=== PATIENT | female | born 1965 | race Two or more races ===

== ENCOUNTER → 2020-12-07 | Outpatient (CLI) | payer MEDICAID ==
[2020-12-07 10:22] LABS: Basophils # (auto) 0.1 10 ^3/uL (0-0.2); Basophils % (auto) 1.1 % (0.0-2.0); Hematocrit 35.7 % (36.0-46.0); Hemoglobin 11.6 g/dL (12.2-16.2); Mean Corpuscular Hgb Conc. 32.5 g/dL (32.0-36.0); Monocytes # (auto) 0.4 10 ^3/uL (0-1.3); Neutrophils # (auto) 5.7 10 ^3/uL (1.6-8.6); Urine Bacteria NONE SEEN /hpf (None Seen); Urine Blood TRACE /uL (Negative); Urine Specific Gravity 1.017 (1.001-1.035); Urine WBC 4 /hpf (0 - 5)
[2020-12-07 10:26] LABS: Eosinophils # (auto) 0.6 10 ^3/uL (0-0.8); Eosinophils % (auto) 5.7 % (0.0-7.0); Lymphocytes % (auto) 30.9 % (10.0-50.0); Mean Corpuscular Hemoglobin 26.3 pg (28.0-32.0); Mean Corpuscular Volume 80.9 fL (80.0-100.0); Monocytes % (auto) 3.7 % (0.0-12.0); Neutrophils % (auto) 58.6 % (37.0-80.0); Platelet Count (auto) 354 10^3/uL (140-450); Red Blood Cells 4.41 10^6/uL (4.0-5.20); Red Cell Distribution Width 16.8 % (11.8-14.3); White Blood Cell 9.8 10^3/uL (4.4-10.8)
[2020-12-07 10:51] LABS: Albumin 1.5 g/dL (3.4-5.0); Potassium 4.6 mmol/L (3.5-5.1)
[2020-12-07 10:55] LABS: BUN/Creatinine Ratio 13.9; Bilirubin, Total 0.2 mg/dL (0.2-1.0); Total Protein 5.9 g/dL (6.4-8.2)
== END | disposition home or self-care (01) ==
LOC: LAB 09:47
PROVIDERS: ATTEND Internal Medicine
DX: I10 Essential (primary) hypertension (principal); E11.9 Type 2 diabetes mellitus without complications; E78.5 Hyperlipidemia, unspecified; Z12.11 Encounter for screening for malignant neoplasm of colon
CPT/HCPCS: 36415; 80053; 80061; 81001; 82043; 83036; 85025

== ENCOUNTER → 2021-03-13 | Outpatient (CLI) | payer MEDICAID ==
[2021-03-13 10:24] LABS: Alanine Aminotransferase 11 U/L (13-56); Albumin 1.6 g/dL (3.4-5.0); Alkaline Phosphatase 93 U/L (45-117); Aspartate Aminotransferase 14 U/L (15-37); Bilirubin, Direct < 0.1 mg/dL (0-0.2); Bilirubin, Total 0.2 mg/dL (0.2-1.0); Total Protein 5.5 g/dL (6.4-8.2)
== END | disposition home or self-care (01) ==
LOC: LAB 09:00
PROVIDERS: ATTEND Internal Medicine
DX: E11.9 Type 2 diabetes mellitus without complications (principal)
CPT/HCPCS: 36415; 80076

== ENCOUNTER → 2021-05-08 | Outpatient (CLI) | payer MEDICAID ==
[2021-05-08 09:00] LABS: Alanine Aminotransferase 17 U/L (13-56); Albumin 1.7 g/dL (3.4-5.0); Bilirubin, Direct < 0.1 mg/dL (0-0.2)
[2021-05-08 09:03] LABS: Alkaline Phosphatase 105 U/L (45-117); Aspartate Aminotransferase 16 U/L (15-37); Bilirubin, Total 0.2 mg/dL (0.2-1.0); Cholesterol 269 mg/dL (< 200); HDL Cholesterol 58 mg/dL (40-59); LDL Cholesterol 159 mg/dL (< 100); Total Protein 5.5 g/dL (6.4-8.2); Triglycerides 274 mg/dL (< 150)
== END | disposition home or self-care (01) ==
LOC: LAB 08:20
PROVIDERS: ATTEND Internal Medicine
DX: E11.9 Type 2 diabetes mellitus without complications (principal); E78.5 Hyperlipidemia, unspecified
CPT/HCPCS: 36415; 80061; 80076; 83036

== ENCOUNTER 2021-05-22 08:58 | Inpatient (IN) | payer MEDICAID ==
[~2021-05-22] VITALS: Ht 162.6 cm; Wt 84.2 kg
[2021-05-22 09:38] LABS: Basophils # (auto) 0.1 10 ^3/uL (0-0.2); Basophils % (auto) 1.2 % (0.0-2.0); Eosinophils # (auto) 0.7 10 ^3/uL (0-0.8); Eosinophils % (auto) 7.1 % (0.0-7.0); Hematocrit 34.8 % (36.0-46.0); Hemoglobin 11.6 g/dL (12.2-16.2); Lymphocytes # (auto) 3.2 10 ^3/uL (0.4-5.4); Lymphocytes % (auto) 30.7 % (10.0-50.0); Mean Corpuscular Hemoglobin 29.3 pg (28.0-32.0); Mean Corpuscular Hgb Conc. 33.2 g/dL (32.0-36.0); Mean Corpuscular Volume 88.1 fL (80.0-100.0); Monocytes # (auto) 0.5 10 ^3/uL (0-1.3); Neutrophils # (auto) 5.8 10 ^3/uL (1.6-8.6); Red Blood Cells 3.95 10^6/uL (4.0-5.20); Red Cell Distribution Width 16.2 % (11.8-14.3); White Blood Cell 10.3 10^3/uL (4.4-10.8)
[2021-05-22 10:02] LABS: Potassium 4.6 mmol/L (3.5-5.1)
[2021-05-22 10:11] LABS: Albumin 1.6 g/dL (3.4-5.0); BUN/Creatinine Ratio 13.9; Bilirubin, Total 0.2 mg/dL (0.2-1.0); Calcium 7.3 mg/dL (8.5-10.1); Total Protein 5.8 g/dL (6.4-8.2)
[2021-05-22] MEDS ORDERED: ONDANSETRON HCL 4 MG/2 ML VIAL IV ONE (10:30)
[2021-05-22] MEDS ORDERED: MORPHINE SULFATE 4 MG/ML SYR/VIAL IV ONE (10:30)
[2021-05-22] MEDS ORDERED: NITROGLYCERIN 0.4 MG SL TAB SL ONE (10:30)
[2021-05-22] MEDS ORDERED: ASPirin 81 mg TAB PO ONE (10:30)
[2021-05-22] MEDS ORDERED: SODIUM CHLORIDE 0.9% 1,000 ML IV ONE (10:30)
[2021-05-22] MEDS ORDERED: ACETAMINOPHEN 500 MG TAB PO PRN (13:00)
[2021-05-22] MEDS ORDERED: ONDANSETRON HCL 4 MG/2 ML VIAL IV PRN (13:00)
[2021-05-22] MEDS ORDERED: MORPHINE SULF INJ 2 MG/ML SYRINGE 1ML IV PRN ×2 (13:00)
[2021-05-22] MEDS ORDERED: NITROGLYCERIN 0.4 MG SL TAB SL PRN (13:00)
[2021-05-22] MEDS ORDERED: ENOXAPARIN SOD 80 MG/0.8ML SYRINGE SC ONE (13:00)
[2021-05-22] MEDS: SODIUM CHLORIDE 0.9% 1,000 ML IV SCH ×2 (13:38→22:01)
[2021-05-22] MEDS: METOPROLOL TARTRATE 25 MG TAB PO SCH ×2 (14:00→22:00)
[2021-05-22] MEDS: InsuLIN REG 1unit/0.01ml Soln (100units/ml) SC SCH ×2 (17:00→22:00)
[2021-05-22] MEDS: ACCU-CHEK COMFORT CURVE STRIP VI SCH ×2 (17:02→22:01)
[2021-05-22 18:54] LABS: CRP High Sensitivity 0.1 mg/dL (< 0.3)
[2021-05-22 22:00] VITALS: BP 161/88
[2021-05-22 22:28] VITALS: BP 161/88
[2021-05-23 05:00] VITALS: BP 148/87
[2021-05-23 05:19] LABS: Basophils # (auto) 0.1 10 ^3/uL (0-0.2); Eosinophils # (auto) 0.6 10 ^3/uL (0-0.8); Eosinophils % (auto) 6.3 % (0.0-7.0); Hematocrit 31.4 % (36.0-46.0); Hemoglobin 10.9 g/dL (12.2-16.2); Lymphocytes # (auto) 2.6 10 ^3/uL (0.4-5.4); Lymphocytes % (auto) 27.6 % (10.0-50.0); Mean Corpuscular Hemoglobin 30.6 pg (28.0-32.0); Mean Corpuscular Hgb Conc. 34.6 g/dL (32.0-36.0); Mean Corpuscular Volume 88.4 fL (80.0-100.0); Monocytes # (auto) 0.4 10 ^3/uL (0-1.3); Monocytes % (auto) 4.5 % (0.0-12.0); Neutrophils # (auto) 5.7 10 ^3/uL (1.6-8.6); Neutrophils % (auto) 60.6 % (37.0-80.0); Red Blood Cells 3.55 10^6/uL (4.0-5.20); Red Cell Distribution Width 16.4 % (11.8-14.3); White Blood Cell 9.3 10^3/uL (4.4-10.8)
[2021-05-23 05:35] LABS: INR 0.99 (0.9-1.15); Partial Thromboplastin Time 30.5 sec (23.0-31.2)
[2021-05-23 05:44] LABS: BUN/Creatinine Ratio 16.4; Calcium 7.1 mg/dL (8.5-10.1); Potassium 4.8 mmol/L (3.5-5.1)
[2021-05-23] MEDS: METOPROLOL TARTRATE 25 MG TAB PO SCH ×3 (05:47→21:51)
[2021-05-23] MEDS: ACCU-CHEK COMFORT CURVE STRIP VI SCH ×4 (06:17→21:51)
[2021-05-23] MEDS: InsuLIN REG 1unit/0.01ml Soln (100units/ml) SC SCH ×4 (06:17→21:51)
[2021-05-23 08:15] VITALS: BP 172/86
[2021-05-23] MEDS ORDERED: hydrALAZINE HCL 20 MG/ML VL IV PRN (08:45)
[2021-05-23] MEDS: ENOXAPARIN SOD 80 MG/0.8ML SYRINGE SC SCH (09:40)
[2021-05-23] MEDS: ASPirin 81 mg TAB PO SCH (10:00)
[2021-05-23] MEDS: SODIUM CHLORIDE 0.9% 1,000 ML IV SCH ×2 (11:10→12:16)
[2021-05-23 12:23] LABS: Amphetamine Screen, Urine NEGATIVE (NEGATIVE); Barbiturate Scree,Urine NEGATIVE (NEGATIVE); Benzodiazephine Screen, Urine NEGATIVE (NEGATIVE); Cannabinoid Screen, Urine NEGATIVE (NEGATIVE); Cocaine Screen, Urine NEGATIVE (NEGATIVE); Opiate Scree,Urine NEGATIVE (NEGATIVE); Phencyclidine Screen, Urine NEGATIVE (NEGATIVE)
[2021-05-23 13:00] VITALS: BP 159/81
[2021-05-23] MEDS: amLODIPine BESYLATE 5 MG TAB PO SCH (13:00)
[2021-05-23] MEDS ORDERED: cloNIDine HCL 0.1 MG TAB PO PRN (13:30)
[2021-05-23] MEDS ORDERED: METF-370 PO (14:46)
[2021-05-23] MEDS ORDERED: GABA300C10 PO (14:47)
[2021-05-23 17:00] VITALS: BP 162/89
[2021-05-23 22:00] VITALS: BP 157/86
[2021-05-24 00:20] LABS: Urine Bacteria FEW /hpf (None Seen); Urine Blood TRACE /uL (Negative); Urine Specific Gravity 1.014 (1.001-1.035); Urine WBC 20 /hpf (0 - 5); Urine WBC Clumps PRESENT /hpf (None Seen)
[2021-05-24 00:25] LABS: Protein, Urine 805.9 mg/dL (0.0-11.9)
[2021-05-24] MEDS: SODIUM CHLORIDE 0.9% 1,000 ML IV SCH ×2 (05:00→17:14)
[2021-05-24 05:13] VITALS: BP 140/70
[2021-05-24 05:54] LABS: Basophils # (auto) 0.1 10 ^3/uL (0-0.2); Basophils % (auto) 1.3 % (0.0-2.0); Eosinophils # (auto) 0.7 10 ^3/uL (0-0.8); Hematocrit 32.3 % (36.0-46.0); Hemoglobin 10.8 g/dL (12.2-16.2); Lymphocytes # (auto) 2.9 10 ^3/uL (0.4-5.4); Lymphocytes % (auto) 30.2 % (10.0-50.0); Mean Corpuscular Hemoglobin 29.4 pg (28.0-32.0); Mean Corpuscular Hgb Conc. 33.5 g/dL (32.0-36.0); Mean Corpuscular Volume 87.6 fL (80.0-100.0); Monocytes # (auto) 0.5 10 ^3/uL (0-1.3); Monocytes % (auto) 4.7 % (0.0-12.0); Neutrophils # (auto) 5.5 10 ^3/uL (1.6-8.6); Neutrophils % (auto) 56.8 % (37.0-80.0); Red Blood Cells 3.69 10^6/uL (4.0-5.20); Red Cell Distribution Width 15.9 % (11.8-14.3); White Blood Cell 9.7 10^3/uL (4.4-10.8)
[2021-05-24] MEDS: METOPROLOL TARTRATE 25 MG TAB PO SCH ×3 (06:00→22:04)
[2021-05-24 06:11] LABS: BUN/Creatinine Ratio 18.3; Calcium 7.4 mg/dL (8.5-10.1); Potassium 4.5 mmol/L (3.5-5.1)
[2021-05-24] MEDS: ACCU-CHEK COMFORT CURVE STRIP VI SCH ×4 (06:26→22:04)
[2021-05-24] MEDS: InsuLIN REG 1unit/0.01ml Soln (100units/ml) SC SCH ×4 (07:00→22:00)
[2021-05-24 08:29] VITALS: BP 159/88
[2021-05-24] MEDS: ASPirin 81 mg TAB PO SCH (09:12)
[2021-05-24] MEDS: CITALOPRAM HYDROBR 20 MG TAB PO SCH (09:13)
[2021-05-24] MEDS: ENOXAPARIN SOD 80 MG/0.8ML SYRINGE SC SCH (09:13)
[2021-05-24] MEDS: amLODIPine BESYLATE 5 MG TAB PO SCH (09:14)
[2021-05-24 09:26] LABS: Hepatitis B Surface Antibody Negative
[2021-05-24 11:50] LABS: Hepatitis B Surface Antigen Negative (Negative)
[2021-05-24] MEDS ORDERED: ACETYLCYSTEINE ORAL for CIN 20%(200MG/ML) 4ML PO ONE (12:00)
[2021-05-24 12:26] VITALS: BP 118/71
[2021-05-24 16:50] VITALS: BP 139/94
[2021-05-24] MEDS: ACETYLCYSTEINE ORAL for CIN 20%(200MG/ML) 4ML PO SCH (22:03)
[2021-05-24] MEDS: hydrALAZINE HCL 25 MG TAB PO SCH (22:04)
[2021-05-24 22:26] VITALS: BP 161/87
[2021-05-25] MEDS: SODIUM CHLORIDE 0.9% 1,000 ML IV SCH ×2 (01:32→12:25)
[2021-05-25] MEDS: ACCU-CHEK COMFORT CURVE STRIP VI SCH ×3 (06:20→17:00)
[2021-05-25] MEDS: hydrALAZINE HCL 25 MG TAB PO SCH ×2 (06:20→14:00)
[2021-05-25] MEDS: METOPROLOL TARTRATE 25 MG TAB PO SCH ×2 (06:22→16:07)
[2021-05-25] MEDS: InsuLIN REG 1unit/0.01ml Soln (100units/ml) SC SCH ×3 (06:25→17:52)
[2021-05-25 07:48] LABS: Basophils # (auto) 0.1 10 ^3/uL (0-0.2); Basophils % (auto) 1.2 % (0.0-2.0); Eosinophils # (auto) 0.4 10 ^3/uL (0-0.8); Hematocrit 31.7 % (36.0-46.0); Hemoglobin 10.8 g/dL (12.2-16.2); Lymphocytes # (auto) 2.5 10 ^3/uL (0.4-5.4); Lymphocytes % (auto) 25.8 % (10.0-50.0); Mean Corpuscular Hemoglobin 29.9 pg (28.0-32.0); Mean Corpuscular Hgb Conc. 34.1 g/dL (32.0-36.0); Mean Corpuscular Volume 87.8 fL (80.0-100.0); Monocytes # (auto) 0.4 10 ^3/uL (0-1.3); Monocytes % (auto) 3.7 % (0.0-12.0); Neutrophils # (auto) 6.2 10 ^3/uL (1.6-8.6); Neutrophils % (auto) 65.3 % (37.0-80.0); Red Blood Cells 3.61 10^6/uL (4.0-5.20); White Blood Cell 9.6 10^3/uL (4.4-10.8)
[2021-05-25 07:57] LABS: Calcium 7.1 mg/dL (8.5-10.1); Potassium 4.5 mmol/L (3.5-5.1)
[2021-05-25] MEDS ORDERED: LIDOCAINE 2%HCL (LOCAL ANESTH.) INJ 20ML MDV ONE (08:10)
[2021-05-25] MEDS ORDERED: ANGIOMAX 250 MG VIAL IV ONE (09:47)
[2021-05-25] MEDS ORDERED: fentaNYL CITRATE 100 MCG/2 ML VL ONE (09:47)
[2021-05-25] MEDS ORDERED: MIDAZOLAM HCL 2MG/2ML 2ml VIAL (1mg/ml) ONE (09:48)
[2021-05-25] MEDS ORDERED: SODIUM CHL 0.9% 0 ML ONE (09:48)
[2021-05-25] MEDS ORDERED: HEPARIN SODIUM (PORCINE) 5000 UNITS/ML 1ML VIAL ONE (09:49)
[2021-05-25] MEDS ORDERED: VERAPAMIL 2.5MG/ML INJ 2ML VIAL IV ONE (09:49)
[2021-05-25] MEDS ORDERED: IODIXANOL 320MG/ML 100ML BTL IV ONE (09:49)
[2021-05-25] MEDS: CITALOPRAM HYDROBR 20 MG TAB PO SCH (12:26)
[2021-05-25] MEDS: ASPirin 81 mg TAB PO SCH (12:26)
[2021-05-25] MEDS: ENOXAPARIN SOD 80 MG/0.8ML SYRINGE SC SCH (12:26)
[2021-05-25] MEDS: ACETYLCYSTEINE ORAL for CIN 20%(200MG/ML) 4ML PO SCH (12:32)
[2021-05-25] MEDS: amLODIPine BESYLATE 5 MG TAB PO SCH (12:34)
[2021-05-25 13:00] VITALS: BP 139/75
[2021-05-25] MEDS ORDERED: AML5T PO (15:23)
[2021-05-25] MEDS ORDERED: CITA-77 PO (15:23)
[2021-05-25] MEDS ORDERED: MET25T PO (15:23)
[2021-05-25] MEDS ORDERED: HYDR25TA87 PO (15:23)
[2021-05-25] MEDS ORDERED: ASPI1CHW15 PO (15:23)
[2021-05-25 17:00] VITALS: BP 138/68
[2021-05-25 17:14] VITALS: BP 137/68
== END 2021-05-25 15:55 | disposition home or self-care (01) | DRG 190 ==
LOC: ER 08:58 → TELE 12:55 → TELE-WESTW 20:46
PROVIDERS: ADMIT Hospitalist; ATTEND Hospitalist
PROC: 4A023N7 Measurement of Cardiac Sampling and Pressure, Left Heart, Percutaneous Approach (ICD-10-PCS; principal; 2021-05-25)
PROC: B2111ZZ Fluoroscopy of Multiple Coronary Arteries using Low Osmolar Contrast (ICD-10-PCS; 2021-05-25)
PROC: B2151ZZ Fluoroscopy of Left Heart using Low Osmolar Contrast (ICD-10-PCS; 2021-05-25)
DX: I21.4 Non-ST elevation (NSTEMI) myocardial infarction (principal); E43 Unspecified severe protein-calorie malnutrition; E11.22 Type 2 diabetes mellitus with diabetic chronic kidney disease; N18.4 Chronic kidney disease, stage 4 (severe); E88.09 Other disorders of plasma-protein metabolism, not elsewhere classified; N04.9 Nephrotic syndrome with unspecified morphologic changes; I25.10 Atherosclerotic heart disease of native coronary artery without angina pectoris; T50.8X5A Adverse effect of diagnostic agents, initial encounter; Z20.822 Contact with and (suspected) exposure to COVID-19; D63.1 Anemia in chronic kidney disease; I13.0 Hypertensive heart and chronic kidney disease with heart failure and stage 1 through stage 4 chronic kidney disease, or unspecified chronic kidney disease; I50.30 Unspecified diastolic (congestive) heart failure; N17.9 Acute kidney failure, unspecified; Z82.41 Family history of sudden cardiac death; Z82.49 Family history of ischemic heart disease and other diseases of the circulatory system; Z83.3 Family history of diabetes mellitus; Z87.891 Personal history of nicotine dependence; Z68.31 Body mass index [BMI] 31.0-31.9, adult
CPT/HCPCS: 36415; 71045; 76775; 80048; 80053; 80061; 80307; 81001; 82570; 82962; 83880; 84156; 84484; 85025; 85610; 85730; 86141; 86703; 86706; 86803; 87340; 87426; 93005; 93306; 96361; 96372; 96374; 96375; 99152; 99291; G0378; J1815; J2250; J2405; Q9967

== ENCOUNTER → 2021-06-01 | Outpatient (CLI) | payer MEDICAID ==
[~2021-06-01] MED LIST: AML5T PO; ASPI1CHW15 PO; CITA-77 PO; GABA300C10 PO; HYDR25TA87 PO; MET25T PO; METF-370 PO
[2021-06-01 10:34] LABS: Follicle Stimulating Hormone 110.92 IU/L (SEE BELOW); Leuteinizing Hormone 58.6 IU/L
== END | disposition home or self-care (01) ==
LOC: LAB 09:35
PROVIDERS: ATTEND Obstetrics & Gynecology
DX: N95.1 Menopausal and female climacteric states (principal)
CPT/HCPCS: 36415; 82670; 83001; 83002; 84403; 84443

== ENCOUNTER 2021-08-27 09:22 | Inpatient (IN) | payer MEDICAID ==
[~2021-08-27] VITALS: Ht 162.6 cm; Wt 94.3 kg
[2021-08-27 11:09] LABS: Basophils # (auto) 0.1 10 ^3/uL (0-0.2); Eosinophils # (auto) 1.1 10 ^3/uL (0-0.8); Eosinophils % (auto) 10.4 % (0.0-7.0); Lymphocytes # (auto) 1.5 10 ^3/uL (0.4-5.4); Lymphocytes % (auto) 13.9 % (10.0-50.0); Monocytes # (auto) 0.6 10 ^3/uL (0-1.3); Neutrophils # (auto) 7.2 10 ^3/uL (1.6-8.6); Neutrophils % (auto) 68.7 % (37.0-80.0); Red Blood Cells 3.49 10^6/uL (4.0-5.20); White Blood Cell 10.5 10^3/uL (4.4-10.8)
[2021-08-27 11:10] LABS: Hematocrit 30.1 % (36.0-46.0); Hemoglobin 9.7 g/dL (12.2-16.2); Mean Corpuscular Hemoglobin 27.8 pg (28.0-32.0); Mean Corpuscular Hgb Conc. 32.2 g/dL (32.0-36.0); Mean Corpuscular Volume 86.3 fL (80.0-100.0)
[2021-08-27 11:30] LABS: Albumin 1.8 g/dL (3.4-5.0); Calcium 7.5 mg/dL (8.5-10.1)
[2021-08-27 11:34] LABS: BUN/Creatinine Ratio 14.4; Bilirubin, Total 0.4 mg/dL (0.2-1.0); Total Protein 5.3 g/dL (6.4-8.2)
[2021-08-27 12:18] LABS: Potassium 5.7 mmol/L (3.5-5.1)
[2021-08-27 12:49] LABS: Urine Amorphous Crystal FEW /hpf (None Seen); Urine Bacteria FEW /hpf (None Seen); Urine Blood 1+ /uL (Negative); Urine Hyaline Cast FEW /lpf (0 - 2); Urine WBC 5 /hpf (0 - 5)
[2021-08-27] MEDS ORDERED: InsuLIN REG 1unit/0.01ml Soln (100units/ml) IV ONE (13:15)
[2021-08-27] MEDS ORDERED: SODIUM BICARBONATE 8.4% INJ 50ML SYRINGE IV ONE (13:15)
[2021-08-27] MEDS ORDERED: DEXTROSE (50%) 50ML SYRG IV ONE (13:15)
[2021-08-27] MEDS ORDERED: ALBUTEROL SULF 2.5 MG/0.5ML(0.5%) NEB SOLN NEB ONE (13:15)
[2021-08-27] MEDS ORDERED: SODIUM ZIRCONIUM CYCL 10 GM PAK PO ONE (13:15)
[2021-08-27] MEDS ORDERED: CALCIUM GLUC 1,000mg/50ml-NS 50 ML IV ONE (13:15)
[2021-08-27] MEDS ORDERED: ENOXAPARIN SOD 80 MG/0.8ML SYRINGE SC ONE (13:15)
[2021-08-27] MEDS ORDERED: FUROSEMIDE 40 MG/4 ML VIAL IV ONE (13:15)
[2021-08-27] MEDS ORDERED: HYDROcodone-ACET 5/325MG TAB PO PRN (16:30)
[2021-08-27] MEDS ORDERED: NITROGLYCERIN 0.4 MG SL TAB SL PRN (16:30)
[2021-08-27] MEDS ORDERED: MORPHINE SULFATE INJECTION 2 MG/ML SYRG IV PRN (16:30)
[2021-08-27] MEDS ORDERED: ONDANSETRON HCL 4 MG/2 ML VIAL IV PRN (16:30)
[2021-08-27 17:23] LABS: Potassium 4.8 mmol/L (3.5-5.1)
[2021-08-27 17:45] LABS: Alcohol, Urine < 3.0 mg/dL (0-10); Amphetamine Screen, Urine NEGATIVE (NEGATIVE); Barbiturate Scree,Urine NEGATIVE (NEGATIVE); Benzodiazephine Screen, Urine NEGATIVE (NEGATIVE); Cannabinoid Screen, Urine NEGATIVE (NEGATIVE); Cocaine Screen, Urine NEGATIVE (NEGATIVE); Opiate Scree,Urine NEGATIVE (NEGATIVE); Phencyclidine Screen, Urine NEGATIVE (NEGATIVE)
[2021-08-27] MEDS: FUROSEMIDE 20 MG/2 ML VIAL IV SCH (18:00)
[2021-08-27 20:06] LABS: BUN/Creatinine Ratio 14.6; Calcium 7.6 mg/dL (8.5-10.1)
[2021-08-27] MEDS: SODIUM ZIRCONIUM CYCL 10 GM PAK PO SCH (21:03)
[2021-08-27] MEDS ORDERED: FAMOTIDINE 20 MG TAB PO SCH (22:00)
[2021-08-27] MEDS: hydrALAZINE HCL 25 MG TAB PO SCH (23:12)
[2021-08-27] MEDS: METOPROLOL TARTRATE 25 MG TAB PO SCH (23:13)
[2021-08-28] MEDS: FUROSEMIDE 20 MG/2 ML VIAL IV SCH ×2 (06:12→17:34)
[2021-08-28] MEDS: hydrALAZINE HCL 25 MG TAB PO SCH ×3 (06:12→20:42)
[2021-08-28] MEDS: SODIUM ZIRCONIUM CYCL 10 GM PAK PO SCH ×2 (09:28→20:42)
[2021-08-28] MEDS: GABAPENTIN 300 MG CAP PO SCH (09:36)
[2021-08-28] MEDS: CITALOPRAM HYDROBR 20 MG TAB PO SCH (09:36)
[2021-08-28] MEDS: METOPROLOL TARTRATE 25 MG TAB PO SCH ×2 (09:36→20:44)
[2021-08-28 09:37] LABS: Calcium 7.6 mg/dL (8.5-10.1)
[2021-08-28] MEDS: amLODIPine BESYLATE 5 MG TAB PO SCH (09:37)
[2021-08-28 09:39] LABS: BUN/Creatinine Ratio 14.9
[2021-08-28 10:36] LABS: Potassium 5.7 mmol/L (3.5-5.1)
[2021-08-28] MEDS ORDERED: INFLUENZA QUAD 2021-2022 0.5 ML SYRG IM ONE (12:15)
[2021-08-28] MEDS ORDERED: SODIUM ZIRCONIUM CYCL 10 GM PAK PO ONE (12:45)
[2021-08-28 12:53] VITALS: BP 144/81
[2021-08-28] MEDS ORDERED: ENOXAPARIN SOD 30 MG/0.3 ML SYRINGE SC ONE (14:00)
[2021-08-28 16:54] VITALS: BP 127/65
[2021-08-28 22:00] VITALS: BP 153/92
[2021-08-29 05:00] VITALS: BP 152/87
[2021-08-29 06:01] LABS: BUN/Creatinine Ratio 15.2; Calcium 7.4 mg/dL (8.5-10.1); Potassium 5.2 mmol/L (3.5-5.1)
[2021-08-29] MEDS: FUROSEMIDE 20 MG/2 ML VIAL IV SCH (06:29)
[2021-08-29] MEDS: hydrALAZINE HCL 25 MG TAB PO SCH ×2 (06:30→13:14)
[2021-08-29 09:00] VITALS: BP 155/92
[2021-08-29] MEDS ORDERED: ENOXAPARIN SOD 30 MG/0.3 ML SYRINGE SC SCH (10:00)
[2021-08-29 10:15] LABS: Magnesium 2.4 mg/dL (1.6-2.6); Phosphorus 5.4 mg/dL (2.5-4.90)
[2021-08-29] MEDS: SODIUM ZIRCONIUM CYCL 10 GM PAK PO SCH (10:43)
[2021-08-29] MEDS: GABAPENTIN 300 MG CAP PO SCH (10:44)
[2021-08-29] MEDS: CITALOPRAM HYDROBR 20 MG TAB PO SCH (10:44)
[2021-08-29] MEDS: METOPROLOL TARTRATE 25 MG TAB PO SCH (10:44)
[2021-08-29] MEDS: amLODIPine BESYLATE 5 MG TAB PO SCH (10:45)
[2021-08-29] MEDS ORDERED: HYDR25TA87 PO (11:58)
[2021-08-29 13:00] VITALS: BP 151/79
[2021-08-29] MEDS ORDERED: INFLUENZA QUAD 2021-2022 0.5 ML SYRG IM ONE (14:33)
== END 2021-08-29 15:25 | disposition home or self-care (01) | DRG 190 ==
LOC: ER 09:22 → TELE 16:17 → TELE-CENTR 08-28 10:12
PROVIDERS: ADMIT Hospitalist; ATTEND Hospitalist
DX: I21.4 Non-ST elevation (NSTEMI) myocardial infarction (principal); I50.31 Acute diastolic (congestive) heart failure; E43 Unspecified severe protein-calorie malnutrition; E11.22 Type 2 diabetes mellitus with diabetic chronic kidney disease; E87.5 Hyperkalemia; Z20.822 Contact with and (suspected) exposure to COVID-19; D63.8 Anemia in other chronic diseases classified elsewhere; I11.0 Hypertensive heart disease with heart failure; E78.5 Hyperlipidemia, unspecified; H54.7 Unspecified visual loss; I25.10 Atherosclerotic heart disease of native coronary artery without angina pectoris; N18.4 Chronic kidney disease, stage 4 (severe); Z23 Encounter for immunization; Z79.84 Long term (current) use of oral hypoglycemic drugs; Z82.49 Family history of ischemic heart disease and other diseases of the circulatory system; Z83.3 Family history of diabetes mellitus; Z68.35 Body mass index [BMI] 35.0-35.9, adult
CPT/HCPCS: 36415; 70450; 71045; 76775; 78582; 80048; 80053; 80307; 81001; 82962; 83735; 83880; 84100; 84132; 84484; 85025; 87426; 90686; 93005; 93970; 94644; 96365; 96372; 96375; 99291; G0378

== ENCOUNTER 2021-09-11 10:48 | Inpatient (IN) | payer MEDICAID ==
[~2021-09-11] VITALS: Ht 162.6 cm; Wt 93.7 kg
[2021-09-11] MEDS ORDERED: cloNIDine HCL 0.1 MG TAB PO ONE (11:15)
[2021-09-11] MEDS ORDERED: cefTRIAXone 1GM/50ML D5W 50 ML IV ONE (12:00)
[2021-09-11] MEDS ORDERED: FUROSEMIDE 40 MG/4 ML VIAL IV ONE (12:00)
[2021-09-11 12:05] LABS: Basophils # (auto) 0.1 10 ^3/uL (0-0.2); Basophils % (auto) 1.3 % (0.0-2.0); Eosinophils % (auto) 12.8 % (0.0-7.0); Hematocrit 28.5 % (36.0-46.0); Hemoglobin 9.2 g/dL (12.2-16.2); Lymphocytes # (auto) 1.3 10 ^3/uL (0.4-5.4); Lymphocytes % (auto) 15.5 % (10.0-50.0); Mean Corpuscular Hemoglobin 26.8 pg (28.0-32.0); Mean Corpuscular Hgb Conc. 32.3 g/dL (32.0-36.0); Mean Corpuscular Volume 82.9 fL (80.0-100.0); Monocytes # (auto) 0.7 10 ^3/uL (0-1.3); Monocytes % (auto) 8.7 % (0.0-12.0); Neutrophils % (auto) 61.7 % (37.0-80.0); Red Blood Cells 3.43 10^6/uL (4.0-5.20); Red Cell Distribution Width 16.2 % (11.8-14.3); White Blood Cell 8.2 10^3/uL (4.4-10.8)
[2021-09-11 12:27] LABS: Albumin 1.6 g/dL (3.4-5.0); Calcium 7.7 mg/dL (8.5-10.1); Potassium 4.3 mmol/L (3.5-5.1)
[2021-09-11 12:33] LABS: BUN/Creatinine Ratio 15.7; Bilirubin, Total 0.2 mg/dL (0.2-1.0); Total Protein 5.8 g/dL (6.4-8.2)
[2021-09-11 14:14] LABS: Urine Bacteria FEW /hpf (None Seen); Urine Blood 1+ /uL (Negative); Urine Specific Gravity 1.011 (1.001-1.035); Urine WBC 14 /hpf (0 - 5)
[2021-09-11] MEDS ORDERED: MORPHINE SULFATE INJECTION 2 MG/ML SYRG IV PRN (14:15)
[2021-09-11] MEDS ORDERED: ACETAMINOPHEN 325 MG TAB PO PRN (14:15)
[2021-09-11] MEDS ORDERED: HYDROcodone-ACET 5/325MG TAB PO PRN (14:15)
[2021-09-11] MEDS ORDERED: DEXTROSE (50%) 50ML SYRG IV PRN (14:15)
[2021-09-11] MEDS ORDERED: NITROGLYCERIN 0.4 MG SL TAB SL PRN (14:15)
[2021-09-11] MEDS ORDERED: MORPHINE SULFATE 4 MG/ML SYR/VIAL IV PRN (14:15)
[2021-09-11] MEDS ORDERED: ONDANSETRON HCL 4 MG/2 ML VIAL IV PRN (14:15)
[2021-09-11] MEDS: InsuLIN REG 1unit/0.01ml Soln (100units/ml) SC SCH ×2 (17:00→23:29)
[2021-09-11] MEDS ORDERED: FUROSEMIDE 40 MG/4 ML VIAL IV SCH (18:00)
[2021-09-11] MEDS: ACCU-CHEK COMFORT CURVE STRIP VI SCH ×2 (18:24→22:00)
[2021-09-11] MEDS: FUROSEMIDE 100 MG/10ML VIAL IV SCH (18:25)
[2021-09-11 18:57] LABS: Creatinine, Urine 62 mg/dL (30.0-125.0); Sodium Urine 62 mmol/L (40-220)
[2021-09-11 20:00] VITALS: BP 183/81
[2021-09-11 22:00] VITALS: BP 183/81
[2021-09-11] MEDS: HEPARIN SODIUM (PORCINE) 5000 UNITS/ML 1ML VIAL SC SCH (23:29)
[2021-09-11] MEDS: hydrALAZINE HCL 10 MG TAB PO PRN (23:31)
[2021-09-12] VITALS (7 sets, daily range): BP systolic 140–190; BP diastolic 75–102
[2021-09-12 06:06] LABS: Basophils # (auto) 0.1 10 ^3/uL (0-0.2); Monocytes # (auto) 0.8 10 ^3/uL (0-1.3); Neutrophils # (auto) 5.1 10 ^3/uL (1.6-8.6); White Blood Cell 8.2 10^3/uL (4.4-10.8)
[2021-09-12 06:14] LABS: Basophils % (auto) 1.3 % (0.0-2.0); Eosinophils % (auto) 12.3 % (0.0-7.0); Hematocrit 27.5 % (36.0-46.0); Hemoglobin 8.8 g/dL (12.2-16.2); Lymphocytes # (auto) 1.3 10 ^3/uL (0.4-5.4); Lymphocytes % (auto) 15.8 % (10.0-50.0); Mean Corpuscular Hemoglobin 26.5 pg (28.0-32.0); Mean Corpuscular Hgb Conc. 32.2 g/dL (32.0-36.0); Mean Corpuscular Volume 82.5 fL (80.0-100.0); Monocytes % (auto) 9.2 % (0.0-12.0); Neutrophils % (auto) 61.4 % (37.0-80.0); Nucleated Red Blood Cells % 0.1 %; Red Blood Cells 3.33 10^6/uL (4.0-5.20); Red Cell Distribution Width 16.3 % (11.8-14.3)
[2021-09-12 06:26] LABS: Potassium 3.9 mmol/L (3.5-5.1)
[2021-09-12] MEDS: FUROSEMIDE 100 MG/10ML VIAL IV SCH ×2 (06:26→17:51)
[2021-09-12] MEDS: ACCU-CHEK COMFORT CURVE STRIP VI SCH ×4 (06:27→22:00)
[2021-09-12 06:35] LABS: Albumin 1.4 g/dL (3.4-5.0); Bilirubin, Total 0.2 mg/dL (0.2-1.0); Calcium 7.2 mg/dL (8.5-10.1); Total Protein 5.4 g/dL (6.4-8.2)
[2021-09-12] MEDS: InsuLIN REG 1unit/0.01ml Soln (100units/ml) SC SCH ×4 (06:36→22:00)
[2021-09-12] MEDS: HEPARIN SODIUM (PORCINE) 5000 UNITS/ML 1ML VIAL SC SCH ×2 (09:44→23:12)
[2021-09-12] MEDS: hydrALAZINE HCL 10 MG TAB PO PRN (09:48)
[2021-09-12] MEDS: amLODIPine BESYLATE 5 MG TAB PO SCH (12:10)
[2021-09-12] MEDS ORDERED: hydrALAZINE HCL 25 MG TAB PO SCH (14:00)
[2021-09-12] MEDS: hydrALAZINE HCL 25 MG TAB PO SCH ×2 (14:52→23:24)
[2021-09-12] MEDS: CARVEDILOL 3.125 MG TAB PO SCH (23:22)
[2021-09-13] VITALS (7 sets, daily range): BP systolic 133–190; BP diastolic 70–94
[2021-09-13] MEDS: FUROSEMIDE 100 MG/10ML VIAL IV SCH ×2 (06:29→17:32)
[2021-09-13] MEDS: ACCU-CHEK COMFORT CURVE STRIP VI SCH ×4 (06:29→22:00)
[2021-09-13] MEDS: InsuLIN REG 1unit/0.01ml Soln (100units/ml) SC SCH ×4 (06:29→22:00)
[2021-09-13] MEDS: hydrALAZINE HCL 25 MG TAB PO SCH ×3 (06:30→22:33)
[2021-09-13] MEDS: amLODIPine BESYLATE 5 MG TAB PO SCH (09:50)
[2021-09-13] MEDS: CARVEDILOL 3.125 MG TAB PO SCH ×2 (09:50→22:34)
[2021-09-13] MEDS: HEPARIN SODIUM (PORCINE) 5000 UNITS/ML 1ML VIAL SC SCH ×2 (09:51→22:36)
[2021-09-14 05:00] VITALS: BP 146/72
[2021-09-14] MEDS: FUROSEMIDE 100 MG/10ML VIAL IV SCH ×2 (06:00→17:42)
[2021-09-14] MEDS: hydrALAZINE HCL 25 MG TAB PO SCH ×3 (06:01→21:41)
[2021-09-14] MEDS: ACCU-CHEK COMFORT CURVE STRIP VI SCH ×4 (06:59→21:41)
[2021-09-14] MEDS: InsuLIN REG 1unit/0.01ml Soln (100units/ml) SC SCH ×4 (06:59→21:18)
[2021-09-14 08:06] LABS: Immunoglobulin G, Serum 994 mg/dL (586-1602)
[2021-09-14 08:15] VITALS: BP 138/67
[2021-09-14 09:00] VITALS: BP 138/67
[2021-09-14] MEDS: CARVEDILOL 3.125 MG TAB PO SCH ×2 (10:23→21:41)
[2021-09-14] MEDS: amLODIPine BESYLATE 5 MG TAB PO SCH (10:23)
[2021-09-14] MEDS: HEPARIN SODIUM (PORCINE) 5000 UNITS/ML 1ML VIAL SC SCH ×2 (10:24→21:36)
[2021-09-14 13:00] VITALS: BP 166/81
[2021-09-14 14:31] LABS: Calcium 7.1 mg/dL (8.5-10.1); Potassium 3.6 mmol/L (3.5-5.1)
[2021-09-14 14:33] LABS: BUN/Creatinine Ratio 14.6
[2021-09-14 17:09] VITALS: BP 147/81
[2021-09-14 22:34] VITALS: BP 114/62
[2021-09-15 05:00] VITALS: BP 155/72
[2021-09-15] MEDS: FUROSEMIDE 100 MG/10ML VIAL IV SCH (05:23)
[2021-09-15] MEDS: hydrALAZINE HCL 25 MG TAB PO SCH (05:24)
[2021-09-15 06:19] LABS: Albumin 1.6 g/dL (3.4-5.0); BUN/Creatinine Ratio 13.7; Calcium 7.2 mg/dL (8.5-10.1); Potassium 3.7 mmol/L (3.5-5.1)
[2021-09-15 06:21] LABS: Bilirubin, Total 0.2 mg/dL (0.2-1.0); Total Protein 5.1 g/dL (6.4-8.2)
[2021-09-15] MEDS: ACCU-CHEK COMFORT CURVE STRIP VI SCH ×2 (06:45→11:53)
[2021-09-15] MEDS: InsuLIN REG 1unit/0.01ml Soln (100units/ml) SC SCH ×2 (06:45→11:53)
[2021-09-15] MEDS: amLODIPine BESYLATE 5 MG TAB PO SCH (08:36)
[2021-09-15] MEDS: CARVEDILOL 3.125 MG TAB PO SCH (08:36)
[2021-09-15] MEDS: HEPARIN SODIUM (PORCINE) 5000 UNITS/ML 1ML VIAL SC SCH (08:38)
[2021-09-15 09:14] VITALS: BP 102/66
[2021-09-15 13:00] VITALS: BP 137/65
[2021-09-17 13:18] LABS: Hepatitis C Antibody Negative (Negative)
== END 2021-09-15 01:25 | disposition home or self-care (01) | DRG 133 ==
LOC: ER 10:48 → TELE 14:12 → TELE-WESTW 16:35
PROVIDERS: ADMIT Internal Medicine; ATTEND Internal Medicine
DX: J96.01 Acute respiratory failure with hypoxia (principal); N17.0 Acute kidney failure with tubular necrosis; I50.33 Acute on chronic diastolic (congestive) heart failure; E43 Unspecified severe protein-calorie malnutrition; J91.8 Pleural effusion in other conditions classified elsewhere; D63.1 Anemia in chronic kidney disease; E11.649 Type 2 diabetes mellitus with hypoglycemia without coma; E88.09 Other disorders of plasma-protein metabolism, not elsewhere classified; I13.2 Hypertensive heart and chronic kidney disease with heart failure and with stage 5 chronic kidney disease, or end stage renal disease; H70.92 Unspecified mastoiditis, left ear; E11.22 Type 2 diabetes mellitus with diabetic chronic kidney disease; Z20.822 Contact with and (suspected) exposure to COVID-19; E11.65 Type 2 diabetes mellitus with hyperglycemia; E66.01 Morbid (severe) obesity due to excess calories; E78.5 Hyperlipidemia, unspecified; E11.42 Type 2 diabetes mellitus with diabetic polyneuropathy; N18.5 Chronic kidney disease, stage 5; N63.20 Unspecified lump in the left breast, unspecified quadrant; Z68.38 Body mass index [BMI] 38.0-38.9, adult; Z82.49 Family history of ischemic heart disease and other diseases of the circulatory system; Z83.3 Family history of diabetes mellitus
CPT/HCPCS: 36415; 71045; 71250; 74176; 80048; 80053; 81001; 82306; 82570; 82784; 82962; 83036; 83605; 83880; 83970; 84100; 84156; 84300; 84484; 85025; 86334; 86335; 86803; 87040; 87081; 87340; 87426; 93005; 96365; 96375; 97116; 97162; 97530; 99291; G0378; J0696; J1815

== ENCOUNTER 2021-09-25 14:27 | Inpatient (IN) | payer MEDICAID ==
[~2021-09-25] VITALS: Ht 162.6 cm; Wt 88.6 kg
[2021-09-25] MEDS ORDERED: FUROSEMIDE 40 MG/4 ML VIAL IV ONE (16:15)
[2021-09-25 16:21] LABS: Basophils # (auto) 0.1 10 ^3/uL (0-0.2); Basophils % (auto) 1.1 % (0.0-2.0); Eosinophils # (auto) 1.5 10 ^3/uL (0-0.8); Eosinophils % (auto) 14.4 % (0.0-7.0); Hematocrit 29.7 % (36.0-46.0); Hemoglobin 9.2 g/dL (12.2-16.2); Lymphocytes % (auto) 18.8 % (10.0-50.0); Mean Corpuscular Hemoglobin 25.4 pg (28.0-32.0); Mean Corpuscular Hgb Conc. 30.9 g/dL (32.0-36.0); Mean Corpuscular Volume 82.3 fL (80.0-100.0); Monocytes # (auto) 0.7 10 ^3/uL (0-1.3); Monocytes % (auto) 6.3 % (0.0-12.0); Neutrophils # (auto) 6.4 10 ^3/uL (1.6-8.6); Neutrophils % (auto) 59.4 % (37.0-80.0); Red Blood Cells 3.61 10^6/uL (4.0-5.20); Red Cell Distribution Width 16.6 % (11.8-14.3); White Blood Cell 10.7 10^3/uL (4.4-10.8)
[2021-09-25 16:40] LABS: Albumin 2.1 g/dL (3.4-5.0); Calcium 7.5 mg/dL (8.5-10.1); Magnesium 2.3 mg/dL (1.6-2.6); Potassium 4.8 mmol/L (3.5-5.1)
[2021-09-25 16:45] LABS: BUN/Creatinine Ratio 23.5; Bilirubin, Total 0.2 mg/dL (0.2-1.0); Total Protein 6.4 g/dL (6.4-8.2)
[2021-09-26] MEDS ORDERED: NITROGLYCERIN 0.4 MG SL TAB SL PRN (01:00)
[2021-09-26] MEDS ORDERED: MORPHINE SULFATE INJECTION 2 MG/ML SYRG IV PRN (01:00)
[2021-09-26] MEDS ORDERED: MORPHINE SULFATE 4 MG/ML SYR/VIAL IV PRN (01:00)
[2021-09-26] MEDS ORDERED: ONDANSETRON HCL 4 MG/2 ML VIAL IV PRN (01:00)
[2021-09-26] MEDS ORDERED: DEXTROSE (50%) 50ML SYRG IV PRN (01:15)
[2021-09-26 04:20] VITALS: BP 134/63
[2021-09-26 04:59] LABS: BUN/Creatinine Ratio 21.2; Calcium 7.4 mg/dL (8.5-10.1); Magnesium 2.1 mg/dL (1.6-2.6)
[2021-09-26 05:00] VITALS: BP 134/63
[2021-09-26] MEDS ORDERED: FUROSEMIDE 100 MG/10ML VIAL IV SCH (06:00)
[2021-09-26] MEDS: HEPARIN SODIUM (PORCINE) 5000 UNITS/ML 1ML VIAL SC SCH ×3 (06:25→22:36)
[2021-09-26] MEDS: ACCU-CHEK COMFORT CURVE STRIP VI SCH ×4 (07:00→22:11)
[2021-09-26] MEDS: InsuLIN REG 1unit/0.01ml Soln (100units/ml) SC SCH ×4 (07:52→22:00)
[2021-09-26 08:47] VITALS: BP 125/69
[2021-09-26 09:00] LABS: Basophils # (auto) 0.1 10 ^3/uL (0-0.2); Basophils % (auto) 0.9 % (0.0-2.0); Hematocrit 26.4 % (36.0-46.0); Hemoglobin 8.4 g/dL (12.2-16.2); Lymphocytes # (auto) 1.7 10 ^3/uL (0.4-5.4); Lymphocytes % (auto) 17.7 % (10.0-50.0); Mean Corpuscular Hemoglobin 26.4 pg (28.0-32.0); Mean Corpuscular Hgb Conc. 31.9 g/dL (32.0-36.0); Mean Corpuscular Volume 82.9 fL (80.0-100.0); Monocytes # (auto) 0.7 10 ^3/uL (0-1.3); Monocytes % (auto) 7.4 % (0.0-12.0); Nucleated Red Blood Cells % 0.1 %; Red Blood Cells 3.18 10^6/uL (4.0-5.20); Red Cell Distribution Width 16.4 % (11.8-14.3); White Blood Cell 9.7 10^3/uL (4.4-10.8)
[2021-09-26 09:03] LABS: Eosinophils # (auto) 1.4 10 ^3/uL (0-0.8); Eosinophils % (auto) 14.8 % (0.0-7.0); Neutrophils # (auto) 5.8 10 ^3/uL (1.6-8.6); Neutrophils % (auto) 59.2 % (37.0-80.0)
[2021-09-26] MEDS: ASPirin-EC 81 mg tab PO SCH (09:07)
[2021-09-26 12:49] VITALS: BP 145/73
[2021-09-26 17:00] VITALS: BP 147/71
[2021-09-26] MEDS: FUROSEMIDE 40 MG/4 ML VIAL IV SCH (18:14)
[2021-09-26 22:00] VITALS: BP 162/78
[2021-09-26] MEDS: ATORVASTATIN 20 MG TAB PO SCH (22:37)
[2021-09-26] MEDS: hydrALAZINE HCL 20 MG/ML VL IV PRN (22:38)
[2021-09-27 05:00] VITALS: BP 144/70
[2021-09-27] MEDS: ACCU-CHEK COMFORT CURVE STRIP VI SCH ×4 (06:12→21:19)
[2021-09-27] MEDS: FUROSEMIDE 40 MG/4 ML VIAL IV SCH ×2 (06:12→17:47)
[2021-09-27] MEDS: HEPARIN SODIUM (PORCINE) 5000 UNITS/ML 1ML VIAL SC SCH ×3 (06:14→21:05)
[2021-09-27] MEDS: InsuLIN REG 1unit/0.01ml Soln (100units/ml) SC SCH ×4 (06:29→21:19)
[2021-09-27 08:07] VITALS: BP 149/73
[2021-09-27] MEDS: ASPirin-EC 81 mg tab PO SCH (09:42)
[2021-09-27] MEDS ORDERED: LORazepam 2MG/ML-1ML VIAL IV ONE (14:00)
[2021-09-27 17:43] VITALS: BP 151/75
[2021-09-27] MEDS: ATORVASTATIN 20 MG TAB PO SCH (21:03)
[2021-09-27 22:00] VITALS: BP 162/82
[2021-09-27] MEDS: hydrALAZINE HCL 20 MG/ML VL IV PRN (22:15)
[2021-09-28 05:00] VITALS: BP 149/73
[2021-09-28] MEDS: HEPARIN SODIUM (PORCINE) 5000 UNITS/ML 1ML VIAL SC SCH ×2 (05:25→14:50)
[2021-09-28] MEDS: FUROSEMIDE 40 MG/4 ML VIAL IV SCH ×2 (05:25→17:54)
[2021-09-28] MEDS: InsuLIN REG 1unit/0.01ml Soln (100units/ml) SC SCH ×3 (06:24→17:00)
[2021-09-28] MEDS: ACCU-CHEK COMFORT CURVE STRIP VI SCH ×3 (06:25→17:54)
[2021-09-28 06:43] LABS: Hematocrit 25.5 % (36.0-46.0); Hemoglobin 8.2 g/dL (12.2-16.2); Red Blood Cells 3.15 10^6/uL (4.0-5.20)
[2021-09-28 06:46] LABS: Mean Corpuscular Hgb Conc. 32.1 g/dL (32.0-36.0); Red Cell Distribution Width 15.9 % (11.8-14.3); White Blood Cell 9.1 10^3/uL (4.4-10.8)
[2021-09-28 06:54] LABS: Calcium 7.5 mg/dL (8.5-10.1); Potassium 4.4 mmol/L (3.5-5.1)
[2021-09-28 06:56] LABS: BUN/Creatinine Ratio 18.8
[2021-09-28 07:08] LABS: Basophils % (manual) 0 (0.0-2.0); Blast Cells 0; Metamyelocytes % 0; Myelocytes % 0; Promyelocytes % 0; Reactive Lymphocytes 0
[2021-09-28 07:57] LABS: Band Neutrophils % (manual) 1; Eosinophils % (manual) 16 (0-7); Lymphocytes % (manual) 10 (10.0-50.0); Monocytes % (manual) 6 (0-12)
[2021-09-28 08:25] VITALS: BP 135/76
[2021-09-28] MEDS: ASPirin-EC 81 mg tab PO SCH (08:30)
[2021-09-28] MEDS ORDERED: amLODIPine BESYLATE 5 MG TAB PO SCH (10:00)
[2021-09-28] MEDS ORDERED: FURO1TAB33 PO (10:26)
[2021-09-28] MEDS ORDERED: METF-370 PO (10:48)
[2021-09-28 12:30] VITALS: BP 146/79
[2021-09-28 16:08] VITALS: BP 146/79
== END 2021-09-28 19:30 | disposition home or self-care (01) | DRG 194 ==
LOC: ER 14:27 → TELE 09-26 00:58 → TELE-WESTW 09-26 04:15
PROVIDERS: ADMIT Hospitalist; ATTEND Hospitalist
DX: I13.0 Hypertensive heart and chronic kidney disease with heart failure and stage 1 through stage 4 chronic kidney disease, or unspecified chronic kidney disease (principal); N17.0 Acute kidney failure with tubular necrosis; J96.01 Acute respiratory failure with hypoxia; I21.4 Non-ST elevation (NSTEMI) myocardial infarction; D63.1 Anemia in chronic kidney disease; E88.09 Other disorders of plasma-protein metabolism, not elsewhere classified; I50.33 Acute on chronic diastolic (congestive) heart failure; E11.22 Type 2 diabetes mellitus with diabetic chronic kidney disease; N18.4 Chronic kidney disease, stage 4 (severe); E66.01 Morbid (severe) obesity due to excess calories; E78.5 Hyperlipidemia, unspecified; H54.7 Unspecified visual loss; H91.90 Unspecified hearing loss, unspecified ear; J98.11 Atelectasis; F32.A Depression, unspecified; Z20.822 Contact with and (suspected) exposure to COVID-19; Z68.34 Body mass index [BMI] 34.0-34.9, adult; Z79.84 Long term (current) use of oral hypoglycemic drugs; I25.2 Old myocardial infarction; Z79.899 Other long term (current) drug therapy; Z82.49 Family history of ischemic heart disease and other diseases of the circulatory system; Z83.3 Family history of diabetes mellitus
CPT/HCPCS: 36415; 70551; 71045; 71250; 80048; 80053; 82962; 83735; 83880; 84484; 85007; 85025; 85027; 85379; 87081; 87426; 93005; 93886; 95819; 96374; G0378

== ENCOUNTER 2022-01-01 09:20 | Inpatient (IN) | payer MEDICAID ==
[2022-01-01] VITALS (11 sets, daily range): BP systolic 97–131; BP diastolic 50–63
[~2022-01-01] VITALS: Ht 160 cm; Wt 69.3 kg
[~2022-01-01 09:20] MED LIST changes: +FURO1TAB33 PO
[2022-01-01 10:22] LABS: Albumin 2.3 g/dL (3.4-5.0); Basophils # (auto) 0.1 10 ^3/uL (0-0.2); Calcium 7.5 mg/dL (8.5-10.1); Eosinophils # (auto) 0.4 10 ^3/uL (0-0.8); Hemoglobin 9.4 g/dL (12.2-16.2); Lymphocytes # (auto) 1.1 10 ^3/uL (0.4-5.4); Monocytes # (auto) 0.7 10 ^3/uL (0-1.3); Monocytes % (auto) 9.8 % (0.0-12.0)
[2022-01-01 10:25] LABS: Eosinophils % (auto) 5.5 % (0.0-7.0); Hematocrit 32.3 % (36.0-46.0); Lymphocytes % (auto) 15.3 % (10.0-50.0); Mean Corpuscular Hgb Conc. 28.9 g/dL (32.0-36.0); Mean Corpuscular Volume 79.6 fL (80.0-100.0); Neutrophils % (auto) 68.4 % (37.0-80.0); Nucleated Red Blood Cells % 1.2 %; Red Blood Cells 4.06 10^6/uL (4.0-5.20); Red Cell Distribution Width 18.6 % (11.8-14.3); White Blood Cell 7.4 10^3/uL (4.4-10.8)
[2022-01-01 10:31] LABS: BUN/Creatinine Ratio 12.3; Bilirubin, Total 0.3 mg/dL (0.2-1.0); Total Protein 6.5 g/dL (6.4-8.2)
[2022-01-01 10:46] LABS: Potassium 5.7 mmol/L (3.5-5.1)
[2022-01-01] MEDS ORDERED: InsuLIN REG 1unit/0.01ml Soln (100units/ml) IV ONE (11:00)
[2022-01-01] MEDS ORDERED: DEXTROSE (50%) 50ML SYRG IV ONE (11:00)
[2022-01-01] MEDS ORDERED: ALBUTEROL SULF 2.5 MG/0.5ML(0.5%) NEB SOLN NEB ONE (11:00)
[2022-01-01] MEDS ORDERED: CALCIUM GLUC 1,000mg/50ml-NS 50 ML IV ONE (11:00)
[2022-01-01] MEDS ORDERED: SODIUM ZIRCONIUM CYCL 10 GM PAK PO ONE (11:00)
[2022-01-01] MEDS ORDERED: FUROSEMIDE 20 MG/2 ML VIAL IV ONE (11:00)
[2022-01-01] MEDS ORDERED: SODIUM BICARBONATE 8.4% INJ 50ML SYRINGE IV ONE (11:00)
[2022-01-01 12:03] LABS: Urine Bacteria NONE SEEN /hpf (None Seen); Urine Blood Negative /uL (Negative); Urine Hyaline Cast FEW /lpf (0 - 2); Urine Specific Gravity 1.024 (1.001-1.035); Urine WBC 11 /hpf (0 - 5)
[2022-01-01] MEDS ORDERED: BUMETANIDE 2.5mg/10ml (0.25 mg/ml) INJ IV SCH (12:15)
[2022-01-01 12:34] LABS: Phosphorus 7.4 mg/dL (2.5-4.90)
[2022-01-01] MEDS ORDERED: NITROGLYCERIN 0.4 MG SL TAB SL PRN (14:00)
[2022-01-01] MEDS ORDERED: MORPHINE SULFATE INJECTION 2 MG/ML SYRG IV PRN (14:00)
[2022-01-01] MEDS ORDERED: ACETAMINOPHEN 325 MG TAB PO PRN (14:00)
[2022-01-01] MEDS: DOPamine 1600MCG/ML D5W 250 ML IV SCH ×2 (14:16→14:19)
[2022-01-01] MEDS: BUMETANIDE INJECTION 12.5 MG in GIVE UN-DILUTED 0 ML IV SCH (14:17)
[2022-01-01 14:29] LABS: INR 1.21 (0.9-1.15); Partial Thromboplastin Time 28.1 sec (23.6-33.0)
[2022-01-01 15:23] LABS: BUN/Creatinine Ratio 11.9; Calcium 7.5 mg/dL (8.5-10.1); Potassium 5.4 mmol/L (3.5-5.1)
[2022-01-01] MEDS ORDERED: fentaNYL CITRATE 100 MCG/2 ML VL ONE (15:51)
[2022-01-01] MEDS ORDERED: MIDAZOLAM HCL 2MG/2ML 2ml VIAL (1mg/ml) ONE (15:51)
[2022-01-01] MEDS ORDERED: LIDOCAINE 2%HCL (LOCAL ANESTH.) INJ 10ml MDV ONE ×2 (15:52→16:49)
[2022-01-01] MEDS ORDERED: diphenhdrAMINE HCL 50 MG/1 ML VL ONE (16:35)
[2022-01-01] MEDS ORDERED: HEPARIN SODIUM (PORCINE) 5000 UNITS/ML 1ML VIAL ONE (16:52)
[2022-01-01] MEDS: CALCIUM ACETATE 667 MG CAP PO SCH (18:00)
[2022-01-01 19:56] LABS: Calcium 7.6 mg/dL (8.5-10.1)
[2022-01-01 20:11] LABS: BUN/Creatinine Ratio 12.3
[2022-01-02] VITALS (40 sets, daily range): BP systolic 124–193; BP diastolic 48–79
[2022-01-02 04:42] LABS: BUN/Creatinine Ratio 11.7; Calcium 7.6 mg/dL (8.5-10.1)
[2022-01-02 05:16] LABS: Potassium 5.6 mmol/L (3.5-5.1)
[2022-01-02 08:16] LABS: Potassium 5.5 mmol/L (3.5-5.1)
[2022-01-02 08:29] LABS: BUN/Creatinine Ratio 12.3; Calcium 7.5 mg/dL (8.5-10.1)
[2022-01-02] MEDS: CALCIUM ACETATE 667 MG CAP PO SCH ×4 (09:35→18:00)
[2022-01-02] MEDS ORDERED: SODIUM CHL 0.9% 1000 ML BAG XX ONE (11:15)
[2022-01-02] MEDS ORDERED: AML5T PO (11:45)
[2022-01-02 11:58] LABS: Hemoglobin 8.8 g/dL (12.2-16.2)
[2022-01-02 12:00] LABS: Hematocrit 29.8 % (36.0-46.0)
[2022-01-02] MEDS: BUMETANIDE INJECTION 12.5 MG in GIVE UN-DILUTED 0 ML IV SCH (14:43)
[2022-01-02] MEDS ORDERED: hydrALAZINE HCL 20 MG/ML VL IV PRN (17:30)
[2022-01-02] MEDS ORDERED: amLODIPine BESYLATE 5 MG TAB PO ONE (17:30)
[2022-01-02] MEDS ORDERED: FAMOTIDINE 20 MG TAB PO ONE (17:30)
[2022-01-02] MEDS: ONDANSETRON HCL 4 MG/2 ML VIAL IV PRN (18:30)
[2022-01-02] MEDS ORDERED: EPOETIN ALFA-EPBX 10,000 UNIT/1ML VIAL SC ONE (21:00)
[2022-01-03] MEDS: BUMETANIDE INJECTION 12.5 MG in GIVE UN-DILUTED 0 ML IV SCH (03:40)
[2022-01-03 05:00] VITALS: BP 131/64
[2022-01-03 06:07] LABS: Albumin 1.8 g/dL (3.4-5.0); Calcium 6.9 mg/dL (8.5-10.1); Potassium 4.7 mmol/L (3.5-5.1)
[2022-01-03 06:09] LABS: BUN/Creatinine Ratio 10.8
[2022-01-03 06:12] LABS: Bilirubin, Total 0.4 mg/dL (0.2-1.0); Phosphorus 5.2 mg/dL (2.5-4.90); Total Protein 5.1 g/dL (6.4-8.2)
[2022-01-03] MEDS: CALCIUM ACETATE 667 MG CAP PO SCH ×3 (08:00→18:00)
[2022-01-03 09:00] VITALS: BP 124/69
[2022-01-03] MEDS ORDERED: amLODIPine BESYLATE 5 MG TAB PO SCH (10:00)
[2022-01-03 12:16] LABS: Hepatitis C Antibody Negative (Negative)
[2022-01-03 13:00] VITALS: BP 131/76
[2022-01-03] MEDS: amLODIPine BESYLATE 5 MG TAB PO SCH (13:30)
[2022-01-03] MEDS: B-COMPLEX W/ C & FOLIC ACID(NEPHROVITE TAB) PO SCH (13:30)
[2022-01-03 16:48] VITALS: BP 120/70
[2022-01-03] MEDS: BUMETANIDE 1 MG TAB PO SCH (18:00)
[2022-01-03 20:29] VITALS: BP 121/62
[2022-01-03 23:10] VITALS: BP 142/74
[2022-01-04 05:10] VITALS: BP 114/63
[2022-01-04] MEDS: BUMETANIDE 1 MG TAB PO SCH ×2 (05:24→18:26)
[2022-01-04 05:25] VITALS: BP 114/63
[2022-01-04 05:42] LABS: Hematocrit 25.4 % (36.0-46.0); Hemoglobin 7.8 g/dL (12.2-16.2)
[2022-01-04] MEDS ORDERED: SODIUM CHL 0.9% 1000 ML BAG XX ONE (07:00)
[2022-01-04 08:41] VITALS: BP 133/68
[2022-01-04] MEDS: CALCIUM ACETATE 667 MG CAP PO SCH ×3 (09:15→18:27)
[2022-01-04] MEDS ORDERED: ALBUMIN 25% 100 ML IV ONE ×2 (09:30)
[2022-01-04 09:40] LABS: Hematocrit 24.6 % (36.0-46.0); Hemoglobin 7.5 g/dL (12.2-16.2); Mean Corpuscular Hemoglobin 23.8 pg (28.0-32.0); Mean Corpuscular Hgb Conc. 30.6 g/dL (32.0-36.0); Mean Corpuscular Volume 77.9 fL (80.0-100.0); Red Blood Cells 3.16 10^6/uL (4.0-5.20); Red Cell Distribution Width 18.4 % (11.8-14.3); White Blood Cell 9.2 10^3/uL (4.4-10.8)
[2022-01-04 09:46] LABS: Band Neutrophils % (manual) 0; Basophils % (manual) 0 (0.0-2.0); Blast Cells 0; Metamyelocytes % 0; Myelocytes % 0; Promyelocytes % 0; Reactive Lymphocytes 0
[2022-01-04 09:48] LABS: BUN/Creatinine Ratio 11.6; Calcium 7.1 mg/dL (8.5-10.1); Potassium 4.6 mmol/L (3.5-5.1)
[2022-01-04] MEDS: FAMOTIDINE 20 MG TAB PO SCH (10:00)
[2022-01-04] MEDS: amLODIPine BESYLATE 5 MG TAB PO SCH (10:00)
[2022-01-04] MEDS: B-COMPLEX W/ C & FOLIC ACID(NEPHROVITE TAB) PO SCH (10:00)
[2022-01-04] MEDS: CITALOPRAM HYDROBR 20 MG TAB PO SCH (10:00)
[2022-01-04 10:16] LABS: Eosinophils % (manual) 14 (0-7); Lymphocytes % (manual) 12 (10.0-50.0); Monocytes % (manual) 10 (0-12)
[2022-01-04 13:00] VITALS: BP 119/69
[2022-01-04 16:40] VITALS: BP 110/51
[2022-01-04] MEDS ORDERED: ALBUAER3 IN (17:36)
[2022-01-04] MEDS ORDERED: BUME1TAB3 PO (17:36)
[2022-01-04] MEDS ORDERED: CALC667C5 PO (17:36)
[2022-01-04] MEDS ORDERED: EPOETIN ALFA-EPBX 10,000 UNIT/1ML VIAL SC ONE (21:00)
[2022-01-04 22:14] VITALS: BP 145/89
[2022-01-05] MEDS: HYDROcodone-ACET 5/325MG TAB PO PRN (05:18)
[2022-01-05 05:42] VITALS: BP 148/77
[2022-01-05 06:07] LABS: Hematocrit 24.3 % (36.0-46.0); Hemoglobin 7.6 g/dL (12.2-16.2); Mean Corpuscular Hemoglobin 24.2 pg (28.0-32.0); Mean Corpuscular Hgb Conc. 31.2 g/dL (32.0-36.0); Mean Corpuscular Volume 77.5 fL (80.0-100.0); Red Blood Cells 3.13 10^6/uL (4.0-5.20); Red Cell Distribution Width 18.6 % (11.8-14.3); White Blood Cell 8.9 10^3/uL (4.4-10.8)
[2022-01-05] MEDS: BUMETANIDE 1 MG TAB PO SCH (06:17)
[2022-01-05 06:23] LABS: Band Neutrophils % (manual) 0; Basophils % (manual) 0 (0.0-2.0); Blast Cells 0; Metamyelocytes % 0; Myelocytes % 0; Promyelocytes % 0; Reactive Lymphocytes 0
[2022-01-05 06:40] LABS: Potassium 4.2 mmol/L (3.5-5.1)
[2022-01-05 06:43] LABS: BUN/Creatinine Ratio 10.6; Calcium 6.9 mg/dL (8.5-10.1)
[2022-01-05 07:51] LABS: Eosinophils % (manual) 17 (0-7); Lymphocytes % (manual) 22 (10.0-50.0); Monocytes % (manual) 8 (0-12)
[2022-01-05] MEDS: CALCIUM ACETATE 667 MG CAP PO SCH ×3 (08:10→18:27)
[2022-01-05 09:00] VITALS: BP 125/57
[2022-01-05] MEDS: B-COMPLEX W/ C & FOLIC ACID(NEPHROVITE TAB) PO SCH (10:02)
[2022-01-05] MEDS: CITALOPRAM HYDROBR 20 MG TAB PO SCH (10:02)
[2022-01-05] MEDS: amLODIPine BESYLATE 5 MG TAB PO SCH (10:03)
[2022-01-05] MEDS ORDERED: SODIUM CHL 0.9% 1000 ML BAG XX ONE (12:45)
[2022-01-05] MEDS: FUROSEMIDE 100 MG/10ML VIAL IV SCH ×2 (12:54→18:29)
[2022-01-05 13:00] VITALS: BP 141/74
[2022-01-05 17:01] VITALS: BP 148/77
[2022-01-05 20:00] VITALS: BP 148/77
[2022-01-05 22:00] VITALS: BP 143/60
[2022-01-06] MEDS: ONDANSETRON HCL 4 MG/2 ML VIAL IV PRN (01:35)
[2022-01-06 05:00] VITALS: BP 135/63
[2022-01-06 05:18] LABS: Hematocrit 25.4 % (36.0-46.0); Hemoglobin 7.9 g/dL (12.2-16.2); Mean Corpuscular Hemoglobin 24.1 pg (28.0-32.0); Mean Corpuscular Hgb Conc. 30.9 g/dL (32.0-36.0); Mean Corpuscular Volume 77.9 fL (80.0-100.0); Red Blood Cells 3.26 10^6/uL (4.0-5.20); Red Cell Distribution Width 18.8 % (11.8-14.3); White Blood Cell 9.6 10^3/uL (4.4-10.8)
[2022-01-06 05:20] LABS: Band Neutrophils % (manual) 0; Basophils % (manual) 0 (0.0-2.0); Blast Cells 0; Metamyelocytes % 0; Myelocytes % 0; Promyelocytes % 0; Reactive Lymphocytes 0
[2022-01-06 05:39] LABS: Calcium 7.2 mg/dL (8.5-10.1); Potassium 4.5 mmol/L (3.5-5.1)
[2022-01-06 05:40] LABS: BUN/Creatinine Ratio 10.8
[2022-01-06] MEDS: FUROSEMIDE 100 MG/10ML VIAL IV SCH ×2 (05:52→18:05)
[2022-01-06 06:25] LABS: Eosinophils % (manual) 27 (0-7); Lymphocytes % (manual) 8 (10.0-50.0); Monocytes % (manual) 7 (0-12)
[2022-01-06] MEDS: CALCIUM ACETATE 667 MG CAP PO SCH ×3 (08:09→18:05)
[2022-01-06 09:00] VITALS: BP 154/81
[2022-01-06] MEDS: B-COMPLEX W/ C & FOLIC ACID(NEPHROVITE TAB) PO SCH (09:32)
[2022-01-06] MEDS: CITALOPRAM HYDROBR 20 MG TAB PO SCH (09:32)
[2022-01-06] MEDS: FAMOTIDINE 20 MG TAB PO SCH (09:32)
[2022-01-06] MEDS: amLODIPine BESYLATE 5 MG TAB PO SCH (09:33)
[2022-01-06 12:00] VITALS: BP 146/76
[2022-01-06] MEDS ORDERED: IOHEXOL 350 MG/ML 100ML IJ ONE (14:04)
[2022-01-06 17:00] VITALS: BP 134/81
[2022-01-06 22:00] VITALS: BP 112/46
[2022-01-07] VITALS (9 sets, daily range): BP systolic 112–145; BP diastolic 59–83
[2022-01-07 05:43] LABS: Hematocrit 24.4 % (36.0-46.0); Hemoglobin 7.6 g/dL (12.2-16.2); Mean Corpuscular Hemoglobin 24.2 pg (28.0-32.0); Mean Corpuscular Hgb Conc. 31.1 g/dL (32.0-36.0); Mean Corpuscular Volume 77.8 fL (80.0-100.0); Red Blood Cells 3.14 10^6/uL (4.0-5.20); Red Cell Distribution Width 18.4 % (11.8-14.3); White Blood Cell 7.3 10^3/uL (4.4-10.8)
[2022-01-07 05:58] LABS: Band Neutrophils % (manual) 0; Basophils % (manual) 0 (0.0-2.0); Blast Cells 0; Metamyelocytes % 0; Myelocytes % 0; Promyelocytes % 0; Reactive Lymphocytes 0
[2022-01-07 06:00] LABS: BUN/Creatinine Ratio 9.8; Calcium 7.4 mg/dL (8.5-10.1); Potassium 4.1 mmol/L (3.5-5.1)
[2022-01-07] MEDS: FUROSEMIDE 100 MG/10ML VIAL IV SCH ×2 (06:25→16:33)
[2022-01-07 06:39] LABS: Eosinophils % (manual) 19 (0-7); Lymphocytes % (manual) 10 (10.0-50.0); Monocytes % (manual) 8 (0-12)
[2022-01-07] MEDS ORDERED: IOHEXOL 350 MG/ML 100ML IJ ONE (07:14)
[2022-01-07] MEDS: CITALOPRAM HYDROBR 20 MG TAB PO SCH (09:14)
[2022-01-07] MEDS: B-COMPLEX W/ C & FOLIC ACID(NEPHROVITE TAB) PO SCH (09:15)
[2022-01-07] MEDS: amLODIPine BESYLATE 5 MG TAB PO SCH (09:15)
[2022-01-07] MEDS: CALCIUM ACETATE 667 MG CAP PO SCH ×3 (09:16→16:35)
[2022-01-08 05:00] VITALS: BP 163/83
[2022-01-08] MEDS: FUROSEMIDE 100 MG/10ML VIAL IV SCH ×2 (05:41→18:00)
[2022-01-08 05:45] LABS: Hematocrit 25.7 % (36.0-46.0); Hemoglobin 8.1 g/dL (12.2-16.2); Mean Corpuscular Hemoglobin 24.6 pg (28.0-32.0); Mean Corpuscular Hgb Conc. 31.4 g/dL (32.0-36.0); Mean Corpuscular Volume 78.1 fL (80.0-100.0); Red Blood Cells 3.29 10^6/uL (4.0-5.20); Red Cell Distribution Width 19.1 % (11.8-14.3)
[2022-01-08 05:52] LABS: Band Neutrophils % (manual) 0; Basophils % (manual) 0 (0.0-2.0); Blast Cells 0; Metamyelocytes % 0; Myelocytes % 0; Promyelocytes % 0; Reactive Lymphocytes 0
[2022-01-08 06:04] LABS: Potassium 4.2 mmol/L (3.5-5.1)
[2022-01-08 06:14] LABS: BUN/Creatinine Ratio 9.5
[2022-01-08 06:15] LABS: Calcium 7.8 mg/dL (8.5-10.1)
[2022-01-08 06:29] VITALS: BP 155/76
[2022-01-08] MEDS ORDERED: SODIUM CHL 0.9% 1000 ML BAG XX ONE (07:00)
[2022-01-08 08:00] VITALS: BP 136/69
[2022-01-08] MEDS: CALCIUM ACETATE 667 MG CAP PO SCH ×3 (08:00→18:00)
[2022-01-08 08:46] LABS: Eosinophils % (manual) 19 (0-7); Lymphocytes % (manual) 10 (10.0-50.0); Monocytes % (manual) 10 (0-12)
[2022-01-08 09:02] VITALS: BP 136/69
[2022-01-08] MEDS: amLODIPine BESYLATE 5 MG TAB PO SCH (10:00)
[2022-01-08] MEDS: CITALOPRAM HYDROBR 20 MG TAB PO SCH (10:00)
[2022-01-08] MEDS: FAMOTIDINE 20 MG TAB PO SCH (10:00)
[2022-01-08] MEDS: B-COMPLEX W/ C & FOLIC ACID(NEPHROVITE TAB) PO SCH (10:00)
[2022-01-08 10:10] LABS: INR 1.17 (0.9-1.15)
[2022-01-08 13:07] VITALS: BP 166/77
[2022-01-08 17:00] VITALS: BP 136/70
[2022-01-08] MEDS ORDERED: EPOETIN ALFA-EPBX 10,000 UNIT/1ML VIAL SC ONE (21:00)
[2022-01-08] MEDS: HYDROcodone-ACET 5/325MG TAB PO PRN (21:10)
[2022-01-09 05:00] VITALS: BP 150/82
[2022-01-09] MEDS: FUROSEMIDE 100 MG/10ML VIAL IV SCH ×2 (05:16→17:09)
[2022-01-09 06:32] LABS: Basophils # (auto) 0.1 10 ^3/uL (0-0.2); Eosinophils # (auto) 1.2 10 ^3/uL (0-0.8); Hemoglobin 7.5 g/dL (12.2-16.2); Lymphocytes # (auto) 0.9 10 ^3/uL (0.4-5.4)
[2022-01-09 06:42] LABS: Basophils % (auto) 1.3 % (0.0-2.0); Eosinophils % (auto) 14.5 % (0.0-7.0); Hematocrit 24.3 % (36.0-46.0); Lymphocytes % (auto) 10.6 % (10.0-50.0); Mean Corpuscular Hgb Conc. 30.6 g/dL (32.0-36.0); Mean Corpuscular Volume 78.2 fL (80.0-100.0); Monocytes # (auto) 0.7 10 ^3/uL (0-1.3); Monocytes % (auto) 8.3 % (0.0-12.0); Neutrophils # (auto) 5.4 10 ^3/uL (1.6-8.6); Neutrophils % (auto) 65.3 % (37.0-80.0); Red Blood Cells 3.11 10^6/uL (4.0-5.20); Red Cell Distribution Width 19.5 % (11.8-14.3); White Blood Cell 8.3 10^3/uL (4.4-10.8)
[2022-01-09 06:57] LABS: BUN/Creatinine Ratio 6.4; Calcium 7.7 mg/dL (8.5-10.1); Potassium 3.9 mmol/L (3.5-5.1)
[2022-01-09 08:00] VITALS: BP 143/81
[2022-01-09] MEDS: CALCIUM ACETATE 667 MG CAP PO SCH ×3 (08:00→17:10)
[2022-01-09 09:00] VITALS: BP 143/81
[2022-01-09] MEDS: amLODIPine BESYLATE 5 MG TAB PO SCH (10:00)
[2022-01-09] MEDS: CITALOPRAM HYDROBR 20 MG TAB PO SCH (10:00)
[2022-01-09] MEDS ORDERED: SODIUM CHL 0.9% 1000 ML BAG XX ONE (10:00)
[2022-01-09] MEDS: B-COMPLEX W/ C & FOLIC ACID(NEPHROVITE TAB) PO SCH (10:00)
[2022-01-09 13:00] VITALS: BP 145/81
[2022-01-09 17:00] VITALS: BP 136/76
[2022-01-09] MEDS ORDERED: EPOETIN ALFA-EPBX 10,000 UNIT/1ML VIAL SC ONE (21:00)
[2022-01-09 22:00] VITALS: BP 154/84
[2022-01-10] MEDS: HYDROcodone-ACET 5/325MG TAB PO PRN (00:56)
[2022-01-10 05:00] VITALS: BP 135/68
[2022-01-10] MEDS: FUROSEMIDE 100 MG/10ML VIAL IV SCH ×2 (05:35→18:26)
[2022-01-10 06:24] LABS: Basophils # (auto) 0.1 10 ^3/uL (0-0.2); Eosinophils # (auto) 1.2 10 ^3/uL (0-0.8); Hemoglobin 7.4 g/dL (12.2-16.2); Monocytes # (auto) 0.7 10 ^3/uL (0-1.3)
[2022-01-10 06:26] LABS: Basophils % (auto) 1.3 % (0.0-2.0); Calcium 7.6 mg/dL (8.5-10.1); Eosinophils % (auto) 13.5 % (0.0-7.0); Hematocrit 23.9 % (36.0-46.0); Lymphocytes % (auto) 11.7 % (10.0-50.0); Mean Corpuscular Hemoglobin 24.2 pg (28.0-32.0); Mean Corpuscular Hgb Conc. 30.9 g/dL (32.0-36.0); Mean Corpuscular Volume 78.3 fL (80.0-100.0); Monocytes % (auto) 8.7 % (0.0-12.0); Neutrophils # (auto) 5.6 10 ^3/uL (1.6-8.6); Neutrophils % (auto) 64.8 % (37.0-80.0); Potassium 3.7 mmol/L (3.5-5.1); Red Blood Cells 3.05 10^6/uL (4.0-5.20); White Blood Cell 8.6 10^3/uL (4.4-10.8)
[2022-01-10 06:30] LABS: BUN/Creatinine Ratio 5.2
[2022-01-10] MEDS: CALCIUM ACETATE 667 MG CAP PO SCH ×3 (08:33→18:27)
[2022-01-10 09:00] VITALS: BP 153/76
[2022-01-10] MEDS: amLODIPine BESYLATE 5 MG TAB PO SCH (09:57)
[2022-01-10] MEDS: B-COMPLEX W/ C & FOLIC ACID(NEPHROVITE TAB) PO SCH (09:57)
[2022-01-10] MEDS: FAMOTIDINE 20 MG TAB PO SCH (09:58)
[2022-01-10] MEDS: Pro-Stat SF 30ml Vanilla PO SCH (09:59)
[2022-01-10] MEDS: CITALOPRAM HYDROBR 20 MG TAB PO SCH (10:03)
[2022-01-10 13:00] VITALS: BP 133/69
[2022-01-10 17:00] VITALS: BP 137/70
[2022-01-10 17:16] LABS: Basophils # (auto) 0.1 10 ^3/uL (0-0.2); Basophils % (auto) 0.7 % (0.0-2.0); Eosinophils # (auto) 0.8 10 ^3/uL (0-0.8); Eosinophils % (auto) 9.1 % (0.0-7.0); Hematocrit 26.7 % (36.0-46.0); Hemoglobin 8.1 g/dL (12.2-16.2); Lymphocytes # (auto) 0.6 10 ^3/uL (0.4-5.4); Lymphocytes % (auto) 6.7 % (10.0-50.0); Mean Corpuscular Hemoglobin 23.6 pg (28.0-32.0); Mean Corpuscular Hgb Conc. 30.2 g/dL (32.0-36.0); Monocytes # (auto) 0.6 10 ^3/uL (0-1.3); Monocytes % (auto) 6.8 % (0.0-12.0); Neutrophils # (auto) 7.1 10 ^3/uL (1.6-8.6); Neutrophils % (auto) 76.7 % (37.0-80.0); Nucleated Red Blood Cells % 0.1 %; Red Blood Cells 3.42 10^6/uL (4.0-5.20); Red Cell Distribution Width 19.3 % (11.8-14.3); White Blood Cell 9.3 10^3/uL (4.4-10.8)
[2022-01-10 17:17] LABS: Mean Corpuscular Volume 78.1 fL (80.0-100.0)
[2022-01-10 17:45] LABS: BUN/Creatinine Ratio 4.7; Calcium 7.9 mg/dL (8.5-10.1); Potassium 3.8 mmol/L (3.5-5.1)
[2022-01-10 22:00] VITALS: BP 147/78
[2022-01-11] VITALS (8 sets, daily range): BP systolic 137–158; BP diastolic 56–88
[2022-01-11 05:57] LABS: Basophils # (auto) 0.1 10 ^3/uL (0-0.2); Basophils % (auto) 0.8 % (0.0-2.0); Eosinophils # (auto) 0.9 10 ^3/uL (0-0.8); Eosinophils % (auto) 9.1 % (0.0-7.0); Hematocrit 25.4 % (36.0-46.0); Hemoglobin 7.8 g/dL (12.2-16.2); Lymphocytes % (auto) 10.4 % (10.0-50.0); Mean Corpuscular Hemoglobin 24.1 pg (28.0-32.0); Mean Corpuscular Hgb Conc. 30.8 g/dL (32.0-36.0); Mean Corpuscular Volume 78.4 fL (80.0-100.0); Monocytes # (auto) 0.7 10 ^3/uL (0-1.3); Monocytes % (auto) 7.2 % (0.0-12.0); Neutrophils % (auto) 72.5 % (37.0-80.0); Red Blood Cells 3.24 10^6/uL (4.0-5.20); Red Cell Distribution Width 19.8 % (11.8-14.3); White Blood Cell 9.6 10^3/uL (4.4-10.8)
[2022-01-11] MEDS: FUROSEMIDE 100 MG/10ML VIAL IV SCH ×2 (05:58→17:27)
[2022-01-11 06:21] LABS: Calcium 7.9 mg/dL (8.5-10.1); Magnesium 2.2 mg/dL (1.6-2.6); Potassium 3.8 mmol/L (3.5-5.1)
[2022-01-11 06:30] LABS: INR 1.21 (0.9-1.15); Partial Thromboplastin Time 30.7 sec (23.6-33.0)
[2022-01-11] MEDS ORDERED: SODIUM CHL 0.9% 1000 ML BAG XX ONE (07:00)
[2022-01-11] MEDS: CALCIUM ACETATE 667 MG CAP PO SCH ×3 (08:00→17:28)
[2022-01-11] MEDS: amLODIPine BESYLATE 5 MG TAB PO SCH (09:36)
[2022-01-11] MEDS: CITALOPRAM HYDROBR 20 MG TAB PO SCH (09:36)
[2022-01-11] MEDS: B-COMPLEX W/ C & FOLIC ACID(NEPHROVITE TAB) PO SCH (09:36)
[2022-01-11] MEDS: Pro-Stat SF 30ml Vanilla PO SCH (09:36)
[2022-01-11] MEDS: D5W 5% 1,000 ML IV SCH (12:47)
[2022-01-11] MEDS ORDERED: EPOETIN ALFA-EPBX 10,000 UNIT/1ML VIAL SC ONE (21:00)
[2022-01-12 05:00] VITALS: BP 143/64
[2022-01-12] MEDS: FUROSEMIDE 100 MG/10ML VIAL IV SCH ×2 (05:47→17:46)
[2022-01-12] MEDS: D5W 5% 1,000 ML IV SCH (05:48)
[2022-01-12 09:00] VITALS: BP 143/82
[2022-01-12] MEDS: B-COMPLEX W/ C & FOLIC ACID(NEPHROVITE TAB) PO SCH (09:48)
[2022-01-12] MEDS: CALCIUM ACETATE 667 MG CAP PO SCH ×3 (09:48→17:45)
[2022-01-12] MEDS: CITALOPRAM HYDROBR 20 MG TAB PO SCH (09:48)
[2022-01-12] MEDS: amLODIPine BESYLATE 5 MG TAB PO SCH (09:49)
[2022-01-12] MEDS: FAMOTIDINE 20 MG TAB PO SCH (09:49)
[2022-01-12] MEDS: Pro-Stat SF 30ml Vanilla PO SCH (09:50)
[2022-01-12 13:00] VITALS: BP 139/74
[2022-01-12] MEDS ORDERED: SODIUM CHL 0.9% 1000 ML BAG XX ONE (13:45)
[2022-01-12 16:49] LABS: Hematocrit 27.2 % (36.0-46.0); Hemoglobin 8.2 g/dL (12.2-16.2)
[2022-01-12 17:00] VITALS: BP 131/74
[2022-01-12] MEDS ORDERED: EPOETIN ALFA-EPBX 10,000 UNIT/1ML VIAL SC ONE (21:00)
[2022-01-12 22:00] VITALS: BP 134/71
[2022-01-13] VITALS (7 sets, daily range): BP systolic 137–146; BP diastolic 68–81
[2022-01-13] MEDS: D5W 5% 1,000 ML IV SCH (00:15)
[2022-01-13] MEDS: FUROSEMIDE 100 MG/10ML VIAL IV SCH ×2 (05:36→17:22)
[2022-01-13 06:43] LABS: Basophils # (auto) 0.1 10 ^3/uL (0-0.2); Eosinophils # (auto) 1.2 10 ^3/uL (0-0.8); Hemoglobin 8.5 g/dL (12.2-16.2); Lymphocytes # (auto) 1.2 10 ^3/uL (0.4-5.4); Monocytes # (auto) 0.7 10 ^3/uL (0-1.3); Neutrophils # (auto) 6.9 10 ^3/uL (1.6-8.6)
[2022-01-13 06:45] LABS: Basophils % (auto) 0.9 % (0.0-2.0); Eosinophils % (auto) 12.3 % (0.0-7.0); Hematocrit 27.4 % (36.0-46.0); Mean Corpuscular Hemoglobin 24.2 pg (28.0-32.0); Mean Corpuscular Hgb Conc. 31.2 g/dL (32.0-36.0); Mean Corpuscular Volume 77.7 fL (80.0-100.0); Monocytes % (auto) 6.8 % (0.0-12.0); Red Blood Cells 3.52 10^6/uL (4.0-5.20); Red Cell Distribution Width 19.4 % (11.8-14.3); White Blood Cell 10.1 10^3/uL (4.4-10.8)
[2022-01-13 06:59] LABS: Potassium 3.5 mmol/L (3.5-5.1)
[2022-01-13 07:12] LABS: Calcium 7.3 mg/dL (8.5-10.1)
[2022-01-13] MEDS: CALCIUM ACETATE 667 MG CAP PO SCH ×3 (12:26→17:22)
[2022-01-13] MEDS: CITALOPRAM HYDROBR 20 MG TAB PO SCH (12:27)
[2022-01-13] MEDS: B-COMPLEX W/ C & FOLIC ACID(NEPHROVITE TAB) PO SCH (12:27)
[2022-01-13] MEDS: amLODIPine BESYLATE 5 MG TAB PO SCH (12:28)
[2022-01-13] MEDS: Pro-Stat SF 30ml Vanilla PO SCH (12:28)
[2022-01-13] MEDS: HYDROcodone-ACET 5/325MG TAB PO PRN (18:12)
[2022-01-14 05:00] VITALS: BP 125/64
[2022-01-14 06:12] VITALS: BP 125/64
[2022-01-14] MEDS: FUROSEMIDE 100 MG/10ML VIAL IV SCH ×3 (06:54→17:44)
[2022-01-14 08:47] VITALS: BP 126/63
[2022-01-14] MEDS: B-COMPLEX W/ C & FOLIC ACID(NEPHROVITE TAB) PO SCH (10:03)
[2022-01-14] MEDS: CALCIUM ACETATE 667 MG CAP PO SCH ×3 (10:03→17:44)
[2022-01-14] MEDS: CITALOPRAM HYDROBR 20 MG TAB PO SCH (10:03)
[2022-01-14] MEDS: Pro-Stat SF 30ml Vanilla PO SCH (10:04)
[2022-01-14] MEDS: amLODIPine BESYLATE 5 MG TAB PO SCH (10:04)
[2022-01-14] MEDS: FAMOTIDINE 20 MG TAB PO SCH (10:04)
[2022-01-14 11:34] LABS: Basophils # (auto) 0.1 10 ^3/uL (0-0.2); Eosinophils # (auto) 1.4 10 ^3/uL (0-0.8); Hemoglobin 8.3 g/dL (12.2-16.2); Monocytes # (auto) 0.6 10 ^3/uL (0-1.3)
[2022-01-14 11:36] LABS: Basophils % (auto) 0.8 % (0.0-2.0); Eosinophils % (auto) 13.9 % (0.0-7.0); Hematocrit 27.4 % (36.0-46.0); Mean Corpuscular Hemoglobin 23.6 pg (28.0-32.0); Mean Corpuscular Hgb Conc. 30.2 g/dL (32.0-36.0); Mean Corpuscular Volume 78.3 fL (80.0-100.0); Monocytes % (auto) 5.8 % (0.0-12.0); Neutrophils % (auto) 69.5 % (37.0-80.0); Red Cell Distribution Width 19.6 % (11.8-14.3); White Blood Cell 10.1 10^3/uL (4.4-10.8)
[2022-01-14] MEDS: ERGOCALCIFEROL 50,000 UNIT(1.25MG) CAP PO SCH (12:16)
[2022-01-14 12:40] VITALS: BP 139/73
[2022-01-14 17:03] VITALS: BP 136/79
[2022-01-14 22:00] VITALS: BP 146/79
[2022-01-15 05:00] VITALS: BP 129/70
[2022-01-15] MEDS: FUROSEMIDE 100 MG/10ML VIAL IV SCH (06:53)
[2022-01-15] MEDS ORDERED: SODIUM CHL 0.9% 1000 ML BAG XX ONE (07:00)
[2022-01-15 08:00] VITALS: BP 147/74
[2022-01-15] MEDS: CITALOPRAM HYDROBR 20 MG TAB PO SCH (09:13)
[2022-01-15] MEDS: CALCIUM ACETATE 667 MG CAP PO SCH ×3 (09:13→17:58)
[2022-01-15] MEDS: Pro-Stat SF 30ml Vanilla PO SCH (09:14)
[2022-01-15] MEDS: B-COMPLEX W/ C & FOLIC ACID(NEPHROVITE TAB) PO SCH (09:14)
[2022-01-15 12:00] VITALS: BP 146/79
[2022-01-15] MEDS: POTASSIUM CHL 20MEQ/100ML 100 ML IV SCH ×2 (12:30→17:58)
[2022-01-15] MEDS: BUMETANIDE INJECTION 25 MG in GIVE UN-DILUTED 0 ML IV SCH (12:30)
[2022-01-15 16:00] VITALS: BP 160/80
[2022-01-15] MEDS ORDERED: ALBUMIN 25% 50 ML IV SCH (19:00)
[2022-01-15] MEDS: ALBUMIN 25% 100 ML IV SCH ×2 (20:00→21:20)
[2022-01-15] MEDS ORDERED: EPOETIN ALFA-EPBX 10,000 UNIT/1ML VIAL SC ONE (21:00)
[2022-01-15 22:00] VITALS: BP 132/69
[2022-01-15] MEDS: HYDROcodone-ACET 5/325MG TAB PO PRN (22:19)
[2022-01-16 05:00] VITALS: BP 148/73
[2022-01-16 09:00] VITALS: BP 154/71
[2022-01-16] MEDS: B-COMPLEX W/ C & FOLIC ACID(NEPHROVITE TAB) PO SCH (09:28)
[2022-01-16] MEDS: CITALOPRAM HYDROBR 20 MG TAB PO SCH (09:28)
[2022-01-16] MEDS: CALCIUM ACETATE 667 MG CAP PO SCH ×3 (09:28→17:44)
[2022-01-16] MEDS: FAMOTIDINE 20 MG TAB PO SCH (09:29)
[2022-01-16] MEDS: Pro-Stat SF 30ml Vanilla PO SCH (09:29)
[2022-01-16 10:24] LABS: Basophils # (auto) 0.1 10 ^3/uL (0-0.2); Hemoglobin 8.4 g/dL (12.2-16.2); Monocytes # (auto) 0.8 10 ^3/uL (0-1.3)
[2022-01-16 10:26] LABS: Basophils % (auto) 1.1 % (0.0-2.0); Eosinophils # (auto) 1.6 10 ^3/uL (0-0.8); Eosinophils % (auto) 13.9 % (0.0-7.0); Hematocrit 28.1 % (36.0-46.0); Lymphocytes # (auto) 1.4 10 ^3/uL (0.4-5.4); Lymphocytes % (auto) 11.9 % (10.0-50.0); Mean Corpuscular Hemoglobin 23.6 pg (28.0-32.0); Mean Corpuscular Hgb Conc. 30.1 g/dL (32.0-36.0); Mean Corpuscular Volume 78.4 fL (80.0-100.0); Monocytes % (auto) 6.7 % (0.0-12.0); Neutrophils # (auto) 7.6 10 ^3/uL (1.6-8.6); Neutrophils % (auto) 66.4 % (37.0-80.0); Red Blood Cells 3.58 10^6/uL (4.0-5.20); White Blood Cell 11.5 10^3/uL (4.4-10.8)
[2022-01-16 10:34] LABS: BUN/Creatinine Ratio 5.4; Potassium 3.7 mmol/L (3.5-5.1)
[2022-01-16 13:00] VITALS: BP 156/76
[2022-01-16] MEDS: BUMETANIDE INJECTION 25 MG in GIVE UN-DILUTED 0 ML IV SCH (13:36)
[2022-01-16] MEDS: HYDROcodone-ACET 5/325MG TAB PO PRN (16:46)
[2022-01-16 17:00] VITALS: BP 145/79
[2022-01-16 20:00] VITALS: BP 142/74
[2022-01-16 22:00] VITALS: BP 142/74
[2022-01-17 05:00] VITALS: BP 163/83
[2022-01-17] MEDS ORDERED: SODIUM CHL 0.9% 1000 ML BAG XX ONE (07:00)
[2022-01-17 09:00] VITALS: BP 156/81
[2022-01-17] MEDS: CITALOPRAM HYDROBR 20 MG TAB PO SCH (09:36)
[2022-01-17] MEDS: B-COMPLEX W/ C & FOLIC ACID(NEPHROVITE TAB) PO SCH (09:36)
[2022-01-17] MEDS: CALCIUM ACETATE 667 MG CAP PO SCH ×3 (09:36→18:32)
[2022-01-17] MEDS: Pro-Stat SF 30ml Vanilla PO SCH (10:36)
[2022-01-17 13:00] VITALS: BP 163/83
[2022-01-17 17:00] VITALS: BP 169/93
[2022-01-17 18:00] VITALS: BP 149/88
[2022-01-17] MEDS: FUROSEMIDE 40 MG TAB PO SCH (18:32)
[2022-01-17] MEDS ORDERED: EPOETIN ALFA-EPBX 10,000 UNIT/1ML VIAL SC ONE (21:00)
[2022-01-17 22:00] VITALS: BP 132/74
[2022-01-18 04:41] VITALS: BP 149/76
[2022-01-18] MEDS: FUROSEMIDE 40 MG TAB PO SCH (05:28)
[2022-01-18 08:30] VITALS: BP 155/70
[2022-01-18] MEDS: Pro-Stat SF 30ml Vanilla PO SCH (10:00)
[2022-01-18] MEDS: CALCIUM ACETATE 667 MG CAP PO SCH ×3 (10:39→18:18)
[2022-01-18] MEDS: B-COMPLEX W/ C & FOLIC ACID(NEPHROVITE TAB) PO SCH (10:39)
[2022-01-18] MEDS: FAMOTIDINE 20 MG TAB PO SCH (10:40)
[2022-01-18] MEDS: CITALOPRAM HYDROBR 20 MG TAB PO SCH (10:40)
[2022-01-18 12:26] VITALS: BP 128/68
[2022-01-18 17:05] VITALS: BP 147/71
[2022-01-18] MEDS ORDERED: AMOX500T86 PO (19:00)
[2022-01-18 22:27] VITALS: BP 144/75
[2022-01-19 05:27] VITALS: BP 139/72
[2022-01-19] MEDS: CALCIUM ACETATE 667 MG CAP PO SCH ×3 (08:50→17:56)
[2022-01-19 09:00] VITALS: BP 107/56
[2022-01-19] MEDS: Pro-Stat SF 30ml Vanilla PO SCH (10:00)
[2022-01-19] MEDS: CITALOPRAM HYDROBR 20 MG TAB PO SCH (10:56)
[2022-01-19] MEDS: B-COMPLEX W/ C & FOLIC ACID(NEPHROVITE TAB) PO SCH (10:56)
[2022-01-19 13:00] VITALS: BP 141/76
[2022-01-19 17:00] VITALS: BP 144/72
[2022-01-19 22:00] VITALS: BP 142/76
[2022-01-20 01:33] VITALS: BP 142/76
[2022-01-20 05:00] VITALS: BP 148/82
[2022-01-20] MEDS: FAMOTIDINE 20 MG TAB PO SCH (08:18)
[2022-01-20] MEDS: B-COMPLEX W/ C & FOLIC ACID(NEPHROVITE TAB) PO SCH (08:18)
[2022-01-20] MEDS: Pro-Stat SF 30ml Vanilla PO SCH (08:19)
[2022-01-20] MEDS: CITALOPRAM HYDROBR 20 MG TAB PO SCH (08:19)
[2022-01-20] MEDS: CALCIUM ACETATE 667 MG CAP PO SCH ×3 (08:22→19:00)
[2022-01-20 08:46] VITALS: BP 154/84
[2022-01-20] MEDS ORDERED: HEPARIN 1,000 UNITS/ml 1ML VIAL IV ONE (10:30)
[2022-01-20] MEDS ORDERED: ALBUMIN 25% 100 ML IV ONE (10:30)
[2022-01-20] MEDS ORDERED: ALBUMIN 25% 100 ML IV SCH (10:30)
[2022-01-20] MEDS: ALBUMIN 25% 100 ML IV SCH ×2 (10:30→11:30)
[2022-01-20 13:05] VITALS: BP 142/64
[2022-01-20 17:20] VITALS: BP 114/65
[2022-01-20 22:00] VITALS: BP 148/70
[2022-01-21 04:53] VITALS: BP 127/67
[2022-01-21 05:47] LABS: Hematocrit 28.5 % (36.0-46.0); Hemoglobin 8.8 g/dL (12.2-16.2); Mean Corpuscular Hemoglobin 23.9 pg (28.0-32.0)
[2022-01-21 05:49] LABS: Mean Corpuscular Hgb Conc. 30.9 g/dL (32.0-36.0); Mean Corpuscular Volume 77.6 fL (80.0-100.0); Red Blood Cells 3.68 10^6/uL (4.0-5.20)
[2022-01-21 06:07] LABS: Red Cell Distribution Width 20.1 % (11.8-14.3)
[2022-01-21 06:09] LABS: Band Neutrophils % (manual) 0; Basophils % (manual) 0 (0.0-2.0); Blast Cells 0; Metamyelocytes % 0; Myelocytes % 0; Promyelocytes % 0; Reactive Lymphocytes 0
[2022-01-21 07:58] LABS: Eosinophils % (manual) 13 (0-7); Lymphocytes % (manual) 22 (10.0-50.0); Monocytes % (manual) 4 (0-12)
[2022-01-21 09:00] VITALS: BP 142/78
[2022-01-21 09:41] VITALS: BP 142/78
[2022-01-21 10:16] VITALS: BP 138/85
[2022-01-21] MEDS: CALCIUM ACETATE 667 MG CAP PO SCH ×2 (10:29→12:00)
[2022-01-21] MEDS: Pro-Stat SF 30ml Vanilla PO SCH (10:30)
[2022-01-21] MEDS: ERGOCALCIFEROL 50,000 UNIT(1.25MG) CAP PO SCH (10:30)
[2022-01-21] MEDS: B-COMPLEX W/ C & FOLIC ACID(NEPHROVITE TAB) PO SCH (10:30)
[2022-01-21] MEDS: CITALOPRAM HYDROBR 20 MG TAB PO SCH (10:30)
[2022-01-21 13:38] VITALS: BP 153/80
== END 2022-01-21 16:35 | disposition home health service (06) | DRG 190 ==
LOC: ER 09:20 → TELE 13:49 → ICU WEST 17:23 → TELE-EAST 01-02 19:02
PROVIDERS: ADMIT Internal Medicine; ATTEND Internal Medicine
PROC: 0JH63XZ Insertion of Tunneled Vascular Access Device into Chest Subcutaneous Tissue and Fascia, Percutaneous Approach (ICD-10-PCS; 2022-01-01)
PROC: 02HV33Z Insertion of Infusion Device into Superior Vena Cava, Percutaneous Approach (ICD-10-PCS; 2022-01-01)
PROC: B5181ZA Fluoroscopy of Superior Vena Cava using Low Osmolar Contrast, Guidance (ICD-10-PCS; 2022-01-01)
PROC: B548ZZA Ultrasonography of Superior Vena Cava, Guidance (ICD-10-PCS; 2022-01-01)
PROC: 5A1D70Z Performance of Urinary Filtration, Intermittent, Less than 6 Hours Per Day (ICD-10-PCS; 2022-01-02)
PROC: 5A1D70Z Performance of Urinary Filtration, Intermittent, Less than 6 Hours Per Day (ICD-10-PCS; 2022-01-04)
PROC: 5A1D70Z Performance of Urinary Filtration, Intermittent, Less than 6 Hours Per Day (ICD-10-PCS; 2022-01-06)
PROC: 5A1D70Z Performance of Urinary Filtration, Intermittent, Less than 6 Hours Per Day (ICD-10-PCS; 2022-01-08)
PROC: 5A1D70Z Performance of Urinary Filtration, Intermittent, Less than 6 Hours Per Day (ICD-10-PCS; 2022-01-09)
PROC: 0W9B3ZZ Drainage of Left Pleural Cavity, Percutaneous Approach (ICD-10-PCS; principal; 2022-01-10)
PROC: 5A09357 Assistance with Respiratory Ventilation, Less than 24 Consecutive Hours, Continuous Positive Airway Pressure (ICD-10-PCS; 2022-01-10)
PROC: 0W993ZZ Drainage of Right Pleural Cavity, Percutaneous Approach (ICD-10-PCS; 2022-01-11)
PROC: 5A1D70Z Performance of Urinary Filtration, Intermittent, Less than 6 Hours Per Day (ICD-10-PCS; 2022-01-11)
PROC: 5A1D70Z Performance of Urinary Filtration, Intermittent, Less than 6 Hours Per Day (ICD-10-PCS; 2022-01-12)
PROC: 5A09357 Assistance with Respiratory Ventilation, Less than 24 Consecutive Hours, Continuous Positive Airway Pressure (ICD-10-PCS; 2022-01-14)
PROC: 5A1D70Z Performance of Urinary Filtration, Intermittent, Less than 6 Hours Per Day (ICD-10-PCS; 2022-01-15)
PROC: 5A1D70Z Performance of Urinary Filtration, Intermittent, Less than 6 Hours Per Day (ICD-10-PCS; 2022-01-17)
PROC: 5A1D70Z Performance of Urinary Filtration, Intermittent, Less than 6 Hours Per Day (ICD-10-PCS; 2022-01-20)
DX: I21.4 Non-ST elevation (NSTEMI) myocardial infarction (principal); J96.21 Acute and chronic respiratory failure with hypoxia; N17.0 Acute kidney failure with tubular necrosis; I50.33 Acute on chronic diastolic (congestive) heart failure; J91.8 Pleural effusion in other conditions classified elsewhere; D63.1 Anemia in chronic kidney disease; E11.649 Type 2 diabetes mellitus with hypoglycemia without coma; N18.6 End stage renal disease; E11.22 Type 2 diabetes mellitus with diabetic chronic kidney disease; E87.5 Hyperkalemia; E66.9 Obesity, unspecified; F32.9 Major depressive disorder, single episode, unspecified; J98.11 Atelectasis; D50.9 Iron deficiency anemia, unspecified; F41.9 Anxiety disorder, unspecified; E55.9 Vitamin D deficiency, unspecified; R53.81 Other malaise; Z68.35 Body mass index [BMI] 35.0-35.9, adult
CPT/HCPCS: 36415; 36600; 71045; 71275; 76604; 76775; 76942; 80048; 80053; 81001; 82010; 82306; 82570; 82805; 82962; 83615; 83735; 83880; 83970; 83986; 84100; 84132; 84156; 84300; 84484; 85007; 85014; 85018; 85025; 85027; 85610; 85730; 86803; 87070; 87081; 87086; 87205; 87340; 89051; 90935; 93005; 93306; 93970; 94640; 94660; 96365; 96367; 96368; 96375; 97110; 97116; 97163; 97530; 99152; 99153; 99291; G0378; J1642; J1815; J2001; J2250; J2405; J3480; J7042; P9047

== ENCOUNTER 2022-02-12 14:24 | Inpatient (IN) | payer MEDICAID ==
[~2022-02-12] VITALS: Ht 162.6 cm; Wt 70.4 kg
[~2022-02-12 14:24] MED LIST changes: +ALBUAER3 IN; +AMOX500T86 PO; +BUME1TAB3 PO; +CALC667C5 PO; -FURO1TAB33 PO; -GABA300C10 PO; -HYDR25TA87 PO; -MET25T PO; -METF-370 PO
[2022-02-12 15:19] LABS: Albumin 2.3 g/dL (3.4-5.0); BUN/Creatinine Ratio 12.9; Calcium 8.2 mg/dL (8.5-10.1); Hematocrit 26.1 % (36.0-46.0); Hemoglobin 8.2 g/dL (12.2-16.2); Mean Corpuscular Hemoglobin 27.2 pg (28.0-32.0); Mean Corpuscular Hgb Conc. 31.4 g/dL (32.0-36.0); Mean Corpuscular Volume 86.6 fL (80.0-100.0); Red Blood Cells 3.01 10^6/uL (4.0-5.20); Red Cell Distribution Width 25.7 % (11.8-14.3); White Blood Cell 15.3 10^3/uL (4.4-10.8)
[2022-02-12 15:25] LABS: Band Neutrophils % (manual) 0; Basophils % (manual) 0 (0.0-2.0); Blast Cells 0; Metamyelocytes % 0; Myelocytes % 0; Promyelocytes % 0
[2022-02-12 15:29] LABS: Bilirubin, Total 0.6 mg/dL (0.2-1.0); Total Protein 6.1 g/dL (6.4-8.2)
[2022-02-12 15:58] LABS: Eosinophils % (manual) 34 (0-7); Lymphocytes % (manual) 13 (10.0-50.0); Monocytes % (manual) 8 (0-12); Reactive Lymphocytes 2
[2022-02-12] MEDS ORDERED: hydrALAZINE HCL 20 MG/ML VL IV PRN (17:00)
[2022-02-12] MEDS ORDERED: ONDANSETRON HCL 4 MG/2 ML VIAL IV PRN (17:00)
[2022-02-12] MEDS ORDERED: AZITHROMYCIN 500MG/ 250ML 250 ML IV SCH (17:00)
[2022-02-12] MEDS ORDERED: cefTRIAXone 1GM/50ML D5W 50 ML IV SCH (17:00)
[2022-02-12] MEDS ORDERED: IOHEXOL 350 MG/ML 100ML IJ ONE (17:07)
[2022-02-12] MEDS ORDERED: LORA0.5T20 PO (17:13)
[2022-02-12] MEDS ORDERED: NITROGLYCERIN 0.4 MG SL TAB SL PRN (19:30)
[2022-02-12] MEDS ORDERED: DOCUSATE SOD 100 MG CAP PO PRN (19:30)
[2022-02-12] MEDS ORDERED: DEXTROSE (50%) 50ML SYRG IV PRN (19:30)
[2022-02-12] MEDS ORDERED: MORPHINE SULFATE INJECTION 2 MG/ML SYRG IV PRN (19:30)
[2022-02-12] MEDS ORDERED: ALBUTEROL SULF 2.5 MG/0.5ML(0.5%) NEB SOLN NEB PRN (19:30)
[2022-02-12 19:40] VITALS: BP 190/96
[2022-02-12 22:00] VITALS: BP 120/61
[2022-02-12] MEDS ORDERED: InsuLIN REG 1unit/0.01ml Soln (100units/ml) SC SCH (22:00)
[2022-02-12] MEDS: ACCU-CHEK COMFORT CURVE STRIP VI SCH (22:33)
[2022-02-12] MEDS: metroNIDAZOLE 500MG/100ML 100 ML IV SCH (22:33)
[2022-02-12] MEDS: POTASSIUM CHL 10 Meq TABLET PO SCH (22:33)
[2022-02-13] MEDS: metroNIDAZOLE 500MG/100ML 100 ML IV SCH ×2 (01:07→12:49)
[2022-02-13 04:45] VITALS: BP 147/77
[2022-02-13 05:47] LABS: Basophils # (auto) 0.2 10 ^3/uL (0-0.2); Hemoglobin 7.6 g/dL (12.2-16.2); Mean Corpuscular Volume 86.4 fL (80.0-100.0)
[2022-02-13 05:51] LABS: Basophils % (auto) 0.7 % (0.0-2.0); Eosinophils # (auto) 15.2 10 ^3/uL (0-0.8); Hematocrit 23.3 % (36.0-46.0); Lymphocytes # (auto) 2.6 10 ^3/uL (0.4-5.4); Lymphocytes % (auto) 9.6 % (10.0-50.0); Mean Corpuscular Hemoglobin 28.1 pg (28.0-32.0); Mean Corpuscular Hgb Conc. 32.6 g/dL (32.0-36.0); Monocytes # (auto) 0.6 10 ^3/uL (0-1.3); Monocytes % (auto) 2.3 % (0.0-12.0); Neutrophils # (auto) 8.1 10 ^3/uL (1.6-8.6); Neutrophils % (auto) 30.3 % (37.0-80.0); White Blood Cell 26.7 10^3/uL (4.4-10.8)
[2022-02-13] MEDS: ACCU-CHEK COMFORT CURVE STRIP VI SCH ×5 (06:03→20:47)
[2022-02-13] MEDS: BUMETANIDE 1 MG TAB PO SCH ×2 (06:06→18:27)
[2022-02-13 06:21] LABS: BUN/Creatinine Ratio 13.6; Calcium 7.9 mg/dL (8.5-10.1); Potassium 4.5 mmol/L (3.5-5.1)
[2022-02-13 06:23] LABS: Eosinophils % (auto) 57.1 % (0.0-7.0); Red Cell Distribution Width 25.8 % (11.8-14.3)
[2022-02-13] MEDS: InsuLIN REG 1unit/0.01ml Soln (100units/ml) SC SCH ×4 (06:28→20:47)
[2022-02-13] MEDS ORDERED: DEXTROSE (50%) 50ML SYRG IV PRN (06:30)
[2022-02-13] MEDS ORDERED: InsuLIN REG 1unit/0.01ml Soln (100units/ml) SC SCH (07:00)
[2022-02-13 09:00] VITALS: BP 129/65
[2022-02-13] MEDS: ASPirin 81 mg TAB PO SCH (09:01)
[2022-02-13] MEDS: CITALOPRAM HYDROBR 20 MG TAB PO SCH (09:01)
[2022-02-13] MEDS: LORazepam 0.5 MG TAB PO SCH (09:01)
[2022-02-13] MEDS: POTASSIUM CHL 10 Meq TABLET PO SCH ×2 (09:02→20:46)
[2022-02-13] MEDS ORDERED: ALBUMIN 25% 100 ML IV ONE (09:30)
[2022-02-13] MEDS ORDERED: SODIUM CHL 0.9% 1000 ML BAG XX ONE ×2 (09:30→12:00)
[2022-02-13] MEDS: amLODIPine BESYLATE 5 MG TAB PO SCH (10:00)
[2022-02-13] MEDS: LISINOPRIL 20 MG TAB PO SCH (10:00)
[2022-02-13] MEDS ORDERED: VANCOMYCIN PER PHARMACY 0 MG IV SCH (12:15)
[2022-02-13] MEDS: PIPERACILLIN-TAZOB 2.25GM 50 ML IV SCH ×2 (12:49→18:23)
[2022-02-13] MEDS ORDERED: VANCOMYCIN 1GM/250ML 250 ML IV ONE (13:00)
[2022-02-13 13:12] VITALS: BP 125/69
[2022-02-13 17:00] VITALS: BP 127/69
[2022-02-13] MEDS ORDERED: PIPERACILLIN-TAZOB 0.75 GM in D5W 5% 50 ML IV SCH (17:00)
[2022-02-13] MEDS ORDERED: EPOETIN ALFA-EPBX 10,000 UNIT/1ML VIAL SC ONE ×2 (21:00)
[2022-02-13 21:58] VITALS: BP 139/74
[2022-02-14] MEDS: PIPERACILLIN-TAZOB 2.25GM 50 ML IV SCH ×3 (01:26→17:32)
[2022-02-14 05:06] VITALS: BP 142/77
[2022-02-14 05:10] LABS: Hematocrit 23.1 % (36.0-46.0); Hemoglobin 7.6 g/dL (12.2-16.2); Mean Corpuscular Hemoglobin 28.7 pg (28.0-32.0); Mean Corpuscular Hgb Conc. 32.7 g/dL (32.0-36.0); Mean Corpuscular Volume 87.9 fL (80.0-100.0); Red Blood Cells 2.63 10^6/uL (4.0-5.20)
[2022-02-14] MEDS: BUMETANIDE 1 MG TAB PO SCH ×2 (05:13→17:33)
[2022-02-14] MEDS: ACCU-CHEK COMFORT CURVE STRIP VI SCH ×4 (05:13→23:36)
[2022-02-14] MEDS: InsuLIN REG 1unit/0.01ml Soln (100units/ml) SC SCH ×4 (05:21→22:00)
[2022-02-14 05:39] LABS: White Blood Cell 30.1 10^3/uL (4.4-10.8)
[2022-02-14 05:40] LABS: Band Neutrophils % (manual) 0; Basophils % (manual) 0 (0.0-2.0); Blast Cells 0; Metamyelocytes % 0; Myelocytes % 0; Promyelocytes % 0; Reactive Lymphocytes 0
[2022-02-14 05:49] LABS: BUN/Creatinine Ratio 8.2; Calcium 7.7 mg/dL (8.5-10.1)
[2022-02-14 07:42] LABS: Eosinophils % (manual) 58 (0-7); Lymphocytes % (manual) 12 (10.0-50.0); Monocytes % (manual) 4 (0-12)
[2022-02-14 08:00] VITALS: BP 144/73
[2022-02-14] MEDS: POTASSIUM CHL 10 Meq TABLET PO SCH ×2 (10:06→23:35)
[2022-02-14] MEDS: ASPirin 81 mg TAB PO SCH (10:06)
[2022-02-14] MEDS: LORazepam 0.5 MG TAB PO SCH (10:06)
[2022-02-14] MEDS: amLODIPine BESYLATE 5 MG TAB PO SCH (10:06)
[2022-02-14] MEDS: CITALOPRAM HYDROBR 20 MG TAB PO SCH (10:06)
[2022-02-14] MEDS: LISINOPRIL 20 MG TAB PO SCH (10:07)
[2022-02-14 13:00] VITALS: BP 118/53
[2022-02-14 17:07] VITALS: BP 121/58
[2022-02-14 22:00] VITALS: BP 132/79
[2022-02-15] MEDS: ACETAMINOPHEN 325 MG TAB PO PRN ×2 (03:22→15:58)
[2022-02-15 05:00] VITALS: BP 128/71
[2022-02-15] MEDS: PIPERACILLIN-TAZOB 2.25GM 50 ML IV SCH (05:40)
[2022-02-15] MEDS: BUMETANIDE 1 MG TAB PO SCH ×2 (05:51→18:26)
[2022-02-15] MEDS: InsuLIN REG 1unit/0.01ml Soln (100units/ml) SC SCH ×4 (05:52→22:00)
[2022-02-15] MEDS: ACCU-CHEK COMFORT CURVE STRIP VI SCH ×4 (05:52→22:33)
[2022-02-15] MEDS ORDERED: SODIUM CHL 0.9% 1000 ML BAG XX ONE (07:00)
[2022-02-15 07:26] LABS: Hematocrit 23.4 % (36.0-46.0); Hemoglobin 8.1 g/dL (12.2-16.2); Mean Corpuscular Hemoglobin 30.2 pg (28.0-32.0); Mean Corpuscular Hgb Conc. 34.7 g/dL (32.0-36.0); Mean Corpuscular Volume 87.1 fL (80.0-100.0); Red Blood Cells 2.69 10^6/uL (4.0-5.20)
[2022-02-15 07:37] LABS: White Blood Cell 34.2 10^3/uL (4.4-10.8)
[2022-02-15 07:38] LABS: Band Neutrophils % (manual) 0; Basophils % (manual) 0 (0.0-2.0); Blast Cells 0; Metamyelocytes % 0; Myelocytes % 0; Promyelocytes % 0; Reactive Lymphocytes 0
[2022-02-15 07:56] LABS: BUN/Creatinine Ratio 7.6; Calcium 8.4 mg/dL (8.5-10.1)
[2022-02-15 08:02] LABS: Potassium 5.6 mmol/L (3.5-5.1)
[2022-02-15 08:17] LABS: Eosinophils % (manual) 71 (0-7); Lymphocytes % (manual) 9 (10.0-50.0); Monocytes % (manual) 2 (0-12)
[2022-02-15 09:00] VITALS: BP 109/62
[2022-02-15] MEDS ORDERED: LOPERAMIDE HCL 2 MG CAP/TAB PO PRN (09:15)
[2022-02-15] MEDS: LORazepam 0.5 MG TAB PO SCH (10:00)
[2022-02-15] MEDS: POTASSIUM CHL 10 Meq TABLET PO SCH (10:00)
[2022-02-15] MEDS ORDERED: LISINOPRIL 20 MG TAB PO SCH (10:00)
[2022-02-15] MEDS: amLODIPine BESYLATE 5 MG TAB PO SCH (10:00)
[2022-02-15] MEDS: ASPirin 81 mg TAB PO SCH (10:00)
[2022-02-15] MEDS: CITALOPRAM HYDROBR 20 MG TAB PO SCH (10:00)
[2022-02-15] MEDS ORDERED: ALBUMIN 25% 100 ML IV PRN (11:30)
[2022-02-15 13:00] VITALS: BP 112/64
[2022-02-15] MEDS: MEROPENEM 500MG IVPB 50 ML IV SCH (15:57)
[2022-02-15] MEDS ORDERED: VANCOMYCIN 1GM/250ML 250 ML IV ONE (16:00)
[2022-02-15 17:00] VITALS: BP 143/81
[2022-02-15 19:45] VITALS: BP 143/81
[2022-02-15 20:41] LABS: BUN/Creatinine Ratio 5.6; Calcium 7.9 mg/dL (8.5-10.1); Potassium 4.4 mmol/L (3.5-5.1)
[2022-02-15] MEDS ORDERED: EPOETIN ALFA-EPBX 10,000 UNIT/1ML VIAL SC ONE (21:00)
[2022-02-15 22:00] VITALS: BP 134/71
[2022-02-15] MEDS: hydrALAZINE HCL 25 MG TAB PO SCH (22:33)
[2022-02-15] MEDS: HYDROcodone-ACET 5/325MG TAB PO PRN (22:34)
[2022-02-16 05:00] VITALS: BP 143/76
[2022-02-16] MEDS: InsuLIN REG 1unit/0.01ml Soln (100units/ml) SC SCH ×4 (05:22→22:00)
[2022-02-16] MEDS: hydrALAZINE HCL 25 MG TAB PO SCH ×3 (06:20→22:29)
[2022-02-16] MEDS: BUMETANIDE 1 MG TAB PO SCH ×2 (06:20→17:10)
[2022-02-16] MEDS: ACCU-CHEK COMFORT CURVE STRIP VI SCH ×4 (06:21→22:29)
[2022-02-16 09:00] VITALS: BP 125/80
[2022-02-16] MEDS: ASPirin 81 mg TAB PO SCH (09:59)
[2022-02-16] MEDS: CITALOPRAM HYDROBR 20 MG TAB PO SCH (10:00)
[2022-02-16] MEDS: amLODIPine BESYLATE 5 MG TAB PO SCH (10:00)
[2022-02-16] MEDS: LORazepam 0.5 MG TAB PO SCH (10:00)
[2022-02-16] MEDS: LISINOPRIL 20 MG TAB PO SCH (10:00)
[2022-02-16 13:00] VITALS: BP 104/59
[2022-02-16 13:27] LABS: Hemoglobin 7.2 g/dL (12.2-16.2)
[2022-02-16 13:29] LABS: Hematocrit 22.3 % (36.0-46.0); Mean Corpuscular Hemoglobin 28.5 pg (28.0-32.0); Mean Corpuscular Hgb Conc. 32.2 g/dL (32.0-36.0); Mean Corpuscular Volume 88.3 fL (80.0-100.0); Red Blood Cells 2.53 10^6/uL (4.0-5.20)
[2022-02-16] MEDS: MEROPENEM 500MG IVPB 50 ML IV SCH (13:30)
[2022-02-16] MEDS ORDERED: ATOR10TA52 PO (13:38)
[2022-02-16 14:00] LABS: BUN/Creatinine Ratio 5.8; Calcium 8.2 mg/dL (8.5-10.1); Potassium 4.3 mmol/L (3.5-5.1)
[2022-02-16 14:19] LABS: Red Cell Distribution Width 26.1 % (11.8-14.3)
[2022-02-16 14:22] LABS: White Blood Cell 33.1 10^3/uL (4.4-10.8)
[2022-02-16 14:23] LABS: Band Neutrophils % (manual) 0; Basophils % (manual) 0 (0.0-2.0); Blast Cells 0; Metamyelocytes % 0; Monocytes % (manual) 0 (0-12); Myelocytes % 0; Promyelocytes % 0; Reactive Lymphocytes 0
[2022-02-16 15:17] LABS: Eosinophils % (manual) 76 (0-7); Lymphocytes % (manual) 8 (10.0-50.0)
[2022-02-16 17:00] VITALS: BP 109/61
[2022-02-16 22:00] VITALS: BP 153/78
[2022-02-16] MEDS: ATORVASTATIN 20 MG TAB PO SCH (22:29)
[2022-02-16] MEDS: HYDROcodone-ACET 5/325MG TAB PO PRN (22:30)
[2022-02-17 05:00] VITALS: BP 132/68
[2022-02-17 06:05] LABS: Hematocrit 21.5 % (36.0-46.0); Mean Corpuscular Hemoglobin 28.8 pg (28.0-32.0); Mean Corpuscular Hgb Conc. 32.8 g/dL (32.0-36.0); Mean Corpuscular Volume 88.1 fL (80.0-100.0); Red Blood Cells 2.44 10^6/uL (4.0-5.20)
[2022-02-17 06:10] LABS: Calcium 8.2 mg/dL (8.5-10.1); Potassium 4.7 mmol/L (3.5-5.1); White Blood Cell 37.4 10^3/uL (4.4-10.8)
[2022-02-17 06:11] LABS: Red Cell Distribution Width 25.7 % (11.8-14.3)
[2022-02-17 06:12] LABS: BUN/Creatinine Ratio 7.4; Basophils % (manual) 0 (0.0-2.0); Blast Cells 0; Metamyelocytes % 0; Myelocytes % 0; Promyelocytes % 0; Reactive Lymphocytes 0
[2022-02-17] MEDS: InsuLIN REG 1unit/0.01ml Soln (100units/ml) SC SCH ×4 (06:15→22:00)
[2022-02-17] MEDS: hydrALAZINE HCL 25 MG TAB PO SCH ×3 (06:15→22:11)
[2022-02-17] MEDS: BUMETANIDE 1 MG TAB PO SCH ×2 (06:17→16:59)
[2022-02-17] MEDS: ACCU-CHEK COMFORT CURVE STRIP VI SCH ×4 (06:17→22:11)
[2022-02-17 08:00] VITALS: BP 119/61
[2022-02-17 08:06] LABS: Immunoglobulin G, Serum 1380 mg/dL (586-1602)
[2022-02-17 08:15] LABS: Band Neutrophils % (manual) 1; Eosinophils % (manual) 43 (0-7); Lymphocytes % (manual) 17 (10.0-50.0); Monocytes % (manual) 1 (0-12)
[2022-02-17 09:00] VITALS: BP 119/61
[2022-02-17] MEDS: LISINOPRIL 20 MG TAB PO SCH (09:41)
[2022-02-17] MEDS: CITALOPRAM HYDROBR 20 MG TAB PO SCH (09:42)
[2022-02-17] MEDS: ASPirin 81 mg TAB PO SCH (09:42)
[2022-02-17] MEDS: amLODIPine BESYLATE 5 MG TAB PO SCH (09:42)
[2022-02-17] MEDS: LORazepam 0.5 MG TAB PO SCH (09:42)
[2022-02-17 12:12] LABS: % Iron Saturation 25.1 % (15-50)
[2022-02-17 12:34] LABS: CRP High Sensitivity 1.2 mg/dL (< 0.3); Pre Albumin 14.8 mg/dL (20.0-40.0)
[2022-02-17 13:00] VITALS: BP 102/57
[2022-02-17] MEDS: MEROPENEM 500MG IVPB 50 ML IV SCH (13:16)
[2022-02-17 14:27] LABS: Ferritin 347.2 ng/mL (10-322)
[2022-02-17 17:00] VITALS: BP 126/69
[2022-02-17 22:00] VITALS: BP 113/63
[2022-02-17] MEDS: ACETAMINOPHEN 325 MG TAB PO PRN (22:07)
[2022-02-17] MEDS: ATORVASTATIN 20 MG TAB PO SCH (22:08)
[2022-02-18] VITALS (11 sets, daily range): BP systolic 113–150; BP diastolic 57–84
[2022-02-18 06:20] LABS: Hematocrit 20.7 % (36.0-46.0); Mean Corpuscular Hgb Conc. 32.9 g/dL (32.0-36.0); Red Blood Cells 2.33 10^6/uL (4.0-5.20)
[2022-02-18] MEDS: hydrALAZINE HCL 25 MG TAB PO SCH ×3 (06:24→21:35)
[2022-02-18] MEDS: BUMETANIDE 1 MG TAB PO SCH ×2 (06:25→17:23)
[2022-02-18] MEDS: InsuLIN REG 1unit/0.01ml Soln (100units/ml) SC SCH ×4 (06:25→21:31)
[2022-02-18] MEDS: ACCU-CHEK COMFORT CURVE STRIP VI SCH ×4 (06:25→21:31)
[2022-02-18 06:26] LABS: BUN/Creatinine Ratio 8.9
[2022-02-18 06:28] LABS: Mean Corpuscular Hemoglobin 29.3 pg (28.0-32.0); Mean Corpuscular Volume 89.2 fL (80.0-100.0)
[2022-02-18 06:58] LABS: Red Cell Distribution Width 25.7 % (11.8-14.3)
[2022-02-18 06:59] LABS: White Blood Cell 38.8 10^3/uL (4.4-10.8)
[2022-02-18 07:00] LABS: Basophils % (manual) 0 (0.0-2.0); Blast Cells 0; Hemoglobin 6.8 g/dL (12.2-16.2); Metamyelocytes % 0; Myelocytes % 0; Promyelocytes % 0; Reactive Lymphocytes 0
[2022-02-18 09:12] LABS: Band Neutrophils % (manual) 2; Eosinophils % (manual) 41 (0-7); Lymphocytes % (manual) 12 (10.0-50.0); Monocytes % (manual) 2 (0-12)
[2022-02-18] MEDS ORDERED: SODIUM CHL 0.9% 1000 ML BAG XX ONE (09:15)
[2022-02-18] MEDS: amLODIPine BESYLATE 5 MG TAB PO SCH (10:00)
[2022-02-18] MEDS: ASPirin 81 mg TAB PO SCH (10:00)
[2022-02-18] MEDS: LISINOPRIL 20 MG TAB PO SCH (10:00)
[2022-02-18] MEDS: CITALOPRAM HYDROBR 20 MG TAB PO SCH (10:27)
[2022-02-18] MEDS: LORazepam 0.5 MG TAB PO SCH (10:27)
[2022-02-18] MEDS ORDERED: VANCOMYCIN 1GM/250ML 250 ML IV ONE (10:45)
[2022-02-18 11:01] LABS: Free T4 (Free Thyroxine) 1.07 ng/dL (0.89-1.76)
[2022-02-18 11:02] LABS: Folate (Folic Acid) 7.79 ng/mL (5.38-24)
[2022-02-18 13:18] LABS: Hepatitis A Ab IgM Negative; Hepatitis B Core IgM Negative; Hepatitis C Antibody Negative (Negative)
[2022-02-18 13:56] LABS: INR 1.07 (0.9-1.15); Partial Thromboplastin Time 31.1 sec (23.6-33.0)
[2022-02-18] MEDS ORDERED: EPOETIN ALFA-EPBX 10,000 UNIT/1ML VIAL SC ONE (21:00)
[2022-02-18] MEDS: ATORVASTATIN 20 MG TAB PO SCH (21:35)
[2022-02-19 05:00] VITALS: BP 143/63
[2022-02-19] MEDS: hydrALAZINE HCL 25 MG TAB PO SCH ×3 (05:08→21:32)
[2022-02-19] MEDS: BUMETANIDE 1 MG TAB PO SCH ×2 (05:09→17:35)
[2022-02-19] MEDS: InsuLIN REG 1unit/0.01ml Soln (100units/ml) SC SCH ×4 (06:16→21:22)
[2022-02-19] MEDS: ACCU-CHEK COMFORT CURVE STRIP VI SCH ×4 (06:16→21:21)
[2022-02-19 06:27] LABS: Hematocrit 26.1 % (36.0-46.0); Hemoglobin 9.2 g/dL (12.2-16.2); Mean Corpuscular Hemoglobin 30.7 pg (28.0-32.0); Mean Corpuscular Hgb Conc. 35.4 g/dL (32.0-36.0); Mean Corpuscular Volume 86.9 fL (80.0-100.0); Red Blood Cells 3.01 10^6/uL (4.0-5.20)
[2022-02-19 06:36] LABS: INR 1.1 (0.9-1.15); Partial Thromboplastin Time 30.3 sec (23.6-33.0)
[2022-02-19 06:39] LABS: Potassium 4.4 mmol/L (3.5-5.1)
[2022-02-19 06:44] LABS: BUN/Creatinine Ratio 9.5
[2022-02-19 07:09] LABS: Red Cell Distribution Width 23.1 % (11.8-14.3)
[2022-02-19 07:26] LABS: White Blood Cell 39.2 10^3/uL (4.4-10.8)
[2022-02-19 07:27] LABS: Band Neutrophils % (manual) 0; Basophils % (manual) 0 (0.0-2.0); Blast Cells 0; Metamyelocytes % 0; Monocytes % (manual) 0 (0-12); Myelocytes % 0; Promyelocytes % 0; Reactive Lymphocytes 0
[2022-02-19 08:37] LABS: Eosinophils % (manual) 76 (0-7); Lymphocytes % (manual) 7 (10.0-50.0)
[2022-02-19 09:00] VITALS: BP 136/70
[2022-02-19] MEDS ORDERED: HYDROmorphone HCL 2 MG/ML VL/or syr IV PRN (09:00)
[2022-02-19] MEDS: LORazepam 0.5 MG TAB PO SCH (10:40)
[2022-02-19] MEDS: LISINOPRIL 20 MG TAB PO SCH (10:40)
[2022-02-19] MEDS: ASPirin 81 mg TAB PO SCH (10:41)
[2022-02-19] MEDS: CITALOPRAM HYDROBR 20 MG TAB PO SCH (10:41)
[2022-02-19] MEDS: amLODIPine BESYLATE 5 MG TAB PO SCH (10:41)
[2022-02-19 13:00] VITALS: BP 123/74
[2022-02-19] MEDS ORDERED: LISI20TA28 PO (16:50)
[2022-02-19] MEDS ORDERED: AMLO-496 PO (16:50)
[2022-02-19 17:00] VITALS: BP_SYST 120; BP_SYST 139; BP_DIAS 66; BP_DIAS 84
[2022-02-19] MEDS: ATORVASTATIN 20 MG TAB PO SCH (21:32)
[2022-02-19 22:19] VITALS: BP 130/74
[2022-02-20 05:00] VITALS: BP 123/59
[2022-02-20] MEDS: hydrALAZINE HCL 25 MG TAB PO SCH ×2 (06:45→15:03)
[2022-02-20] MEDS: BUMETANIDE 1 MG TAB PO SCH ×2 (06:45→17:22)
[2022-02-20] MEDS: ACCU-CHEK COMFORT CURVE STRIP VI SCH ×3 (06:45→17:00)
[2022-02-20] MEDS: InsuLIN REG 1unit/0.01ml Soln (100units/ml) SC SCH ×3 (06:46→17:00)
[2022-02-20] MEDS ORDERED: SODIUM CHL 0.9% 1000 ML BAG XX ONE (07:00)
[2022-02-20 09:00] VITALS: BP 145/83
[2022-02-20 13:00] VITALS: BP 112/62
[2022-02-20] MEDS: ASPirin 81 mg TAB PO SCH (15:01)
[2022-02-20] MEDS: LORazepam 0.5 MG TAB PO SCH (15:01)
[2022-02-20] MEDS: CITALOPRAM HYDROBR 20 MG TAB PO SCH (15:01)
[2022-02-20] MEDS: amLODIPine BESYLATE 5 MG TAB PO SCH (15:02)
[2022-02-20] MEDS: LISINOPRIL 20 MG TAB PO SCH (15:03)
[2022-02-20 15:58] LABS: Hematocrit 29.3 % (36.0-46.0); Hemoglobin 9.8 g/dL (12.2-16.2)
[2022-02-20 15:59] VITALS: BP 112/62
[2022-02-20 17:02] VITALS: BP 147/80
[2022-02-20] MEDS ORDERED: EPOETIN ALFA-EPBX 10,000 UNIT/1ML VIAL SC ONE (21:00)
== END 2022-02-20 18:52 | disposition home or self-care (01) | DRG 190 ==
LOC: EDBD 14:24 → ER 14:24 → TELE 19:27 → TELE-WESTW 21:50
PROVIDERS: ADMIT Internal Medicine; ATTEND Internal Medicine
PROC: 5A1D70Z Performance of Urinary Filtration, Intermittent, Less than 6 Hours Per Day (ICD-10-PCS; 2022-02-13)
PROC: 5A1D70Z Performance of Urinary Filtration, Intermittent, Less than 6 Hours Per Day (ICD-10-PCS; 2022-02-14)
PROC: 30233N1 Transfusion of Nonautologous Red Blood Cells into Peripheral Vein, Percutaneous Approach (ICD-10-PCS; principal; 2022-02-18)
PROC: 5A1D70Z Performance of Urinary Filtration, Intermittent, Less than 6 Hours Per Day (ICD-10-PCS; 2022-02-18)
PROC: 079T3ZX Drainage of Bone Marrow, Percutaneous Approach, Diagnostic (ICD-10-PCS; 2022-02-19)
PROC: 5A1D70Z Performance of Urinary Filtration, Intermittent, Less than 6 Hours Per Day (ICD-10-PCS; 2022-02-20)
DX: I21.4 Non-ST elevation (NSTEMI) myocardial infarction (principal); I13.2 Hypertensive heart and chronic kidney disease with heart failure and with stage 5 chronic kidney disease, or end stage renal disease; J91.8 Pleural effusion in other conditions classified elsewhere; J96.11 Chronic respiratory failure with hypoxia; J18.9 Pneumonia, unspecified organism; D72.10 Eosinophilia, unspecified; D63.1 Anemia in chronic kidney disease; N18.6 End stage renal disease; Z20.822 Contact with and (suspected) exposure to COVID-19; J98.11 Atelectasis; Z99.2 Dependence on renal dialysis; E11.22 Type 2 diabetes mellitus with diabetic chronic kidney disease; E78.5 Hyperlipidemia, unspecified; F32.A Depression, unspecified; H54.7 Unspecified visual loss; I50.32 Chronic diastolic (congestive) heart failure; J44.0 Chronic obstructive pulmonary disease with (acute) lower respiratory infection; Z82.49 Family history of ischemic heart disease and other diseases of the circulatory system; Z83.3 Family history of diabetes mellitus; Z86.73 Personal history of transient ischemic attack (TIA), and cerebral infarction without residual deficits; R55 Syncope and collapse
CPT/HCPCS: 36415; 70450; 70496; 70498; 70551; 71045; 71250; 74176; 80048; 80053; 80074; 80202; 82040; 82306; 82607; 82668; 82728; 82746; 82784; 82785; 82962; 83010; 83036; 83520; 83540; 83550; 83605; 83615; 83880; 83970; 84100; 84439; 84443; 84484; 85007; 85014; 85018; 85025; 85027; 85045; 85048; 85610; 85652; 85730; 86038; 86141; 86160; 86256; 86703; 86850; 86880; 86885; 86900; 86901; 86920; 87040; 87045; 87081; 87177; 87205; 87427; 87493; 87804; 90935; 93005; 93306; 95819; 96365; 96368; 97116; 97163; 97530; G0378; J0696; J1642; J1815; J2185; J2543; J3490; P9047

== ENCOUNTER → 2022-02-27 | Outpatient (CLI) | payer MEDICAID ==
[~2022-02-27] MED LIST changes: -AML5T PO; +AMLO-496 PO; -AMOX500T86 PO; +ATOR10TA52 PO; +LISI20TA28 PO; +LORA0.5T20 PO
[2022-02-27 15:42] LABS: Hematocrit 26.5 % (36.0-46.0); Hemoglobin 8.8 g/dL (12.2-16.2); Mean Corpuscular Hemoglobin 30.2 pg (28.0-32.0); Mean Corpuscular Hgb Conc. 33.2 g/dL (32.0-36.0); Red Blood Cells 2.91 10^6/uL (4.0-5.20); Red Cell Distribution Width 24.1 % (11.8-14.3); White Blood Cell 36.1 10^3/uL (4.4-10.8)
[2022-02-27 15:44] LABS: Band Neutrophils % (manual) 0; Basophils % (manual) 0 (0.0-2.0); Blast Cells 0; Metamyelocytes % 0; Myelocytes % 0; Promyelocytes % 0; Reactive Lymphocytes 0
[2022-02-27 16:51] LABS: Lymphocytes % (manual) 6 (10.0-50.0); Monocytes % (manual) 1 (0-12)
[2022-02-27 16:52] LABS: Eosinophils % (manual) 81 (0-7)
== END | disposition home or self-care (01) ==
LOC: LAB 14:59
PROVIDERS: ATTEND Internal Medicine
DX: D64.9 Anemia, unspecified (principal); R19.7 Diarrhea, unspecified; E78.5 Hyperlipidemia, unspecified; I10 Essential (primary) hypertension
CPT/HCPCS: 36415; 85007; 85027; 87040; 87045; 87427; 87493

== ENCOUNTER → 2022-03-04 | Outpatient (CLI) | payer MEDICAID | END | disposition home or self-care (01) | LOC: Rad HDHVI 08:05 | PROVIDERS: ATTEND Internal Medicine Cardiovascular Disease | DX: I08.1 Rheumatic disorders of both mitral and tricuspid valves (principal); R07.9 Chest pain, unspecified; I27.20 Pulmonary hypertension, unspecified | CPT/HCPCS: 93306 ==

== ENCOUNTER → 2022-03-13 | Outpatient (CLI) | payer MEDICAID ==
[2022-03-13 15:29] LABS: Hemoglobin 7.8 g/dL (12.2-16.2); White Blood Cell 21.3 10^3/uL (4.4-10.8)
[2022-03-13 15:31] LABS: Hematocrit 23.5 % (36.0-46.0); Mean Corpuscular Hemoglobin 31.4 pg (28.0-32.0); Red Blood Cells 2.47 10^6/uL (4.0-5.20)
[2022-03-13 15:49] LABS: Red Cell Distribution Width 21.7 % (11.8-14.3)
[2022-03-13 15:50] LABS: Band Neutrophils % (manual) 0; Basophils % (manual) 0 (0.0-2.0); Blast Cells 0; Metamyelocytes % 0; Myelocytes % 0; Promyelocytes % 0; Reactive Lymphocytes 0
[2022-03-13 16:50] LABS: Eosinophils % (manual) 69 (0-7); Lymphocytes % (manual) 5 (10.0-50.0); Monocytes % (manual) 1 (0-12)
== END | disposition home or self-care (01) ==
LOC: LAB 15:17
PROVIDERS: ATTEND Internal Medicine
DX: R05.9 Cough, unspecified (principal); I50.9 Heart failure, unspecified; E11.9 Type 2 diabetes mellitus without complications
CPT/HCPCS: 36415; 83880; 85007; 85027

== ENCOUNTER → 2022-04-17 | Outpatient (CLI) | payer MEDICARE, MEDICAID ==
[2022-04-17 16:06] LABS: Hematocrit 33.5 % (36.0-46.0); Hemoglobin 10.9 g/dL (12.2-16.2); Mean Corpuscular Hgb Conc. 32.6 g/dL (32.0-36.0)
[2022-04-17 16:20] LABS: Mean Corpuscular Hemoglobin 32.3 pg (28.0-32.0); Mean Corpuscular Volume 98.9 fL (80.0-100.0); Red Blood Cells 3.39 10^6/uL (4.0-5.20); Red Cell Distribution Width 15.7 % (11.8-14.3); White Blood Cell 6.7 10^3/uL (4.4-10.8)
[2022-04-17 16:23] LABS: Band Neutrophils % (manual) 0; Basophils % (manual) 0 (0.0-2.0); Blast Cells 0; Metamyelocytes % 0; Myelocytes % 0; Promyelocytes % 0; Reactive Lymphocytes 0
[2022-04-17 16:29] LABS: Calcium 7.6 mg/dL (8.5-10.1); Potassium 4.1 mmol/L (3.5-5.1)
[2022-04-17 16:32] LABS: BUN/Creatinine Ratio 8.5; Bilirubin, Total 0.5 mg/dL (0.2-1.0); Total Protein 7.8 g/dL (6.4-8.2); Uric Acid 1.8 mg/dL (2.6-6.0)
[2022-04-17 17:38] LABS: Eosinophils % (manual) 26 (0-7); Lymphocytes % (manual) 22 (10.0-50.0); Monocytes % (manual) 8 (0-12)
== END | disposition home or self-care (01) ==
LOC: LAB 15:52
PROVIDERS: ATTEND Internal Medicine
DX: N18.31 Chronic kidney disease, stage 3a (principal); E11.22 Type 2 diabetes mellitus with diabetic chronic kidney disease; J90 Pleural effusion, not elsewhere classified; R06.02 Shortness of breath
CPT/HCPCS: 36415; 80053; 83880; 84550; 85007; 85027; 85652

== ENCOUNTER 2022-06-16 00:24 | Emergency (ER) | payer MEDICARE, MEDICAID | END 2022-06-16 02:00 | disposition left against medical advice (07) | LOC: ER 00:24 | DX: R05.9 Cough, unspecified (principal); Z53.21 Procedure and treatment not carried out due to patient leaving prior to being seen by health care provider ==

== ENCOUNTER 2022-06-19 13:03 | Emergency (ER) | payer MEDICARE, MEDICAID ==
[~2022-06-19] VITALS: Ht 160 cm; Wt 72.0 kg
[2022-06-19] MEDS ORDERED: cloNIDine HCL 0.1 MG TAB PO ONE (14:15)
[2022-06-19] MEDS ORDERED: MORPHINE SULFATE INJ 2 MG/ml SYRG IV ONE (15:15)
[2022-06-19] MEDS ORDERED: DexAMETHasone SOD PHOS 4 MG/1ML SDV INJ IV ONE (15:15)
[2022-06-19] MEDS ORDERED: amLODIPine BESYLATE 5 MG TAB PO ONE (17:15)
[2022-06-19] MEDS ORDERED: LABETALOL HCL 5 MG/ML 4ML SYRINGE IV ONE (18:30)
[2022-06-19] MEDS ORDERED: LISINOPRIL 20 MG TAB PO ONE (18:30)
[2022-06-19 19:39] VITALS: BP 175/74
== END 2022-06-19 20:22 | disposition home or self-care (01) ==
LOC: ER 13:03 → EDBD 13:03 → ER 20:22
DX: I13.2 Hypertensive heart and chronic kidney disease with heart failure and with stage 5 chronic kidney disease, or end stage renal disease (principal); E11.22 Type 2 diabetes mellitus with diabetic chronic kidney disease; N18.6 End stage renal disease; I50.9 Heart failure, unspecified; E78.5 Hyperlipidemia, unspecified; I25.2 Old myocardial infarction; Z99.2 Dependence on renal dialysis; Z79.82 Long term (current) use of aspirin; Z79.899 Other long term (current) drug therapy
CPT/HCPCS: 93005; 96374; 96375; 99284; J1100; J2270; J3490

== ENCOUNTER → 2022-07-23 | Outpatient (CLI) | payer MEDICARE, MEDICAID ==
[2022-07-23 12:37] LABS: Hematocrit 37.7 % (36.0-46.0); Mean Corpuscular Hemoglobin 30.2 pg (28.0-32.0); Mean Corpuscular Volume 94.4 fL (80.0-100.0); Red Blood Cells 3.99 10^6/uL (4.0-5.20); Red Cell Distribution Width 16.7 % (11.8-14.3); White Blood Cell 6.3 10^3/uL (4.4-10.8)
[2022-07-23 12:59] LABS: Basophils % (manual) 0 (0.0-2.0); Blast Cells 0; Metamyelocytes % 0; Myelocytes % 0; Promyelocytes % 0; Reactive Lymphocytes 0
== END | disposition home or self-care (01) ==
LOC: LAB 12:26
PROVIDERS: ATTEND Internal Medicine
DX: D64.9 Anemia, unspecified (principal)
CPT/HCPCS: 36415; 85007; 85027

== ENCOUNTER → 2022-08-09 | Outpatient (CLI) | payer MEDICARE, MEDICAID ==
[2022-08-09 11:26] LABS: Hematocrit 37.2 % (36.0-46.0); Hemoglobin 11.9 g/dL (12.2-16.2); Mean Corpuscular Hemoglobin 29.8 pg (28.0-32.0); Mean Corpuscular Hgb Conc. 32.1 g/dL (32.0-36.0); Red Blood Cells 3.99 10^6/uL (4.0-5.20); Red Cell Distribution Width 15.5 % (11.8-14.3); White Blood Cell 6.6 10^3/uL (4.4-10.8)
[2022-08-09 11:31] LABS: Band Neutrophils % (manual) 0; Basophils % (manual) 0 (0.0-2.0); Blast Cells 0; Metamyelocytes % 0; Monocytes % (manual) 0 (0-12); Myelocytes % 0; Promyelocytes % 0; Reactive Lymphocytes 0
[2022-08-09 11:51] LABS: Eosinophils % (manual) 13 (0-7); Lymphocytes % (manual) 21 (10.0-50.0)
== END | disposition home or self-care (01) ==
LOC: LAB 11:04
PROVIDERS: ATTEND Internal Medicine
DX: D64.9 Anemia, unspecified (principal)
CPT/HCPCS: 36415; 85007; 85027

== ENCOUNTER 2022-09-16 11:25 | Inpatient (IN) | payer MEDICARE, MEDICAID ==
[~2022-09-16] VITALS: Ht 165.1 cm; Wt 75.5 kg
[2022-09-16 13:15] LABS: Hematocrit 37.4 % (36.0-46.0); Hemoglobin 12.4 g/dL (12.2-16.2); Mean Corpuscular Hemoglobin 30.4 pg (28.0-32.0); Mean Corpuscular Volume 92.2 fL (80.0-100.0); Red Blood Cells 4.06 10^6/uL (4.0-5.20); Red Cell Distribution Width 18.3 % (11.8-14.3); White Blood Cell 8.1 10^3/uL (4.4-10.8)
[2022-09-16 14:32] LABS: Albumin 2.2 g/dL (3.4-5.0); BUN/Creatinine Ratio 5.2; Bilirubin, Total 0.4 mg/dL (0.2-1.0); Calcium 7.8 mg/dL (8.5-10.1); Potassium 5.1 mmol/L (3.5-5.1)
[2022-09-16 15:16] LABS: Band Neutrophils % (manual) 0; Basophils % (manual) 0 (0.0-2.0); Blast Cells 0; Metamyelocytes % 0; Myelocytes % 0; Promyelocytes % 0
[2022-09-16 15:49] LABS: Eosinophils % (manual) 15 (0-7); Lymphocytes % (manual) 8 (10.0-50.0); Monocytes % (manual) 3 (0-12); Reactive Lymphocytes 2
[2022-09-16] MEDS ORDERED: hydrALAZINE HCL 20 MG/ML VL IV ONE (16:30)
[2022-09-16] MEDS ORDERED: HYDROcodone-ACET 5/325MG TAB PO PRN (17:15)
[2022-09-16] MEDS ORDERED: MORPHINE SULFATE INJ 2 MG/ml SYRG IV PRN (17:15)
[2022-09-16] MEDS ORDERED: DOCUSATE SOD 100 MG CAP PO PRN (17:15)
[2022-09-16] MEDS ORDERED: ACETAMINOPHEN 325 MG TAB PO PRN (17:15)
[2022-09-16] MEDS ORDERED: LABE100T4 PO (17:15)
[2022-09-16] MEDS ORDERED: NITROGLYCERIN 0.4 MG SL TAB SL PRN (17:15)
[2022-09-16] MEDS ORDERED: ONDANSETRON HCL 4 MG/2 ML VIAL IV PRN (17:15)
[2022-09-16] MEDS: CALCIUM ACETATE 667 MG CAP PO SCH (18:56)
[2022-09-16] MEDS: SODIUM CHLOR 0.9% PF (SALINE LOCK) 10ML VIAL/SYR IV SCH (21:41)
[2022-09-16] MEDS ORDERED: LABETALOL HCL 100 MG PO SCH (22:00)
[2022-09-17 04:02] LABS: Hematocrit 30.2 % (36.0-46.0); Hemoglobin 10.2 g/dL (12.2-16.2); Mean Corpuscular Hemoglobin 31.1 pg (28.0-32.0); Mean Corpuscular Hgb Conc. 33.6 g/dL (32.0-36.0); Mean Corpuscular Volume 92.5 fL (80.0-100.0); Red Blood Cells 3.27 10^6/uL (4.0-5.20); Red Cell Distribution Width 18.4 % (11.8-14.3); White Blood Cell 8.4 10^3/uL (4.4-10.8)
[2022-09-17 04:22] LABS: Albumin 1.9 g/dL (3.4-5.0); Calcium 7.6 mg/dL (8.5-10.1); Potassium 4.8 mmol/L (3.5-5.1)
[2022-09-17 04:24] LABS: BUN/Creatinine Ratio 5.2
[2022-09-17 04:25] LABS: Band Neutrophils % (manual) 0; Basophils % (manual) 0 (0.0-2.0); Blast Cells 0; Metamyelocytes % 0; Myelocytes % 0; Promyelocytes % 0; Reactive Lymphocytes 0
[2022-09-17 04:26] LABS: Bilirubin, Total 0.4 mg/dL (0.2-1.0); Total Protein 5.2 g/dL (6.4-8.2)
[2022-09-17] MEDS: SODIUM CHLOR 0.9% PF (SALINE LOCK) 10ML VIAL/SYR IV SCH ×3 (05:59→21:32)
[2022-09-17] MEDS: CALCIUM ACETATE 667 MG CAP PO SCH ×3 (08:37→18:12)
[2022-09-17] MEDS ORDERED: PATIENTS OWN MEDICATION (Atorvastatin Calcium 1 TAB) PO SCH (10:00)
[2022-09-17] MEDS ORDERED: LABETALOL HCL 200 MG TAB PO SCH (10:00)
[2022-09-17] MEDS ORDERED: PATIENTS OWN MEDICATION (Aspirin (Aspirin Low Strength) 81 MG) PO SCH (10:00)
[2022-09-17] MEDS ORDERED: PATIENTS OWN MEDICATION (Amlodipine Besylate 10 MG) PO SCH ×2 (10:00)
[2022-09-17] MEDS: PANTOPRAZOLE 40 MG/10 ML VIAL INJ IV SCH (10:08)
[2022-09-17] MEDS: CITALOPRAM HYDROBR 20 MG TAB PO SCH (10:08)
[2022-09-17] MEDS: ASPirin 81 mg TAB PO SCH (10:08)
[2022-09-17] MEDS: amLODIPine BESYLATE 5 MG TAB PO SCH (10:10)
[2022-09-17] MEDS: LABETALOL HCL 200 MG TAB PO SCH ×2 (10:15→21:31)
[2022-09-17 12:52] LABS: Eosinophils % (manual) 20 (0-7); Lymphocytes % (manual) 22 (10.0-50.0); Monocytes % (manual) 4 (0-12)
[2022-09-17] MEDS: cloNIDine HCL 0.1 MG TAB PO SCH ×2 (14:30→21:31)
[2022-09-17 17:46] VITALS: BP 100/56
[2022-09-17 22:00] VITALS: BP 141/64
[2022-09-17] MEDS ORDERED: ATORVASTATIN 20 MG TAB PO SCH (22:00)
[2022-09-18 05:00] VITALS: BP 128/67
[2022-09-18 05:39] LABS: Hematocrit 26.5 % (36.0-46.0); Hemoglobin 8.8 g/dL (12.2-16.2); Mean Corpuscular Hemoglobin 30.9 pg (28.0-32.0); Mean Corpuscular Hgb Conc. 33.2 g/dL (32.0-36.0); Mean Corpuscular Volume 93.1 fL (80.0-100.0); Red Blood Cells 2.85 10^6/uL (4.0-5.20); Red Cell Distribution Width 18.5 % (11.8-14.3); White Blood Cell 9.4 10^3/uL (4.4-10.8)
[2022-09-18 05:58] LABS: Band Neutrophils % (manual) 0; Basophils % (manual) 0 (0.0-2.0); Blast Cells 0; Metamyelocytes % 0; Myelocytes % 0; Promyelocytes % 0; Reactive Lymphocytes 0
[2022-09-18] MEDS: SODIUM CHLOR 0.9% PF (SALINE LOCK) 10ML VIAL/SYR IV SCH ×2 (06:00→14:00)
[2022-09-18 06:18] LABS: Potassium 5.5 mmol/L (3.5-5.1)
[2022-09-18 06:19] LABS: Calcium 6.9 mg/dL (8.5-10.1)
[2022-09-18] MEDS: cloNIDine HCL 0.1 MG TAB PO SCH ×2 (06:54→14:00)
[2022-09-18] MEDS ORDERED: SODIUM CHL 0.9% 1000 ML BAG XX ONE (07:00)
[2022-09-18 07:51] LABS: Eosinophils % (manual) 27 (0-7); Lymphocytes % (manual) 21 (10.0-50.0); Monocytes % (manual) 3 (0-12)
[2022-09-18 08:00] VITALS: BP 118/71
[2022-09-18] MEDS: PANTOPRAZOLE 40 MG/10 ML VIAL INJ IV SCH (08:29)
[2022-09-18] MEDS: CITALOPRAM HYDROBR 20 MG TAB PO SCH (08:29)
[2022-09-18] MEDS: CALCIUM ACETATE 667 MG CAP PO SCH ×2 (08:29→13:11)
[2022-09-18 08:53] VITALS: BP 118/71
[2022-09-18] MEDS ORDERED: CLON0.1T PO (10:35)
[2022-09-18] MEDS ORDERED: LABE200T6 PO (10:35)
[2022-09-18 13:02] VITALS: BP 140/63
[2022-09-18] MEDS: amLODIPine BESYLATE 5 MG TAB PO SCH (13:11)
[2022-09-18] MEDS: ASPirin 81 mg TAB PO SCH (13:11)
[2022-09-18] MEDS: LABETALOL HCL 200 MG TAB PO SCH (13:12)
[2022-09-18 15:12] VITALS: BP 140/63
[2022-09-18] MEDS ORDERED: EPOETIN ALFA-EPBX 10,000 UNIT/1ML VIAL SC ONE (21:00)
== END 2022-09-18 16:16 | disposition home or self-care (01) | DRG 280 ==
LOC: ER 11:25 → EDBD 11:25 → TELE 17:14 → TELE-EAST 09-17 12:30
PROVIDERS: ADMIT Nurse Practitioner Family; ATTEND Internal Medicine Pulmonary Disease
PROC: 5A1D70Z Performance of Urinary Filtration, Intermittent, Less than 6 Hours Per Day (ICD-10-PCS; principal; 2022-09-18)
DX: I21.4 Non-ST elevation (NSTEMI) myocardial infarction (principal); N18.6 End stage renal disease; I16.1 Hypertensive emergency; I13.2 Hypertensive heart and chronic kidney disease with heart failure and with stage 5 chronic kidney disease, or end stage renal disease; E11.22 Type 2 diabetes mellitus with diabetic chronic kidney disease; E78.5 Hyperlipidemia, unspecified; F32.A Depression, unspecified; Z20.822 Contact with and (suspected) exposure to COVID-19; D63.1 Anemia in chronic kidney disease; I25.10 Atherosclerotic heart disease of native coronary artery without angina pectoris; I50.9 Heart failure, unspecified; Z79.899 Other long term (current) drug therapy; Z82.49 Family history of ischemic heart disease and other diseases of the circulatory system; Z83.3 Family history of diabetes mellitus; Z99.2 Dependence on renal dialysis
CPT/HCPCS: 36415; 70450; 71045; 80048; 80053; 83880; 84484; 85007; 85027; 87426; 90935; 93005; 93306; 96374; 96375; 99291; C9113; G0378; J1642

== ENCOUNTER → 2022-11-26 | Outpatient (CLI) | payer MEDICARE, MEDICAID ==
[~2022-11-26] MED LIST changes: +CLON0.1T PO; +LABE200T6 PO
[2022-11-26 14:00] LABS: Hematocrit 27.2 % (36.0-46.0); Hemoglobin 8.9 g/dL (12.2-16.2); Mean Corpuscular Hgb Conc. 32.7 g/dL (32.0-36.0); Mean Corpuscular Volume 100.9 fL (80.0-100.0); Red Blood Cells 2.69 10^6/uL (4.0-5.20); Red Cell Distribution Width 15.7 % (11.8-14.3); White Blood Cell 9.7 10^3/uL (4.4-10.8)
[2022-11-26 14:05] LABS: Basophils % (manual) 0 (0.0-2.0); Blast Cells 0; Metamyelocytes % 0; Myelocytes % 0; Promyelocytes % 0; Reactive Lymphocytes 0
[2022-11-26 14:24] LABS: Band Neutrophils % (manual) 2; Eosinophils % (manual) 35 (0-7); Lymphocytes % (manual) 14 (10.0-50.0); Monocytes % (manual) 4 (0-12)
[2022-11-26 14:35] LABS: Albumin 2.8 g/dL (3.4-5.0); Bilirubin,Neonatal Direct 0.2 mg/dL (0.0-0.3); Calcium 7.1 mg/dL (8.5-10.1); Potassium 4.5 mmol/L (3.5-5.1)
[2022-11-26 14:38] LABS: BUN/Creatinine Ratio 7.2; Bilirubin, Total 0.4 mg/dL (0.2-1.0); Bilirubin,Neonatal Total 0.4 mg/dL (0.1-12.0); Total Protein 6.6 g/dL (6.4-8.2)
== END | disposition home or self-care (01) ==
LOC: LAB 13:43
PROVIDERS: ATTEND Internal Medicine
DX: E11.22 Type 2 diabetes mellitus with diabetic chronic kidney disease (principal); N18.6 End stage renal disease; E78.5 Hyperlipidemia, unspecified
CPT/HCPCS: 36415; 80053; 82247; 82248; 84484; 85007; 85027

== ENCOUNTER 2022-11-29 10:45 | Inpatient (IN) | payer MEDICARE, MEDICAID ==
[~2022-11-29] VITALS: Ht 162.6 cm; Wt 84.0 kg
[2022-11-29 12:00] LABS: Hemoglobin 8.9 g/dL (12.2-16.2); Red Blood Cells 2.69 10^6/uL (4.0-5.20); White Blood Cell 11.5 10^3/uL (4.4-10.8)
[2022-11-29 12:01] LABS: Hematocrit 27.4 % (36.0-46.0); Mean Corpuscular Hgb Conc. 32.4 g/dL (32.0-36.0); Mean Corpuscular Volume 101.7 fL (80.0-100.0); Red Cell Distribution Width 15.6 % (11.8-14.3)
[2022-11-29 12:26] LABS: Band Neutrophils % (manual) 0; Basophils % (manual) 0 (0.0-2.0); Blast Cells 0; Metamyelocytes % 0; Myelocytes % 0; Promyelocytes % 0; Reactive Lymphocytes 0
[2022-11-29 12:32] LABS: Calcium 6.9 mg/dL (8.5-10.1); Potassium 4.7 mmol/L (3.5-5.1)
[2022-11-29 12:38] LABS: BUN/Creatinine Ratio 7.2; Bilirubin, Total 0.5 mg/dL (0.2-1.0); Total Protein 7.2 g/dL (6.4-8.2)
[2022-11-29 13:52] LABS: Eosinophils % (manual) 31 (0-7); Lymphocytes % (manual) 3 (10.0-50.0); Monocytes % (manual) 2 (0-12)
[2022-11-29] MEDS ORDERED: DOCUSATE SOD 100 MG CAP PO PRN (14:15)
[2022-11-29] MEDS ORDERED: HYDROcodone-ACET 5/325MG TAB PO PRN (14:15)
[2022-11-29] MEDS ORDERED: MAALOX PLUS or MAALOX 30 ML PO PRN (14:15)
[2022-11-29] MEDS ORDERED: ONDANSETRON HCL 4 MG/2 ML VIAL IV PRN (14:15)
[2022-11-29] MEDS ORDERED: LORazepam 0.5 MG TAB PO PRN (14:15)
[2022-11-29] MEDS ORDERED: MORPHINE SULFATE INJ 2 MG/ml SYRG IV PRN (14:15)
[2022-11-29] MEDS ORDERED: ACETAMINOPHEN 325 MG TAB PO PRN (14:15)
[2022-11-29] MEDS ORDERED: DEXTROSE (50%) 50ML SYRG IV PRN (15:15)
[2022-11-29] MEDS: AZITHROMYCIN 500MG/ 250ML 250 ML IV SCH (18:06)
[2022-11-29] MEDS: cefTRIAXone 1GM/50ML D5W 50 ML IV SCH (18:07)
[2022-11-29] MEDS: ACCU-CHEK COMFORT CURVE STRIP VI SCH ×3 (18:07→23:56)
[2022-11-29] MEDS: InsuLIN REG 1unit/0.01ml Soln (100units/ml) SC SCH ×3 (18:22→23:56)
[2022-11-29] MEDS: cloNIDine HCL 0.1 MG TAB PO SCH (22:05)
[2022-11-29] MEDS: LABETALOL HCL 200 MG TAB PO SCH (22:06)
[2022-11-30] VITALS (7 sets, daily range): BP systolic 95–125; BP diastolic 56–66
[2022-11-30] MEDS: InsuLIN REG 1unit/0.01ml Soln (100units/ml) SC SCH ×5 (04:00→20:00)
[2022-11-30] MEDS: ACCU-CHEK COMFORT CURVE STRIP VI SCH ×5 (04:23→20:27)
[2022-11-30] MEDS: cloNIDine HCL 0.1 MG TAB PO SCH ×3 (05:20→22:00)
[2022-11-30 06:36] LABS: Hematocrit 25.1 % (36.0-46.0)
[2022-11-30 06:38] LABS: Hemoglobin 7.8 g/dL (12.2-16.2); Mean Corpuscular Hemoglobin 32.1 pg (28.0-32.0); Mean Corpuscular Hgb Conc. 31.2 g/dL (32.0-36.0); Mean Corpuscular Volume 103.1 fL (80.0-100.0); Red Blood Cells 2.44 10^6/uL (4.0-5.20); Red Cell Distribution Width 15.6 % (11.8-14.3); White Blood Cell 11.6 10^3/uL (4.4-10.8)
[2022-11-30 06:45] LABS: Band Neutrophils % (manual) 0; Basophils % (manual) 0 (0.0-2.0); Blast Cells 0; Metamyelocytes % 0; Myelocytes % 0; Promyelocytes % 0; Reactive Lymphocytes 0
[2022-11-30 07:16] LABS: Potassium 5.5 mmol/L (3.5-5.1)
[2022-11-30 07:21] LABS: BUN/Creatinine Ratio 7.8; Calcium 7.2 mg/dL (8.5-10.1)
[2022-11-30 07:53] LABS: Eosinophils % (manual) 24 (0-7); Lymphocytes % (manual) 7 (10.0-50.0); Monocytes % (manual) 1 (0-12)
[2022-11-30] MEDS: AZITHROMYCIN 500MG/ 250ML 250 ML IV SCH (10:03)
[2022-11-30] MEDS: cefTRIAXone 1GM/50ML D5W 50 ML IV SCH (10:03)
[2022-11-30] MEDS: LABETALOL HCL 200 MG TAB PO SCH ×2 (10:04→22:38)
[2022-11-30] MEDS ORDERED: SODIUM CHL 0.9% 1000 ML BAG XX ONE (11:15)
[2022-11-30] MEDS ORDERED: DEXTROSE (50%) 50ML SYRG IV ONE ×2 (17:15→18:45)
[2022-11-30] MEDS ORDERED: CALCIUM GLUC 1,000mg/50ml-NS 50 ML IV ONE ×2 (17:15→18:45)
[2022-11-30] MEDS ORDERED: SODIUM BICARBONATE 50ML VIAL 150 ML in D5W 5% 1,000 ML IV ONE (17:15)
[2022-11-30] MEDS ORDERED: InsuLIN REG 1unit/0.01ml Soln (100units/ml) IV ONE ×2 (17:15→18:45)
[2022-11-30] MEDS: SODIUM ZIRCONIUM CYCL 10 GM PAK PO SCH ×2 (18:50→22:38)
[2022-11-30] MEDS ORDERED: EPOETIN ALFA-EPBX 10,000 UNIT/1ML VIAL SC ONE (21:00)
[2022-11-30] MEDS ORDERED: SODIUM BICARBONATE 8.4% INJ 50ML SYRINGE IV ONE ×2 (21:30)
[2022-12-01] MEDS: InsuLIN REG 1unit/0.01ml Soln (100units/ml) SC SCH ×7 (04:00→23:40)
[2022-12-01] MEDS: ACCU-CHEK COMFORT CURVE STRIP VI SCH ×7 (04:15→23:40)
[2022-12-01 04:43] VITALS: BP 128/60
[2022-12-01] MEDS: cloNIDine HCL 0.1 MG TAB PO SCH ×3 (06:00→22:07)
[2022-12-01] MEDS: SODIUM ZIRCONIUM CYCL 10 GM PAK PO SCH ×3 (06:06→22:07)
[2022-12-01 06:16] LABS: Hematocrit 23.6 % (36.0-46.0); Red Blood Cells 2.35 10^6/uL (4.0-5.20); Red Cell Distribution Width 15.4 % (11.8-14.3)
[2022-12-01 06:19] LABS: Hemoglobin 7.8 g/dL (12.2-16.2); Mean Corpuscular Hgb Conc. 32.8 g/dL (32.0-36.0); Mean Corpuscular Volume 100.5 fL (80.0-100.0); White Blood Cell 9.4 10^3/uL (4.4-10.8)
[2022-12-01 06:41] LABS: Basophils % (manual) 0 (0.0-2.0); Blast Cells 0; Metamyelocytes % 0; Myelocytes % 0; Promyelocytes % 0; Reactive Lymphocytes 0
[2022-12-01 06:58] LABS: Potassium 4.5 mmol/L (3.5-5.1)
[2022-12-01] MEDS ORDERED: SODIUM CHL 0.9% 1000 ML BAG XX ONE (07:00)
[2022-12-01 07:07] LABS: Albumin 2.6 g/dL (3.4-5.0); BUN/Creatinine Ratio 7.9; Bilirubin, Total 0.3 mg/dL (0.2-1.0); Calcium 6.9 mg/dL (8.5-10.1); Total Protein 6.2 g/dL (6.4-8.2)
[2022-12-01 08:30] VITALS: BP 154/83
[2022-12-01] MEDS: cefTRIAXone 1GM/50ML D5W 50 ML IV SCH (10:29)
[2022-12-01] MEDS: AZITHROMYCIN 500MG/ 250ML 250 ML IV SCH (10:29)
[2022-12-01] MEDS: LABETALOL HCL 200 MG TAB PO SCH ×2 (10:29→22:07)
[2022-12-01 10:44] LABS: Band Neutrophils % (manual) 2; Eosinophils % (manual) 30 (0-7); Lymphocytes % (manual) 17 (10.0-50.0); Monocytes % (manual) 6 (0-12)
[2022-12-01] MEDS: LOSARTAN POTASSIUM 50 MG TAB PO SCH (11:54)
[2022-12-01 12:52] VITALS: BP 164/78
[2022-12-01 16:31] VITALS: BP 160/81
[2022-12-01] MEDS: cloNIDine HCL 0.1 MG TAB PO PRN (16:40)
[2022-12-01] MEDS ORDERED: EPOETIN ALFA-EPBX 10,000 UNIT/1ML VIAL SC ONE (21:00)
[2022-12-01 22:00] VITALS: BP 154/73
[2022-12-02] MEDS: ACCU-CHEK COMFORT CURVE STRIP VI SCH ×5 (03:59→20:00)
[2022-12-02] MEDS: InsuLIN REG 1unit/0.01ml Soln (100units/ml) SC SCH ×5 (03:59→20:00)
[2022-12-02 05:00] VITALS: BP 176/81
[2022-12-02] MEDS: cloNIDine HCL 0.1 MG TAB PO SCH ×3 (05:43→22:16)
[2022-12-02] MEDS: SODIUM ZIRCONIUM CYCL 10 GM PAK PO SCH (05:44)
[2022-12-02 06:52] LABS: Hemoglobin 8.1 g/dL (12.2-16.2)
[2022-12-02 06:55] LABS: Hematocrit 24.4 % (36.0-46.0); Mean Corpuscular Hemoglobin 33.2 pg (28.0-32.0); Mean Corpuscular Hgb Conc. 33.1 g/dL (32.0-36.0); Mean Corpuscular Volume 100.2 fL (80.0-100.0); Red Blood Cells 2.44 10^6/uL (4.0-5.20); Red Cell Distribution Width 15.9 % (11.8-14.3); White Blood Cell 9.4 10^3/uL (4.4-10.8)
[2022-12-02] MEDS: cloNIDine HCL 0.1 MG TAB PO PRN (06:59)
[2022-12-02 07:07] LABS: Basophils % (manual) 0 (0.0-2.0); Blast Cells 0; Metamyelocytes % 0; Myelocytes % 0; Promyelocytes % 0; Reactive Lymphocytes 0
[2022-12-02 07:08] LABS: Albumin 2.6 g/dL (3.4-5.0); Calcium 6.9 mg/dL (8.5-10.1); Potassium 3.4 mmol/L (3.5-5.1)
[2022-12-02 07:13] LABS: BUN/Creatinine Ratio 5.9; Bilirubin, Total 0.4 mg/dL (0.2-1.0); Total Protein 5.8 g/dL (6.4-8.2)
[2022-12-02 08:25] LABS: Band Neutrophils % (manual) 1; Eosinophils % (manual) 30 (0-7); Lymphocytes % (manual) 8 (10.0-50.0); Monocytes % (manual) 3 (0-12)
[2022-12-02 08:31] LABS: INR 1.2 (0.9-1.15); Partial Thromboplastin Time 28.2 sec (24.6-33.4)
[2022-12-02 09:37] VITALS: BP 179/87
[2022-12-02] MEDS: cefTRIAXone 1GM/50ML D5W 50 ML IV SCH (09:43)
[2022-12-02] MEDS: AZITHROMYCIN 500MG/ 250ML 250 ML IV SCH (09:43)
[2022-12-02] MEDS: amLODIPine BESYLATE 5 MG TAB PO SCH (09:44)
[2022-12-02] MEDS: LABETALOL HCL 200 MG TAB PO SCH ×2 (09:45→22:16)
[2022-12-02] MEDS: LISINOPRIL 20 MG TAB PO SCH (09:45)
[2022-12-02] MEDS: LOSARTAN POTASSIUM 50 MG TAB PO SCH (09:46)
[2022-12-02 13:00] VITALS: BP 112/70
[2022-12-02 14:54] LABS: Hepatitis A Ab IgM Negative; Hepatitis B Core IgM Negative
[2022-12-02 14:55] LABS: Hepatitis C Antibody Negative (Negative)
[2022-12-02 17:02] VITALS: BP 138/74
[2022-12-02 22:00] VITALS: BP 152/71
[2022-12-03] MEDS: ACCU-CHEK COMFORT CURVE STRIP VI SCH ×6 (00:04→20:00)
[2022-12-03] MEDS: InsuLIN REG 1unit/0.01ml Soln (100units/ml) SC SCH ×6 (04:00→20:00)
[2022-12-03 05:00] VITALS: BP 113/74
[2022-12-03] MEDS: cloNIDine HCL 0.1 MG TAB PO SCH ×3 (06:00→22:25)
[2022-12-03 06:35] LABS: Mean Corpuscular Hemoglobin 32.9 pg (28.0-32.0); Mean Corpuscular Hgb Conc. 33.4 g/dL (32.0-36.0)
[2022-12-03 06:38] LABS: Hematocrit 25.2 % (36.0-46.0); Hemoglobin 8.4 g/dL (12.2-16.2); Mean Corpuscular Volume 98.6 fL (80.0-100.0); Red Blood Cells 2.55 10^6/uL (4.0-5.20); Red Cell Distribution Width 15.6 % (11.8-14.3); White Blood Cell 8.8 10^3/uL (4.4-10.8)
[2022-12-03 06:53] LABS: Basophils % (manual) 0 (0.0-2.0); Blast Cells 0; Metamyelocytes % 0; Myelocytes % 0; Promyelocytes % 0
[2022-12-03 06:57] LABS: Potassium 3.8 mmol/L (3.5-5.1)
[2022-12-03] MEDS ORDERED: SODIUM CHL 0.9% 1000 ML BAG XX ONE (07:00)
[2022-12-03 07:03] LABS: Albumin 2.4 g/dL (3.4-5.0); Bilirubin, Total 0.4 mg/dL (0.2-1.0); Calcium 7.1 mg/dL (8.5-10.1); Total Protein 6.1 g/dL (6.4-8.2)
[2022-12-03 08:30] VITALS: BP 126/75
[2022-12-03 08:33] LABS: Band Neutrophils % (manual) 2; Eosinophils % (manual) 48 (0-7); Lymphocytes % (manual) 4 (10.0-50.0); Monocytes % (manual) 8 (0-12); Reactive Lymphocytes 1
[2022-12-03 09:18] VITALS: BP 126/75
[2022-12-03] MEDS: amLODIPine BESYLATE 5 MG TAB PO SCH (10:00)
[2022-12-03] MEDS: LABETALOL HCL 200 MG TAB PO SCH ×2 (10:00→22:25)
[2022-12-03] MEDS: LOSARTAN POTASSIUM 50 MG TAB PO SCH (10:00)
[2022-12-03] MEDS: LISINOPRIL 20 MG TAB PO SCH (10:00)
[2022-12-03] MEDS: cefTRIAXone 1GM/50ML D5W 50 ML IV SCH (10:14)
[2022-12-03] MEDS: AZITHROMYCIN 500MG/ 250ML 250 ML IV SCH (10:14)
[2022-12-03 12:30] VITALS: BP 170/79
[2022-12-03 17:02] VITALS: BP 170/89
[2022-12-03] MEDS: cloNIDine HCL 0.1 MG TAB PO PRN (18:43)
[2022-12-03] MEDS ORDERED: EPOETIN ALFA-EPBX 10,000 UNIT/1ML VIAL SC ONE (21:00)
[2022-12-03 22:00] VITALS: BP 180/84
[2022-12-04] MEDS: ACCU-CHEK COMFORT CURVE STRIP VI SCH ×6 (04:00→20:00)
[2022-12-04] MEDS: InsuLIN REG 1unit/0.01ml Soln (100units/ml) SC SCH ×6 (04:00→21:00)
[2022-12-04 05:00] VITALS: BP 160/88
[2022-12-04] MEDS: cloNIDine HCL 0.1 MG TAB PO SCH ×3 (06:00→21:26)
[2022-12-04 08:00] VITALS: BP 148/78
[2022-12-04 09:00] VITALS: BP 170/76
[2022-12-04] MEDS: LABETALOL HCL 200 MG TAB PO SCH ×2 (10:00→21:26)
[2022-12-04] MEDS: cefTRIAXone 1GM/50ML D5W 50 ML IV SCH (10:21)
[2022-12-04] MEDS: AZITHROMYCIN 500MG/ 250ML 250 ML IV SCH (10:24)
[2022-12-04 13:00] VITALS: BP 160/86
[2022-12-04 16:55] VITALS: BP 188/96
[2022-12-04] MEDS: amLODIPine BESYLATE 5 MG TAB PO SCH (17:44)
[2022-12-04] MEDS: LISINOPRIL 20 MG TAB PO SCH (17:45)
[2022-12-04] MEDS: LOSARTAN POTASSIUM 50 MG TAB PO SCH (17:45)
[2022-12-04] MEDS ORDERED: EPOETIN ALFA-EPBX 10,000 UNIT/1ML VIAL SC ONE (21:00)
[2022-12-04 22:00] VITALS: BP_SYST 116; BP_SYST 166; BP_DIAS 83
[2022-12-05] MEDS: InsuLIN REG 1unit/0.01ml Soln (100units/ml) SC SCH ×5 (04:00→08:42)
[2022-12-05] MEDS: ACCU-CHEK COMFORT CURVE STRIP VI SCH ×3 (04:05→08:00)
[2022-12-05 05:00] VITALS: BP 152/80
[2022-12-05] MEDS: cloNIDine HCL 0.1 MG TAB PO SCH (06:00)
[2022-12-05 08:00] VITALS: BP 148/78
[2022-12-05 08:59] VITALS: BP 147/77
[2022-12-05] MEDS: cefTRIAXone 1GM/50ML D5W 50 ML IV SCH (09:44)
[2022-12-05] MEDS: amLODIPine BESYLATE 5 MG TAB PO SCH (09:45)
[2022-12-05] MEDS: LISINOPRIL 20 MG TAB PO SCH (09:46)
[2022-12-05] MEDS: LOSARTAN POTASSIUM 50 MG TAB PO SCH (09:46)
[2022-12-05] MEDS: LABETALOL HCL 200 MG TAB PO SCH (09:46)
[2022-12-05] MEDS ORDERED: AZITHROMYCIN 250 MG TAB PO SCH (10:00)
[2022-12-05] MEDS ORDERED: AZIT500T66 PO (11:21)
[2022-12-05] MEDS ORDERED: ALBUAER3 IN (11:22)
[2022-12-05] MEDS ORDERED: EPOETIN ALFA-EPBX 4,000 UNIT/ML VIAL SC ONE (21:00)
[2022-12-06] MEDS ORDERED: SODIUM CHL 0.9% 1000 ML BAG XX ONE (07:00)
[2022-12-06] MEDS ORDERED: EPOETIN ALFA-EPBX 10,000 UNIT/1ML VIAL SC ONE (21:00)
== END 2022-12-05 13:57 | disposition home or self-care (01) | DRG 291 ==
LOC: ER 10:45 → TELE 14:21 → TELE-WESTW 22:18
PROVIDERS: ADMIT Hospitalist; ATTEND Family Medicine
PROC: 5A1D70Z Performance of Urinary Filtration, Intermittent, Less than 6 Hours Per Day (ICD-10-PCS; 2022-12-01)
PROC: 0W9930Z Drainage of Right Pleural Cavity with Drainage Device, Percutaneous Approach (ICD-10-PCS; principal; 2022-12-02)
PROC: 5A1D70Z Performance of Urinary Filtration, Intermittent, Less than 6 Hours Per Day (ICD-10-PCS; 2022-12-04)
DX: I13.2 Hypertensive heart and chronic kidney disease with heart failure and with stage 5 chronic kidney disease, or end stage renal disease (principal); J18.9 Pneumonia, unspecified organism; J96.00 Acute respiratory failure, unspecified whether with hypoxia or hypercapnia; N18.6 End stage renal disease; J91.8 Pleural effusion in other conditions classified elsewhere; I50.9 Heart failure, unspecified; E11.22 Type 2 diabetes mellitus with diabetic chronic kidney disease; E87.5 Hyperkalemia; R19.7 Diarrhea, unspecified; Z20.822 Contact with and (suspected) exposure to COVID-19; E78.00 Pure hypercholesterolemia, unspecified; D63.1 Anemia in chronic kidney disease; I95.9 Hypotension, unspecified; F32.A Depression, unspecified; Z82.49 Family history of ischemic heart disease and other diseases of the circulatory system; Z83.3 Family history of diabetes mellitus; Z86.73 Personal history of transient ischemic attack (TIA), and cerebral infarction without residual deficits; Z99.2 Dependence on renal dialysis
CPT/HCPCS: 36415; 71045; 74176; 76604; 76942; 80048; 80053; 80074; 82306; 82962; 83690; 83880; 83970; 84100; 84484; 85007; 85027; 85610; 85730; 87040; 87081; 87205; 87426; 87493; 89051; 90935; 93005; 93306; 96365; 96366; 96368; 96372; G0378; J0696; J1642; J1815

== ENCOUNTER → 2022-12-20 | Outpatient (CLI) | payer MEDICARE, MEDICAID ==
[~2022-12-20] MED LIST changes: +ATOR-47 PO; +AZIT500T66 PO; +GAB100C PO; +VALS1TAB58 PO
[2022-12-20 13:28] LABS: Hematocrit 28.8 % (36.0-46.0); Hemoglobin 9.4 g/dL (12.2-16.2); Mean Corpuscular Hemoglobin 32.5 pg (28.0-32.0); Mean Corpuscular Hgb Conc. 32.8 g/dL (32.0-36.0); Mean Corpuscular Volume 98.9 fL (80.0-100.0); Red Blood Cells 2.91 10^6/uL (4.0-5.20); Red Cell Distribution Width 16.3 % (11.8-14.3); White Blood Cell 9.6 10^3/uL (4.4-10.8)
[2022-12-20 13:59] LABS: Band Neutrophils % (manual) 0; Basophils % (manual) 0 (0.0-2.0); Blast Cells 0; Metamyelocytes % 0; Myelocytes % 0; Promyelocytes % 0; Reactive Lymphocytes 0
[2022-12-20 14:19] LABS: Albumin 3.2 g/dL (3.4-5.0); Calcium 7.2 mg/dL (8.5-10.1); Potassium 3.7 mmol/L (3.5-5.1)
[2022-12-20 14:21] LABS: Eosinophils % (manual) 30 (0-7); Lymphocytes % (manual) 7 (10.0-50.0); Monocytes % (manual) 4 (0-12)
[2022-12-20 14:24] LABS: BUN/Creatinine Ratio 7.2; Bilirubin, Total 0.7 mg/dL (0.2-1.0); Total Protein 7.4 g/dL (6.4-8.2)
== END | disposition home or self-care (01) ==
LOC: LAB 13:08
PROVIDERS: ATTEND Internal Medicine
DX: E11.9 Type 2 diabetes mellitus without complications (principal); D64.9 Anemia, unspecified; J96.10 Chronic respiratory failure, unspecified whether with hypoxia or hypercapnia; I21.4 Non-ST elevation (NSTEMI) myocardial infarction
CPT/HCPCS: 36415; 80053; 83036; 84484; 85007; 85027

== ENCOUNTER 2022-12-23 11:37 | Inpatient (IN) | payer MEDICARE, MEDICAID ==
[~2022-12-23] VITALS: Ht 157.5 cm; Wt 166.9 kg
[~2022-12-23 11:37] MED LIST changes: -ATOR-47 PO; -GAB100C PO; -VALS1TAB58 PO
[2022-12-23] MEDS ORDERED: ONDANSETRON HCL 4 MG/2 ML VIAL IV ONE (12:00)
[2022-12-23] MEDS ORDERED: MORPHINE SULFATE 4 MG/ML SYR/VIAL IV ONE (12:00)
[2022-12-23 12:20] LABS: Hematocrit 28.2 % (36.0-46.0); Hemoglobin 9.2 g/dL (12.2-16.2); Mean Corpuscular Hemoglobin 32.4 pg (28.0-32.0); Mean Corpuscular Hgb Conc. 32.7 g/dL (32.0-36.0); Red Blood Cells 2.85 10^6/uL (4.0-5.20); Red Cell Distribution Width 16.6 % (11.8-14.3); White Blood Cell 7.8 10^3/uL (4.4-10.8)
[2022-12-23 12:37] LABS: Magnesium 2.4 mg/dL (1.6-2.6); Potassium 4.3 mmol/L (3.5-5.1)
[2022-12-23 12:39] LABS: BUN/Creatinine Ratio 8.7
[2022-12-23 12:43] LABS: Bilirubin, Total 0.7 mg/dL (0.2-1.0); Total Protein 7.2 g/dL (6.4-8.2)
[2022-12-23 12:55] LABS: Band Neutrophils % (manual) 0; Basophils % (manual) 0 (0.0-2.0); Blast Cells 0; Metamyelocytes % 0; Myelocytes % 0; Promyelocytes % 0; Reactive Lymphocytes 0
[2022-12-23] MEDS ORDERED: hydrALAZINE HCL 20 MG/ML VL IV ONE (15:00)
[2022-12-23 15:44] LABS: Eosinophils % (manual) 31 (0-7); Lymphocytes % (manual) 9 (10.0-50.0); Monocytes % (manual) 2 (0-12)
[2022-12-23] MEDS ORDERED: NITROGLYCERIN 0.4 MG SL TAB SL PRN (16:30)
[2022-12-23] MEDS ORDERED: ACETAMINOPHEN 325 MG TAB PO PRN (16:30)
[2022-12-23] MEDS ORDERED: MORPHINE SULFATE INJ 2 MG/ml SYRG IV PRN (16:30)
[2022-12-23] MEDS ORDERED: DOCUSATE SOD 100 MG CAP PO PRN (16:30)
[2022-12-23] MEDS ORDERED: ONDANSETRON HCL 4 MG/2 ML VIAL IV PRN (16:30)
[2022-12-23] MEDS ORDERED: VALS1TAB58 PO (16:46)
[2022-12-23] MEDS ORDERED: ATOR-47 PO (16:46)
[2022-12-23] MEDS ORDERED: GAB100C PO (16:46)
[2022-12-23] MEDS: CALCIUM ACETATE 667 MG CAP PO SCH (18:09)
[2022-12-23] MEDS ORDERED: DEXTROSE (50%) 50ML SYRG IV PRN (20:00)
[2022-12-23] MEDS: HYDROcodone-ACET 5/325MG TAB PO PRN (20:26)
[2022-12-23] MEDS: InsuLIN REG 1unit/0.01ml Soln (100units/ml) SC SCH (22:00)
[2022-12-23] MEDS: GABAPENTIN 100 MG CAP PO SCH (22:00)
[2022-12-23] MEDS: SODIUM CHLOR 0.9% PF (SALINE LOCK) 10ML VIAL/SYR IV SCH (22:14)
[2022-12-23] MEDS: ACCU-CHEK COMFORT CURVE STRIP VI SCH (22:22)
[2022-12-23] MEDS: LABETALOL HCL 200 MG TAB PO SCH (22:32)
[2022-12-23] MEDS: cloNIDine HCL 0.1 MG TAB PO SCH (22:33)
[2022-12-24] MEDS: HYDROcodone-ACET 5/325MG TAB PO PRN (02:00)
[2022-12-24] MEDS: SODIUM CHLOR 0.9% PF (SALINE LOCK) 10ML VIAL/SYR IV SCH ×3 (06:04→22:24)
[2022-12-24] MEDS: cloNIDine HCL 0.1 MG TAB PO SCH ×3 (06:22→22:24)
[2022-12-24] MEDS: GABAPENTIN 100 MG CAP PO SCH ×3 (06:22→22:23)
[2022-12-24] MEDS: ACCU-CHEK COMFORT CURVE STRIP VI SCH ×4 (06:32→22:18)
[2022-12-24] MEDS: InsuLIN REG 1unit/0.01ml Soln (100units/ml) SC SCH ×4 (06:33→22:00)
[2022-12-24 06:42] LABS: Hemoglobin 8.2 g/dL (12.2-16.2); White Blood Cell 9.1 10^3/uL (4.4-10.8)
[2022-12-24 06:46] LABS: Hematocrit 24.3 % (36.0-46.0); Mean Corpuscular Hemoglobin 33.7 pg (28.0-32.0); Mean Corpuscular Hgb Conc. 33.8 g/dL (32.0-36.0); Mean Corpuscular Volume 99.6 fL (80.0-100.0); Red Blood Cells 2.44 10^6/uL (4.0-5.20); Red Cell Distribution Width 15.7 % (11.8-14.3)
[2022-12-24 06:52] LABS: Basophils % (manual) 0 (0.0-2.0); Blast Cells 0; Metamyelocytes % 0; Myelocytes % 0; Promyelocytes % 0; Reactive Lymphocytes 0
[2022-12-24 07:01] LABS: Albumin 2.8 g/dL (3.4-5.0); BUN/Creatinine Ratio 8.9; Calcium 7.3 mg/dL (8.5-10.1); Potassium 4.7 mmol/L (3.5-5.1)
[2022-12-24 07:04] LABS: Bilirubin, Total 0.4 mg/dL (0.2-1.0); Total Protein 6.6 g/dL (6.4-8.2)
[2022-12-24 07:49] LABS: Band Neutrophils % (manual) 1; Eosinophils % (manual) 36 (0-7); Lymphocytes % (manual) 13 (10.0-50.0); Monocytes % (manual) 4 (0-12)
[2022-12-24] MEDS: ATORVASTATIN 20 MG TAB PO SCH (09:08)
[2022-12-24] MEDS: ASPirin 81 mg TAB PO SCH (09:08)
[2022-12-24] MEDS: LORazepam 0.5 MG TAB PO SCH (09:09)
[2022-12-24] MEDS: CITALOPRAM HYDROBR 20 MG TAB PO SCH (09:09)
[2022-12-24] MEDS: CALCIUM ACETATE 667 MG CAP PO SCH ×3 (09:09→17:40)
[2022-12-24] MEDS: LABETALOL HCL 200 MG TAB PO SCH ×2 (10:00→22:23)
[2022-12-24] MEDS ORDERED: PANTOPRAZOLE 40 MG/10 ML VIAL INJ IV SCH (10:00)
[2022-12-24] MEDS: VALSARTAN 80 MG TAB PO SCH (10:00)
[2022-12-24] MEDS ORDERED: levoFLOXacin 500MG 100 ML IV ONE (16:00)
[2022-12-25] MEDS: cloNIDine HCL 0.1 MG TAB PO SCH ×3 (06:09→23:23)
[2022-12-25] MEDS: GABAPENTIN 100 MG CAP PO SCH ×3 (06:10→23:23)
[2022-12-25] MEDS: SODIUM CHLOR 0.9% PF (SALINE LOCK) 10ML VIAL/SYR IV SCH ×3 (06:10→23:22)
[2022-12-25] MEDS: ACCU-CHEK COMFORT CURVE STRIP VI SCH ×4 (06:12→23:23)
[2022-12-25] MEDS: InsuLIN REG 1unit/0.01ml Soln (100units/ml) SC SCH ×4 (06:12→23:32)
[2022-12-25 08:00] LABS: Hematocrit 25.8 % (36.0-46.0); Hemoglobin 8.5 g/dL (12.2-16.2); Mean Corpuscular Hemoglobin 32.9 pg (28.0-32.0); Mean Corpuscular Hgb Conc. 32.9 g/dL (32.0-36.0); Red Blood Cells 2.58 10^6/uL (4.0-5.20); White Blood Cell 8.9 10^3/uL (4.4-10.8)
[2022-12-25] MEDS: CALCIUM ACETATE 667 MG CAP PO SCH ×3 (08:00→18:00)
[2022-12-25 08:13] LABS: Basophils % (manual) 0 (0.0-2.0); Blast Cells 0; Metamyelocytes % 0; Myelocytes % 0; Promyelocytes % 0; Reactive Lymphocytes 0
[2022-12-25] MEDS ORDERED: ADENOSINE 62 MG in GIVE UN-DILUTED 0 ML IV STA (08:19)
[2022-12-25 08:35] LABS: Albumin 2.8 g/dL (3.4-5.0); Calcium 6.9 mg/dL (8.5-10.1)
[2022-12-25 08:38] LABS: BUN/Creatinine Ratio 9.4; Bilirubin, Total 0.4 mg/dL (0.2-1.0); Total Protein 6.4 g/dL (6.4-8.2)
[2022-12-25 08:40] LABS: Band Neutrophils % (manual) 4; Eosinophils % (manual) 36 (0-7); Lymphocytes % (manual) 25 (10.0-50.0); Monocytes % (manual) 3 (0-12)
[2022-12-25 08:42] LABS: Potassium 5.8 mmol/L (3.5-5.1)
[2022-12-25] MEDS: ASPirin 81 mg TAB PO SCH (11:45)
[2022-12-25] MEDS: VALSARTAN 80 MG TAB PO SCH (11:45)
[2022-12-25] MEDS: LABETALOL HCL 200 MG TAB PO SCH ×2 (11:46→23:22)
[2022-12-25] MEDS: ATORVASTATIN 20 MG TAB PO SCH (11:46)
[2022-12-25] MEDS: LORazepam 0.5 MG TAB PO SCH (11:46)
[2022-12-25] MEDS: CITALOPRAM HYDROBR 20 MG TAB PO SCH (11:46)
[2022-12-25 11:51] VITALS: BP 153/79
[2022-12-25 13:00] VITALS: BP 153/79
[2022-12-25] MEDS ORDERED: hydrALAZINE HCL 20 MG/ML VL IV ONE (16:15)
[2022-12-25] MEDS ORDERED: NIFEdipine ER 30 MG TAB PO ONE (16:15)
[2022-12-25] MEDS ORDERED: hydrALAZINE HCL 20 MG/ML VL IV PRN (16:15)
[2022-12-25 16:39] VITALS: BP 203/97
[2022-12-25 17:53] VITALS: BP 144/68
[2022-12-25] MEDS ORDERED: EPOETIN ALFA-EPBX 4,000 UNIT/ML VIAL SC ONE (21:00)
[2022-12-25 22:00] VITALS: BP 135/67
[2022-12-26 05:00] VITALS: BP 96/59
[2022-12-26] MEDS: SODIUM CHLOR 0.9% PF (SALINE LOCK) 10ML VIAL/SYR IV SCH ×3 (05:38→22:35)
[2022-12-26] MEDS: GABAPENTIN 100 MG CAP PO SCH ×3 (05:39→22:44)
[2022-12-26] MEDS: cloNIDine HCL 0.1 MG TAB PO SCH ×3 (05:42→22:43)
[2022-12-26] MEDS: ACCU-CHEK COMFORT CURVE STRIP VI SCH ×4 (06:21→22:36)
[2022-12-26] MEDS: InsuLIN REG 1unit/0.01ml Soln (100units/ml) SC SCH ×4 (06:21→22:41)
[2022-12-26 07:28] LABS: INR 1.28 (0.9-1.15); Partial Thromboplastin Time 29.6 sec (24.6-33.4)
[2022-12-26 08:00] VITALS: BP 89/55
[2022-12-26 09:00] VITALS: BP_SYST 86; BP_SYST 89; BP_DIAS 47; BP_DIAS 55
[2022-12-26 09:46] LABS: Potassium 5.3 mmol/L (3.5-5.1)
[2022-12-26] MEDS: CALCIUM ACETATE 667 MG CAP PO SCH ×3 (09:52→17:55)
[2022-12-26] MEDS: ASPirin 81 mg TAB PO SCH (09:52)
[2022-12-26] MEDS: LORazepam 0.5 MG TAB PO SCH (09:52)
[2022-12-26] MEDS: ATORVASTATIN 20 MG TAB PO SCH (09:52)
[2022-12-26] MEDS: CITALOPRAM HYDROBR 20 MG TAB PO SCH (09:52)
[2022-12-26] MEDS: VALSARTAN 80 MG TAB PO SCH (09:54)
[2022-12-26] MEDS: NIFEdipine ER 30 MG TAB PO SCH (09:55)
[2022-12-26] MEDS: LABETALOL HCL 200 MG TAB PO SCH ×2 (09:55→22:42)
[2022-12-26 09:59] LABS: BUN/Creatinine Ratio 9.1; Calcium 6.8 mg/dL (8.5-10.1)
[2022-12-26 13:00] VITALS: BP 114/57
[2022-12-26 17:08] VITALS: BP 143/61
[2022-12-26 22:00] VITALS: BP 147/81
[2022-12-27] VITALS (11 sets, daily range): BP systolic 104–140; BP diastolic 2–81
[2022-12-27] MEDS: SODIUM CHLOR 0.9% PF (SALINE LOCK) 10ML VIAL/SYR IV SCH ×3 (05:54→22:52)
[2022-12-27] MEDS: GABAPENTIN 100 MG CAP PO SCH ×3 (05:55→22:52)
[2022-12-27] MEDS: cloNIDine HCL 0.1 MG TAB PO SCH ×3 (05:55→22:00)
[2022-12-27] MEDS: ACCU-CHEK COMFORT CURVE STRIP VI SCH ×4 (06:15→22:00)
[2022-12-27] MEDS: InsuLIN REG 1unit/0.01ml Soln (100units/ml) SC SCH ×4 (06:15→22:00)
[2022-12-27 07:24] LABS: Hematocrit 25.9 % (36.0-46.0); Hemoglobin 8.6 g/dL (12.2-16.2); Mean Corpuscular Hemoglobin 32.5 pg (28.0-32.0); Mean Corpuscular Hgb Conc. 33.3 g/dL (32.0-36.0); Mean Corpuscular Volume 97.7 fL (80.0-100.0); Red Blood Cells 2.65 10^6/uL (4.0-5.20); Red Cell Distribution Width 15.5 % (11.8-14.3); White Blood Cell 7.8 10^3/uL (4.4-10.8)
[2022-12-27 07:32] LABS: Band Neutrophils % (manual) 0; Basophils % (manual) 0 (0.0-2.0); Blast Cells 0; Metamyelocytes % 0; Myelocytes % 0; Promyelocytes % 0; Reactive Lymphocytes 0
[2022-12-27 07:39] LABS: INR 1.26 (0.9-1.15); Partial Thromboplastin Time 30.2 sec (24.6-33.4)
[2022-12-27] MEDS: CALCIUM ACETATE 667 MG CAP PO SCH ×3 (08:00→17:50)
[2022-12-27 08:14] LABS: BUN/Creatinine Ratio 9.1; Calcium 7.3 mg/dL (8.5-10.1); Potassium 4.9 mmol/L (3.5-5.1)
[2022-12-27] MEDS: CITALOPRAM HYDROBR 20 MG TAB PO SCH (09:51)
[2022-12-27] MEDS: ASPirin 81 mg TAB PO SCH (09:51)
[2022-12-27] MEDS: NIFEdipine ER 30 MG TAB PO SCH (09:52)
[2022-12-27] MEDS: LABETALOL HCL 200 MG TAB PO SCH ×2 (09:53→22:00)
[2022-12-27] MEDS: LORazepam 0.5 MG TAB PO SCH (09:53)
[2022-12-27] MEDS: VALSARTAN 80 MG TAB PO SCH (09:53)
[2022-12-27] MEDS: ATORVASTATIN 20 MG TAB PO SCH (09:54)
[2022-12-27 10:21] LABS: Eosinophils % (manual) 28 (0-7); Lymphocytes % (manual) 7 (10.0-50.0); Monocytes % (manual) 7 (0-12)
[2022-12-27] MEDS ORDERED: VERAPAMIL 2.5MG/ML INJ 2ML VIAL IV ONE (12:52)
[2022-12-27] MEDS ORDERED: ANGIOMAX 250 MG VIAL IV ONE (12:52)
[2022-12-27] MEDS ORDERED: HEPARIN SODIUM (PORCINE) 5000 UNITS/ML 1ML VIAL ONE (12:52)
[2022-12-27] MEDS ORDERED: fentaNYL CITRATE 100 MCG/2 ML VL ONE (12:53)
[2022-12-27] MEDS ORDERED: MIDAZOLAM HCL 2MG/2ML 2ml VIAL (1mg/ml) ONE (12:53)
[2022-12-27] MEDS ORDERED: SODIUM CHL 0.9% 0 ML ONE (12:53)
[2022-12-27] MEDS ORDERED: LIDOCAINE 2%HCL (LOCAL ANESTH.) INJ 10ml MDV ONE (14:50)
[2022-12-27] MEDS ORDERED: SODIUM CHL 0.9% 1000 ML BAG XX ONE (15:45)
[2022-12-28 05:25] VITALS: BP 133/67
[2022-12-28] MEDS: SODIUM CHLOR 0.9% PF (SALINE LOCK) 10ML VIAL/SYR IV SCH (05:45)
[2022-12-28] MEDS: cloNIDine HCL 0.1 MG TAB PO SCH (05:46)
[2022-12-28] MEDS: InsuLIN REG 1unit/0.01ml Soln (100units/ml) SC SCH ×2 (05:46→11:30)
[2022-12-28] MEDS: GABAPENTIN 100 MG CAP PO SCH (05:46)
[2022-12-28] MEDS: ACCU-CHEK COMFORT CURVE STRIP VI SCH ×2 (05:47→12:00)
[2022-12-28 08:15] VITALS: BP 131/61
[2022-12-28] MEDS: CALCIUM ACETATE 667 MG CAP PO SCH ×2 (08:39→12:01)
[2022-12-28 09:29] VITALS: BP 131/61
[2022-12-28] MEDS: ASPirin 81 mg TAB PO SCH (10:39)
[2022-12-28] MEDS: ATORVASTATIN 20 MG TAB PO SCH (10:39)
[2022-12-28] MEDS: NIFEdipine ER 30 MG TAB PO SCH (10:39)
[2022-12-28] MEDS: LORazepam 0.5 MG TAB PO SCH (10:41)
[2022-12-28] MEDS: VALSARTAN 80 MG TAB PO SCH (10:41)
[2022-12-28] MEDS: CITALOPRAM HYDROBR 20 MG TAB PO SCH (10:41)
[2022-12-28] MEDS: LABETALOL HCL 200 MG TAB PO SCH (10:42)
[2022-12-28 12:04] VITALS: BP 131/61
== END 2022-12-28 13:51 | disposition home or self-care (01) | DRG 280 ==
LOC: EDBD 11:37 → ER 11:37 → TELE 16:46 → TELE-WESTW 12-25 11:37
PROVIDERS: ADMIT Nurse Practitioner Family; ATTEND Family Medicine
PROC: 5A1D70Z Performance of Urinary Filtration, Intermittent, Less than 6 Hours Per Day (ICD-10-PCS; 2022-12-25)
PROC: B2111ZZ Fluoroscopy of Multiple Coronary Arteries using Low Osmolar Contrast (ICD-10-PCS; principal; 2022-12-27)
PROC: 5A1D70Z Performance of Urinary Filtration, Intermittent, Less than 6 Hours Per Day (ICD-10-PCS; 2022-12-27)
DX: I21.4 Non-ST elevation (NSTEMI) myocardial infarction (principal); I50.33 Acute on chronic diastolic (congestive) heart failure; N18.6 End stage renal disease; J96.01 Acute respiratory failure with hypoxia; I13.2 Hypertensive heart and chronic kidney disease with heart failure and with stage 5 chronic kidney disease, or end stage renal disease; E87.8 Other disorders of electrolyte and fluid balance, not elsewhere classified; E11.22 Type 2 diabetes mellitus with diabetic chronic kidney disease; F32.A Depression, unspecified; E78.5 Hyperlipidemia, unspecified; Z20.822 Contact with and (suspected) exposure to COVID-19; D63.8 Anemia in other chronic diseases classified elsewhere; I95.3 Hypotension of hemodialysis; E66.9 Obesity, unspecified; I25.10 Atherosclerotic heart disease of native coronary artery without angina pectoris; I25.2 Old myocardial infarction; Z79.4 Long term (current) use of insulin; Z99.2 Dependence on renal dialysis; Z82.49 Family history of ischemic heart disease and other diseases of the circulatory system; Z83.3 Family history of diabetes mellitus; Z86.73 Personal history of transient ischemic attack (TIA), and cerebral infarction without residual deficits; Z68.29 Body mass index [BMI] 29.0-29.9, adult
CPT/HCPCS: 36415; 70450; 71045; 71250; 76604; 78452; 80048; 80053; 80061; 82962; 83735; 84443; 84484; 85007; 85027; 85610; 85730; 86850; 86900; 86901; 87426; 90935; 93005; 93017; 96374; 96375; C9113; G0378; J0153; J1815; J1956; J2001; J2250; J2405

== ENCOUNTER 2023-01-15 13:18 | Emergency (ER) | payer MEDICARE, MEDICAID ==
[~2023-01-15] VITALS: Ht 162.6 cm; Wt 70.0 kg
[~2023-01-15 13:18] MED LIST changes: -AMLO-496 PO; +ATOR-47 PO; -ATOR10TA52 PO; -AZIT500T66 PO; +GAB100C PO; -LISI20TA28 PO; +VALS1TAB58 PO
[2023-01-15 13:33] VITALS: BP 211/108
[2023-01-15] MEDS ORDERED: hydrALAZINE HCL 20 MG/ML VL IV ONE (14:15)
[2023-01-15 14:19] LABS: Hemoglobin 9.4 g/dL (12.2-16.2); Mean Corpuscular Hemoglobin 31.9 pg (28.0-32.0); Mean Corpuscular Hgb Conc. 33.6 g/dL (32.0-36.0); Red Blood Cells 2.95 10^6/uL (4.0-5.20)
[2023-01-15 14:38] LABS: Albumin 3.4 g/dL (3.4-5.0); Calcium 7.4 mg/dL (8.5-10.1); Magnesium 2.3 mg/dL (1.6-2.6); Potassium 3.7 mmol/L (3.5-5.1)
[2023-01-15 14:43] LABS: Bilirubin, Total 0.8 mg/dL (0.2-1.0); Total Protein 7.4 g/dL (6.4-8.2)
[2023-01-15 14:44] LABS: Band Neutrophils % (manual) 0; Basophils % (manual) 0 (0.0-2.0); Blast Cells 0; Metamyelocytes % 0; Myelocytes % 0; Promyelocytes % 0; Reactive Lymphocytes 0
[2023-01-15 16:22] LABS: Eosinophils % (manual) 25 (0-7); Lymphocytes % (manual) 8 (10.0-50.0); Monocytes % (manual) 7 (0-12)
== END 2023-01-15 20:30 | disposition left against medical advice (07) ==
LOC: ER 13:18 → EDBD 13:18 → ER 20:30
DX: J81.1 Chronic pulmonary edema (principal); R77.8 Other specified abnormalities of plasma proteins; E11.22 Type 2 diabetes mellitus with diabetic chronic kidney disease; I13.2 Hypertensive heart and chronic kidney disease with heart failure and with stage 5 chronic kidney disease, or end stage renal disease; N18.6 End stage renal disease; I50.9 Heart failure, unspecified; E78.5 Hyperlipidemia, unspecified; Z99.2 Dependence on renal dialysis
CPT/HCPCS: 36415; 71045; 80053; 82962; 83735; 84484; 85007; 85027; 93005

== ENCOUNTER → 2023-02-13 | Outpatient (CLI) | payer MEDICARE, MEDICAID ==
[2023-02-13 10:57] LABS: Hematocrit 32.1 % (36.0-46.0); Hemoglobin 10.2 g/dL (12.2-16.2); Mean Corpuscular Hemoglobin 32.1 pg (28.0-32.0); Mean Corpuscular Hgb Conc. 31.8 g/dL (32.0-36.0); Mean Corpuscular Volume 101.1 fL (80.0-100.0); Red Blood Cells 3.18 10^6/uL (4.0-5.20); Red Cell Distribution Width 18.1 % (11.8-14.3); White Blood Cell 7.2 10^3/uL (4.4-10.8)
[2023-02-13 11:34] LABS: Albumin 3.3 g/dL (3.4-5.0); Potassium 4.5 mmol/L (3.5-5.1); Uric Acid 3.8 mg/dL (2.6-6.0)
[2023-02-13 11:38] LABS: BUN/Creatinine Ratio 6.7 (10.0-20.0); Bilirubin, Direct 0.3 mg/dL (0-0.2); Bilirubin, Total 0.6 mg/dL (0.2-1.0); Total Protein 7.2 g/dL (6.4-8.2)
[2023-02-13 11:52] LABS: Basophils % (manual) 0 (0.0-2.0); Blast Cells 0; Metamyelocytes % 0; Myelocytes % 0; Promyelocytes % 0; Reactive Lymphocytes 0
[2023-02-13 15:01] LABS: Band Neutrophils % (manual) 2; Eosinophils % (manual) 35 (0-7); Lymphocytes % (manual) 9 (10.0-50.0); Monocytes % (manual) 1 (0-12)
== END | disposition home or self-care (01) ==
LOC: LAB 10:43
PROVIDERS: ATTEND Specialist
DX: E11.8 Type 2 diabetes mellitus with unspecified complications (principal); I10 Essential (primary) hypertension; R94.5 Abnormal results of liver function studies; D64.9 Anemia, unspecified; E78.5 Hyperlipidemia, unspecified; E03.9 Hypothyroidism, unspecified
CPT/HCPCS: 36415; 80048; 80061; 80076; 83036; 84550; 85007; 85027

== ENCOUNTER 2023-02-22 14:10 | Inpatient (IN) | payer MEDICARE, MEDICAID ==
[~2023-02-22] VITALS: Ht 162.6 cm; Wt 74.8 kg
[2023-02-22] MEDS ORDERED: SODIUM CHLORIDE 0.9% 1,000 ML IV ONE ×2 (14:30)
[2023-02-22] MEDS ORDERED: DOPamine 1600MCG/ML D5W 250 ML IV ONE ×2 (14:45→18:50)
[2023-02-22] MEDS ORDERED: NOREPINEPHRINE 8 MG/250ML KIT 250 ML IV SCH (14:45)
[2023-02-22 15:13] LABS: Hemoglobin 9.7 g/dL (12.2-16.2); White Blood Cell 7.5 10^3/uL (4.4-10.8)
[2023-02-22 15:14] LABS: Hematocrit 30.2 % (36.0-46.0); Mean Corpuscular Hemoglobin 32.8 pg (28.0-32.0); Mean Corpuscular Hgb Conc. 32.3 g/dL (32.0-36.0); Mean Corpuscular Volume 101.6 fL (80.0-100.0); Red Blood Cells 2.97 10^6/uL (4.0-5.20); Red Cell Distribution Width 17.1 % (11.8-14.3)
[2023-02-22 15:24] LABS: Basophils % (manual) 0 (0.0-2.0); Blast Cells 0; Metamyelocytes % 0; Myelocytes % 0; Promyelocytes % 0; Reactive Lymphocytes 0
[2023-02-22 15:27] LABS: Albumin 3.2 g/dL (3.4-5.0); Calcium 6.2 mg/dL (8.5-10.1); Potassium 4.8 mmol/L (3.5-5.1)
[2023-02-22 15:31] LABS: BUN/Creatinine Ratio 9.2 (10.0-20.0); Bilirubin, Total 0.6 mg/dL (0.2-1.0); Total Protein 6.2 g/dL (6.4-8.2)
[2023-02-22] MEDS ORDERED: ENOXAPARIN SOD 100 MG/1 ML SYRINGE SC ONE (16:00)
[2023-02-22] MEDS ORDERED: LORazepam 2MG/ML-1ML VIAL IV ONE (16:30)
[2023-02-22 16:35] LABS: Band Neutrophils % (manual) 1; Eosinophils % (manual) 26 (0-7); Lymphocytes % (manual) 4 (10.0-50.0); Monocytes % (manual) 4 (0-12)
[2023-02-22] MEDS ORDERED: ACETAMINOPHEN 325 MG TAB PO ONE (18:00)
[2023-02-22] MEDS ORDERED: DOPamine 1600MCG/ML D5W 250 ML IV SCH (19:00)
[2023-02-22] MEDS ORDERED: ONDANSETRON HCL 4 MG/2 ML VIAL IV PRN ×2 (21:00→21:15)
[2023-02-22] MEDS ORDERED: ACETAMINOPHEN 325 MG TAB PO PRN (21:15)
[2023-02-22] MEDS ORDERED: LORazepam 2MG/ML-1ML VIAL IV PRN (21:15)
[2023-02-22] MEDS ORDERED: DOCUSATE SOD 100 MG CAP PO PRN (21:15)
[2023-02-22] MEDS ORDERED: DEXTROSE (50%) 50ML SYRG IV PRN (21:15)
[2023-02-22 21:24] VITALS: BP 137/77
[2023-02-22] MEDS: HYDROcodone-ACET 5/325MG TAB PO PRN (21:26)
[2023-02-22] MEDS ORDERED: ALBUTEROL SULF 2.5 MG/0.5ML(0.5%) NEB SOLN NEB PRN (21:30)
[2023-02-22] MEDS: HEPARIN SODIUM (PORCINE) 5000 UNITS/ML 1ML VIAL SC SCH (22:00)
[2023-02-22] MEDS: CARVEDILOL 3.125 MG TAB PO SCH (22:04)
[2023-02-22] MEDS: ATORVASTATIN 20 MG TAB PO SCH (22:04)
[2023-02-22] MEDS: SODIUM CHLOR 0.9% PF (SALINE LOCK) 10ML VIAL/SYR IV SCH (22:04)
[2023-02-22] MEDS: InsuLIN REG 1unit/0.01ml Soln (100units/ml) SC SCH (22:08)
[2023-02-22] MEDS: ACCU-CHEK COMFORT CURVE STRIP VI SCH (22:08)
[2023-02-22] MEDS: FAMOTIDINE (10MG/ML) 2ML VL IV SCH (22:20)
[2023-02-22] MEDS ORDERED: MORPHINE SULFATE INJ 2 MG/ml SYRG IV PRN (23:00)
[2023-02-22] MEDS ORDERED: NITROGLYCERIN 0.4 MG SL TAB SL PRN (23:00)
[2023-02-23] MEDS: SODIUM CHLOR 0.9% PF (SALINE LOCK) 10ML VIAL/SYR IV SCH ×3 (06:03→21:50)
[2023-02-23 06:04] LABS: Basophils # (auto) 0.1 10 ^3/uL (0-0.2); Basophils % (auto) 1.1 % (0.0-2.0); Eosinophils # (auto) 0.4 10 ^3/uL (0-0.8); Eosinophils % (auto) 6.3 % (0.0-7.0); Hematocrit 28.1 % (36.0-46.0); Hemoglobin 9.3 g/dL (12.2-16.2); Lymphocytes % (auto) 13.4 % (10.0-50.0); Mean Corpuscular Hemoglobin 33.2 pg (28.0-32.0); Mean Corpuscular Volume 100.7 fL (80.0-100.0); Monocytes # (auto) 0.6 10 ^3/uL (0-1.3); Monocytes % (auto) 7.9 % (0.0-12.0); Neutrophils # (auto) 5.1 10 ^3/uL (1.6-8.6); Neutrophils % (auto) 71.3 % (37.0-80.0); Red Blood Cells 2.79 10^6/uL (4.0-5.20); White Blood Cell 7.2 10^3/uL (4.4-10.8)
[2023-02-23 06:42] LABS: BUN/Creatinine Ratio 9.6 (10.0-20.0); Calcium 6.5 mg/dL (8.5-10.1)
[2023-02-23 06:54] LABS: Albumin 2.9 g/dL (3.4-5.0); Bilirubin, Total 0.6 mg/dL (0.2-1.0); Total Protein 6.7 g/dL (6.4-8.2)
[2023-02-23] MEDS: InsuLIN REG 1unit/0.01ml Soln (100units/ml) SC SCH ×4 (06:55→22:06)
[2023-02-23] MEDS: ACCU-CHEK COMFORT CURVE STRIP VI SCH ×4 (06:55→22:05)
[2023-02-23] MEDS ORDERED: SODIUM CHL 0.9% 1000 ML BAG XX ONE (07:00)
[2023-02-23] MEDS: SEVELAMER 800 MG TAB PO SCH ×3 (08:18→18:08)
[2023-02-23] MEDS: CALCIUM ACETATE 667 MG CAP PO SCH ×3 (08:18→18:08)
[2023-02-23] MEDS: CARVEDILOL 3.125 MG TAB PO SCH ×2 (10:00→21:50)
[2023-02-23] MEDS: HEPARIN SODIUM (PORCINE) 5000 UNITS/ML 1ML VIAL SC SCH ×2 (10:00→22:40)
[2023-02-23] MEDS: FAMOTIDINE (10MG/ML) 2ML VL IV SCH (10:00)
[2023-02-23] MEDS ORDERED: MIDODRINE HCL 10 MG TAB PO ONE (10:00)
[2023-02-23] MEDS: B-COMPLEX W/ C & FOLIC ACID(NEPHROVITE TAB) PO SCH (10:00)
[2023-02-23] MEDS: ASPirin 81 mg TAB PO SCH (10:00)
[2023-02-23] MEDS ORDERED: SEVE800T8 PO (11:04)
[2023-02-23] MEDS ORDERED: NIFE1TAB30 PO (11:04)
[2023-02-23] MEDS ORDERED: FERR1TAB17 PO (11:04)
[2023-02-23 13:00] VITALS: BP 161/88
[2023-02-23 16:54] VITALS: BP 180/84
[2023-02-23] MEDS: hydrALAZINE HCL 20 MG/ML VL IV PRN ×2 (16:59→21:49)
[2023-02-23] MEDS ORDERED: EPOETIN ALFA-EPBX 10,000 UNIT/1ML VIAL SC ONE (21:00)
[2023-02-23] MEDS: ATORVASTATIN 20 MG TAB PO SCH (21:50)
[2023-02-23 22:00] VITALS: BP 161/77
[2023-02-24] MEDS: HYDROcodone-ACET 5/325MG TAB PO PRN (04:12)
[2023-02-24 04:45] VITALS: BP 166/88
[2023-02-24] MEDS: ACCU-CHEK COMFORT CURVE STRIP VI SCH ×3 (05:50→11:30)
[2023-02-24] MEDS: InsuLIN REG 1unit/0.01ml Soln (100units/ml) SC SCH ×3 (05:50→11:30)
[2023-02-24] MEDS: SODIUM CHLOR 0.9% PF (SALINE LOCK) 10ML VIAL/SYR IV SCH (05:50)
[2023-02-24] MEDS: hydrALAZINE HCL 20 MG/ML VL IV PRN ×2 (05:50→12:33)
[2023-02-24] MEDS: SEVELAMER 800 MG TAB PO SCH ×2 (08:35→12:34)
[2023-02-24] MEDS: CALCIUM ACETATE 667 MG CAP PO SCH ×2 (08:35→12:34)
[2023-02-24 09:00] VITALS: BP 134/71
[2023-02-24] MEDS ORDERED: HEPARIN SODIUM (PORCINE) 5000 UNITS/ML 1ML VIAL ONE (09:46)
[2023-02-24] MEDS: FAMOTIDINE (10MG/ML) 2ML VL IV SCH (10:01)
[2023-02-24] MEDS: ASPirin 81 mg TAB PO SCH (10:01)
[2023-02-24] MEDS: B-COMPLEX W/ C & FOLIC ACID(NEPHROVITE TAB) PO SCH (10:01)
[2023-02-24] MEDS: CARVEDILOL 3.125 MG TAB PO SCH (10:02)
[2023-02-24] MEDS: HEPARIN SODIUM (PORCINE) 5000 UNITS/ML 1ML VIAL SC SCH (10:07)
[2023-02-24 12:30] VITALS: BP 177/84
[2023-02-24 13:37] LABS: Hepatitis A Ab IgM Negative
[2023-02-24 13:38] LABS: Hepatitis B Core IgM Negative; Hepatitis C Antibody Negative (Negative)
[2023-02-24 13:43] VITALS: BP 177/84
[2023-02-25] MEDS ORDERED: SODIUM CHL 0.9% 1000 ML BAG XX ONE (07:00)
[2023-02-25] MEDS ORDERED: EPOETIN ALFA-EPBX 10,000 UNIT/1ML VIAL SC ONE (21:00)
== END 2023-02-24 14:30 | disposition home or self-care (01) | DRG 280 ==
LOC: EDBD 14:10 → ER 14:10 → TELE 22:55 → TELE-EAST 02-23 09:48
PROVIDERS: ADMIT Nurse Practitioner Family; ATTEND Family Medicine
PROC: 5A1D70Z Performance of Urinary Filtration, Intermittent, Less than 6 Hours Per Day (ICD-10-PCS; principal; 2023-02-23)
DX: I13.2 Hypertensive heart and chronic kidney disease with heart failure and with stage 5 chronic kidney disease, or end stage renal disease (principal); I21.A1 Myocardial infarction type 2; I50.33 Acute on chronic diastolic (congestive) heart failure; J96.01 Acute respiratory failure with hypoxia; N18.6 End stage renal disease; I16.1 Hypertensive emergency; I25.10 Atherosclerotic heart disease of native coronary artery without angina pectoris; D63.1 Anemia in chronic kidney disease; E11.22 Type 2 diabetes mellitus with diabetic chronic kidney disease; E78.00 Pure hypercholesterolemia, unspecified; E87.8 Other disorders of electrolyte and fluid balance, not elsewhere classified; F32.A Depression, unspecified; G40.909 Epilepsy, unspecified, not intractable, without status epilepticus; Z83.3 Family history of diabetes mellitus; Z82.49 Family history of ischemic heart disease and other diseases of the circulatory system; I25.2 Old myocardial infarction; Z99.2 Dependence on renal dialysis; I95.2 Hypotension due to drugs; T46.5X5A Adverse effect of other antihypertensive drugs, initial encounter
CPT/HCPCS: 36415; 71045; 80053; 80074; 82962; 83880; 84484; 85007; 85025; 85027; 86850; 86900; 86901; 87081; 90935; 93005; 96365; 96366; 96372; 96375; 99291; G0378; J1642; J1815; J2405; J3490

== ENCOUNTER → 2023-08-05 | Outpatient (CLI) | payer MEDICARE, MEDICAID ==
[~2023-08-05] MED LIST changes: -ALBUAER3 IN; +ASPI-736 PO; -ASPI1CHW15 PO; -BUME1TAB3 PO; -CALC667C5 PO; +FERR1TAB17 PO; +LORA-1121 PO; -LORA0.5T20 PO; +NIFE1TAB30 PO; +SEVE800T8 PO
== END | disposition home or self-care (01) ==
LOC: LAB 13:39
PROVIDERS: ATTEND Internal Medicine
DX: R19.7 Diarrhea, unspecified (principal)
CPT/HCPCS: 82270; 87045; 87177; 87427; 87493

== ENCOUNTER 2023-09-30 14:25 | Inpatient (IN) | payer MEDICARE, MEDICAID ==
[~2023-09-30] VITALS: Ht 160 cm; Wt 70.3 kg
[2023-09-30 15:41] LABS: Eosinophils # (auto) 0.2 10 ^3/uL (0-0.8); Lymphocytes # (auto) 0.2 10 ^3/uL (0.4-5.4); Monocytes # (auto) 0.4 10 ^3/uL (0-1.3)
[2023-09-30 15:43] LABS: Basophils # (auto) 0 10 ^3/uL (0-0.2); Basophils % (auto) 0.6 % (0.0-2.0); Eosinophils % (auto) 2.8 % (0.0-7.0); Hematocrit 34.2 % (36.0-46.0); Mean Corpuscular Hemoglobin 32.9 pg (28.0-32.0); Mean Corpuscular Hgb Conc. 32.1 g/dL (32.0-36.0); Mean Corpuscular Volume 102.4 fL (80.0-100.0); Monocytes % (auto) 5.8 % (0.0-12.0); Neutrophils # (auto) 5.8 10 ^3/uL (1.6-8.6); Neutrophils % (auto) 87.8 % (37.0-80.0); Red Blood Cells 3.34 10^6/uL (4.0-5.20); Red Cell Distribution Width 17.1 % (11.8-14.3); White Blood Cell 6.6 10^3/uL (4.4-10.8)
[2023-09-30 16:06] LABS: Alanine Aminotransferase 15 U/L (7-40); Alkaline Phosphatase 117 U/L (46-116); Anion Gap 12 (5-15); Aspartate Aminotransferase 12 U/L (13-40); BUN/Creatinine Ratio 9.9 (10.0-20.0); Bilirubin, Total 0.6 mg/dL (0.2-1.0); Calcium 8.3 mg/dL (8.5-10.1); Carbon Dioxide 22 mmol/L (20-30); Chloride 102 mmol/L (98-107); Glucose 84 mg/dL (74-106); Sodium 136 mmol/L (136-145); Total Protein 7.1 g/dL (5.7-8.2)
[2023-09-30 16:11] LABS: Blood Urea Nitrogen 83 mg/dL (9-23); Potassium 5.9 mmol/L (3.5-5.1)
[2023-09-30 16:34] VITALS: PULSE 78; RESP 20; O2SAT 95
[2023-09-30] MEDS ORDERED: SODIUM BICARBONATE 8.4% INJ 50ML SYRINGE IV ONE (17:00)
[2023-09-30] MEDS ORDERED: ALBUTEROL SULF 2.5 MG/0.5ML(0.5%) NEB SOLN NEB ONE (17:00)
[2023-09-30] MEDS ORDERED: MORPHINE SULFATE 4 MG/ML SYR/VIAL IV ONE (17:00)
[2023-09-30] MEDS ORDERED: cefTRIAXone 1GM/50ML D5W 50 ML IV ONE (17:00)
[2023-09-30] MEDS ORDERED: CALCIUM GLUC 1,000mg/50ml-NS 50 ML IV ONE (17:00)
[2023-09-30] MEDS ORDERED: ONDANSETRON HCL 4 MG/2 ML VIAL IV ONE (17:00)
[2023-09-30 19:22] VITALS: PULSE 82; RESP 22; O2SAT 92
[2023-09-30] MEDS ORDERED: FUROSEMIDE 100 MG/10ML VIAL IV ONE (19:30)
[2023-09-30] MEDS ORDERED: NITROGLYCERIN 0.4 MG SL TAB SL PRN (19:30)
[2023-09-30] MEDS ORDERED: MORPHINE SULFATE INJ 2 MG/ml SYRG IV PRN (19:30)
[2023-09-30] MEDS ORDERED: ONDANSETRON HCL 4 MG/2 ML VIAL IV PRN (19:30)
[2023-09-30] MEDS ORDERED: DOCUSATE SOD 100 MG CAP PO PRN (19:30)
[2023-09-30] MEDS ORDERED: DEXTROSE (50%) 50ML SYRG IV PRN (19:30)
[2023-09-30] MEDS ORDERED: IPRATROPIUM BROM 0.5 MG/2.5ML INH SOL NEB PRN (19:45)
[2023-09-30] MEDS ORDERED: ALBUTEROL SULF 2.5 MG/0.5ML(0.5%) NEB SOLN NEB PRN (19:45)
[2023-09-30 19:54] VITALS: BP 160/78; PULSE 75; RESP 18; TEMP 98.3; O2SAT 98
[2023-09-30] MEDS: ACCU-CHEK COMFORT CURVE STRIP VI SCH (22:38)
[2023-09-30] MEDS: InsuLIN REG 1unit/0.01ml Soln (100units/ml) SC SCH (22:39)
[2023-09-30] MEDS: cloNIDine HCL 0.1 MG TAB PO SCH (22:43)
[2023-09-30] MEDS: LABETALOL HCL 200 MG TAB PO SCH (23:05)
[2023-10-01] VITALS (10 sets, daily range): BP systolic 158–179; BP diastolic 56–88; PULSE 70–90; RESP 18–22; TEMP 98.5–99.7; O2SAT 92–99
[2023-10-01] MEDS ORDERED: DEXTROSE (50%) 50ML SYRG IV ONE (00:15)
[2023-10-01] MEDS ORDERED: InsuLIN REG 1unit/0.01ml Soln (100units/ml) IV ONE (00:15)
[2023-10-01] MEDS ORDERED: CALCIUM CHL 100MG/ML 1,000 MG in D5W 5% 100 ML IV ONE (00:15)
[2023-10-01] MEDS ORDERED: FUROSEMIDE 20 MG/2 ML VIAL IV ONE (00:15)
[2023-10-01] MEDS ORDERED: SODIUM ZIRCONIUM CYCL 10 GM PAK PO ONE (00:15)
[2023-10-01] MEDS ORDERED: CALCIUM GLUC 1,000mg/50ml-NS 50 ML IV ONE ×2 (00:38→01:15)
[2023-10-01] MEDS ORDERED: SODIUM CHL 0.9% 1000 ML BAG XX ONE (02:45)
[2023-10-01 05:29] LABS: Basophils # (auto) 0.1 10 ^3/uL (0-0.2); Eosinophils # (auto) 0.1 10 ^3/uL (0-0.8); Hematocrit 32.2 % (36.0-46.0); Lymphocytes # (auto) 0.3 10 ^3/uL (0.4-5.4); Monocytes # (auto) 0.5 10 ^3/uL (0-1.3); Red Cell Distribution Width 16.7 % (11.8-14.3)
[2023-10-01 05:31] LABS: Basophils % (auto) 1.1 % (0.0-2.0); Eosinophils % (auto) 1.2 % (0.0-7.0); Hemoglobin 10.3 g/dL (12.2-16.2); Lymphocytes % (auto) 4.8 % (10.0-50.0); Mean Corpuscular Hemoglobin 32.9 pg (28.0-32.0); Mean Corpuscular Volume 102.8 fL (80.0-100.0); Monocytes % (auto) 8.2 % (0.0-12.0); Neutrophils # (auto) 4.6 10 ^3/uL (1.6-8.6); Neutrophils % (auto) 84.7 % (37.0-80.0); Red Blood Cells 3.13 10^6/uL (4.0-5.20); White Blood Cell 5.5 10^3/uL (4.4-10.8)
[2023-10-01 05:48] LABS: Alanine Aminotransferase 12 U/L (7-40); Albumin 3.8 g/dL (3.2-4.8); Alkaline Phosphatase 101 U/L (46-116); Anion Gap 13 (5-15); Aspartate Aminotransferase < 8 U/L (13-40); BUN/Creatinine Ratio 9.8 (10.0-20.0); Bilirubin, Total 0.5 mg/dL (0.2-1.0); Calcium 8.3 mg/dL (8.5-10.1); Carbon Dioxide 21 mmol/L (20-30); Chloride 101 mmol/L (98-107); Potassium 5.5 mmol/L (3.5-5.1); Sodium 135 mmol/L (136-145)
[2023-10-01 05:49] LABS: Total Protein 6.7 g/dL (5.7-8.2)
[2023-10-01 06:00] LABS: Blood Urea Nitrogen 88 mg/dL (9-23); Glucose 31 mg/dL (74-106)
[2023-10-01] MEDS: InsuLIN REG 1unit/0.01ml Soln (100units/ml) SC SCH ×4 (09:01→22:18)
[2023-10-01] MEDS: ACCU-CHEK COMFORT CURVE STRIP VI SCH ×4 (09:01→21:46)
[2023-10-01] MEDS: cefTRIAXone 1GM/50ML D5W 50 ML IV SCH (09:08)
[2023-10-01] MEDS: SEVELAMER 800 MG TAB PO SCH ×3 (09:43→18:28)
[2023-10-01] MEDS: FUROSEMIDE 20 MG/2 ML VIAL IV SCH ×2 (09:43→18:29)
[2023-10-01] MEDS: cloNIDine HCL 0.1 MG TAB PO SCH ×3 (09:44→21:36)
[2023-10-01] MEDS: CITALOPRAM HYDROBR 20 MG TAB PO SCH (11:18)
[2023-10-01] MEDS: ATORVASTATIN 20 MG TAB PO SCH (11:18)
[2023-10-01] MEDS: ASPirin-EC 81 mg tab PO SCH (11:18)
[2023-10-01] MEDS: LABETALOL HCL 200 MG TAB PO SCH ×2 (11:22→21:37)
[2023-10-01 14:05] LABS: COVID19 ANTIGEN SOFIA FIA POSITIVE (NEGATIVE)
[2023-10-01 14:09] LABS: Rapid Influenza A Negative (Negative); Rapid Influenza B Negative (Negative)
[2023-10-01 15:05] LABS: INR 1.29 (0.9-1.15); Partial Thromboplastin Time 34.2 SEC (24.5-34.5); Prothrombin Time 13.3 sec (9.3-11.8)
[2023-10-01] MEDS ORDERED: REMDESIVIR PER PHARMACY 0 ML IV SCH (15:15)
[2023-10-01] MEDS ORDERED: LABE200T7 PO (17:14)
[2023-10-01] MEDS ORDERED: REMDESIVIR 200 MG in NS 210ml LOADING DOSE ADULT IV ONE (18:00)
[2023-10-01] MEDS: NIFEdipine ER 30 MG TAB PO SCH (18:29)
[2023-10-01] MEDS: ASCORBIC ACID 500 MG TAB PO SCH (21:37)
[2023-10-01] MEDS ORDERED: OSELTAMIVIR 30 MG CAP PO SCH (22:00)
[2023-10-01] MEDS: ACETAMINOPHEN 325 MG TAB PO PRN (23:53)
[2023-10-02] VITALS (9 sets, daily range): BP systolic 102–141; BP diastolic 44–77; PULSE 50–74; RESP 16–22; TEMP 97.5–98.9; O2SAT 92–99
[2023-10-02] MEDS: FUROSEMIDE 20 MG/2 ML VIAL IV SCH (05:42)
[2023-10-02] MEDS: cloNIDine HCL 0.1 MG TAB PO SCH ×3 (06:00→21:35)
[2023-10-02] MEDS: InsuLIN REG 1unit/0.01ml Soln (100units/ml) SC SCH ×4 (06:36→22:25)
[2023-10-02] MEDS: ACCU-CHEK COMFORT CURVE STRIP VI SCH ×4 (06:36→21:37)
[2023-10-02 06:41] LABS: Basophils # (auto) 0.1 10 ^3/uL (0-0.2); Hemoglobin 9.4 g/dL (12.2-16.2); Lymphocytes # (auto) 0.5 10 ^3/uL (0.4-5.4); Mean Corpuscular Hemoglobin 32.3 pg (28.0-32.0); Monocytes # (auto) 0.5 10 ^3/uL (0-1.3); Red Blood Cells 2.92 10^6/uL (4.0-5.20); White Blood Cell 4.2 10^3/uL (4.4-10.8)
[2023-10-02 06:45] LABS: Basophils % (auto) 1.2 % (0.0-2.0); Eosinophils # (auto) 0.1 10 ^3/uL (0-0.8); Eosinophils % (auto) 3.2 % (0.0-7.0); Hematocrit 29.8 % (36.0-46.0); Lymphocytes % (auto) 10.9 % (10.0-50.0); Mean Corpuscular Hgb Conc. 31.7 g/dL (32.0-36.0); Monocytes % (auto) 12.1 % (0.0-12.0); Neutrophils # (auto) 3.1 10 ^3/uL (1.6-8.6); Neutrophils % (auto) 72.6 % (37.0-80.0); Nucleated Red Blood Cells % 0.2 %; Red Cell Distribution Width 16.6 % (11.8-14.3)
[2023-10-02 07:21] LABS: Alkaline Phosphatase 82 U/L (46-116); Anion Gap 10 (5-15); BUN/Creatinine Ratio 5.8 (10.0-20.0); Calcium 7.6 mg/dL (8.7-10.4); Carbon Dioxide 25 mmol/L (20-30); Chloride 101 mmol/L (98-107); Glucose 85 mg/dL (74-106); Potassium 3.7 mmol/L (3.5-5.1); Sodium 136 mmol/L (136-145)
[2023-10-02 07:22] LABS: Albumin 3.3 g/dL (3.2-4.8); Aspartate Aminotransferase 9 U/L (13-40); Bilirubin, Total 0.5 mg/dL (0.2-1.0)
[2023-10-02 07:23] LABS: Total Protein 6.1 g/dL (5.7-8.2)
[2023-10-02 07:31] LABS: Alanine Aminotransferase 9 U/L (7-40); Blood Urea Nitrogen 35 mg/dL (9-23)
[2023-10-02] MEDS: cefTRIAXone 1GM/50ML D5W 50 ML IV SCH (09:27)
[2023-10-02] MEDS: SEVELAMER 800 MG TAB PO SCH ×3 (09:28→17:39)
[2023-10-02] MEDS: ASCORBIC ACID 500 MG TAB PO SCH ×2 (09:35→21:36)
[2023-10-02] MEDS: ATORVASTATIN 20 MG TAB PO SCH (09:35)
[2023-10-02] MEDS: CHOLECALCIFEROL (VITD3) 2,000 UNIT CAP/TAB PO SCH (09:35)
[2023-10-02] MEDS: CITALOPRAM HYDROBR 20 MG TAB PO SCH (09:36)
[2023-10-02] MEDS: ASPirin-EC 81 mg tab PO SCH (09:36)
[2023-10-02] MEDS: ZINC SULFATE 220mg CAP or TAB PO SCH (09:37)
[2023-10-02] MEDS: DexAMETHasone SOD PHOS 10MG/1ML VIAL INJ IV SCH (09:37)
[2023-10-02] MEDS: LABETALOL HCL 200 MG TAB PO SCH ×2 (09:51→21:36)
[2023-10-02] MEDS: AZITHROMYCIN 500MG/ 250ML 250 ML IV SCH ×2 (10:30→11:30)
[2023-10-02] MEDS: ACETAMINOPHEN 325 MG TAB PO PRN (10:30)
[2023-10-02] MEDS: REMDESIVIR 100mg 100 MG in SODIUM CHL 0.9% 230 ML IV SCH (15:50)
[2023-10-02] MEDS: NIFEdipine ER 30 MG TAB PO SCH (17:38)
[2023-10-02] MEDS: FUROSEMIDE 40 MG/4 ML VIAL IV SCH (17:39)
[2023-10-03] VITALS (9 sets, daily range): BP systolic 94–136; BP diastolic 55–71; PULSE 55–67; RESP 17–18; TEMP 97.7–97.9; O2SAT 92–99
[2023-10-03] MEDS: FUROSEMIDE 40 MG/4 ML VIAL IV SCH ×2 (06:11→18:00)
[2023-10-03] MEDS: cloNIDine HCL 0.1 MG TAB PO SCH (06:11)
[2023-10-03 06:34] LABS: Basophils # (auto) 0 10 ^3/uL (0-0.2); Basophils % (auto) 0.4 % (0.0-2.0); Eosinophils # (auto) 0 10 ^3/uL (0-0.8); Eosinophils % (auto) 0.1 % (0.0-7.0); Hematocrit 31.1 % (36.0-46.0); Hemoglobin 10.1 g/dL (12.2-16.2); Lymphocytes # (auto) 0.3 10 ^3/uL (0.4-5.4); Lymphocytes % (auto) 9.3 % (10.0-50.0); Mean Corpuscular Hemoglobin 32.8 pg (28.0-32.0); Mean Corpuscular Hgb Conc. 32.4 g/dL (32.0-36.0); Mean Corpuscular Volume 101.5 fL (80.0-100.0); Monocytes # (auto) 0.3 10 ^3/uL (0-1.3); Monocytes % (auto) 9.1 % (0.0-12.0); Neutrophils % (auto) 81.1 % (37.0-80.0); Nucleated Red Blood Cells % 0.1 %; Red Blood Cells 3.06 10^6/uL (4.0-5.20); Red Cell Distribution Width 15.9 % (11.8-14.3); White Blood Cell 3.6 10^3/uL (4.4-10.8)
[2023-10-03 06:40] LABS: Chloride 97 mmol/L (98-107); Potassium 4.4 mmol/L (3.5-5.1); Sodium 133 mmol/L (136-145)
[2023-10-03] MEDS ORDERED: HYDROcodone-ACET 5/325MG TAB ONE (06:40)
[2023-10-03 06:41] LABS: Anion Gap 12 (5-15); Carbon Dioxide 24 mmol/L (20-30)
[2023-10-03] MEDS: HYDROcodone-ACET 5/325MG TAB PO PRN (06:41)
[2023-10-03] MEDS: ACCU-CHEK COMFORT CURVE STRIP VI SCH ×4 (06:41→22:00)
[2023-10-03 06:42] LABS: Calcium 7.9 mg/dL (8.5-10.1)
[2023-10-03 06:46] LABS: BUN/Creatinine Ratio 6.5 (10.0-20.0); Glucose 171 mg/dL (74-106)
[2023-10-03 07:00] LABS: Blood Urea Nitrogen 48 mg/dL (9-23)
[2023-10-03] MEDS ORDERED: SODIUM CHL 0.9% 1000 ML BAG XX ONE (07:00)
[2023-10-03] MEDS: InsuLIN REG 1unit/0.01ml Soln (100units/ml) SC SCH ×4 (07:05→22:42)
[2023-10-03] MEDS: AZITHROMYCIN 500MG/ 250ML 250 ML IV SCH (10:00)
[2023-10-03] MEDS: LABETALOL HCL 200 MG TAB PO SCH ×2 (10:00→22:01)
[2023-10-03] MEDS: cefTRIAXone 1GM/50ML D5W 50 ML IV SCH (10:10)
[2023-10-03] MEDS: ZINC SULFATE 220mg CAP or TAB PO SCH (10:11)
[2023-10-03] MEDS: SEVELAMER 800 MG TAB PO SCH ×3 (10:11→18:42)
[2023-10-03] MEDS: CITALOPRAM HYDROBR 20 MG TAB PO SCH (10:12)
[2023-10-03] MEDS: ATORVASTATIN 20 MG TAB PO SCH (10:12)
[2023-10-03] MEDS: ASPirin-EC 81 mg tab PO SCH (10:12)
[2023-10-03] MEDS: CHOLECALCIFEROL (VITD3) 2,000 UNIT CAP/TAB PO SCH (10:17)
[2023-10-03] MEDS: DexAMETHasone SOD PHOS 10MG/1ML VIAL INJ IV SCH (10:17)
[2023-10-03] MEDS: ASCORBIC ACID 500 MG TAB PO SCH ×2 (10:17→22:00)
[2023-10-03 14:28] LABS: Body Fluid Polymorphonuclear 15 % (0-25); Body Fluid Red Blood Cells 23 CUMM (0-2000); Body Fluid White Blood Cells 20 CUMM (0-200)
[2023-10-03] MEDS: REMDESIVIR 100mg 100 MG in SODIUM CHL 0.9% 230 ML IV SCH (15:00)
[2023-10-03] MEDS: NIFEdipine ER 30 MG TAB PO SCH (18:00)
[2023-10-03] MEDS ORDERED: EPOETIN ALFA-EPBX 4,000 UNIT/ML VIAL SC ONE (21:00)
[2023-10-03] MEDS ORDERED: hydrALAZINE HCL 25 MG TAB ONE (21:56)
[2023-10-03] MEDS: hydrALAZINE HCL 25 MG TAB PO SCH (22:00)
[2023-10-04] VITALS (7 sets, daily range): BP systolic 133–174; BP diastolic 65–85; PULSE 66–98; RESP 14–20; TEMP 97.5–98.2; O2SAT 93–100
[2023-10-04] MEDS ORDERED: hydrALAZINE HCL 25 MG TAB ONE ×2 (05:06→22:00)
[2023-10-04] MEDS: FUROSEMIDE 40 MG/4 ML VIAL IV SCH ×2 (05:14→18:47)
[2023-10-04] MEDS: InsuLIN REG 1unit/0.01ml Soln (100units/ml) SC SCH ×4 (05:20→21:48)
[2023-10-04] MEDS: hydrALAZINE HCL 25 MG TAB PO SCH ×3 (05:26→22:01)
[2023-10-04] MEDS: ACCU-CHEK COMFORT CURVE STRIP VI SCH ×4 (05:33→21:49)
[2023-10-04] MEDS ORDERED: SODIUM CHL 0.9% 1000 ML BAG XX ONE (07:00)
[2023-10-04 07:23] LABS: Basophils # (auto) 0 10 ^3/uL (0-0.2); Basophils % (auto) 0.3 % (0.0-2.0); Eosinophils # (auto) 0 10 ^3/uL (0-0.8); Hematocrit 33.6 % (36.0-46.0); Hemoglobin 10.9 g/dL (12.2-16.2); Lymphocytes # (auto) 0.5 10 ^3/uL (0.4-5.4); Lymphocytes % (auto) 10.6 % (10.0-50.0); Mean Corpuscular Hemoglobin 32.4 pg (28.0-32.0); Mean Corpuscular Hgb Conc. 32.4 g/dL (32.0-36.0); Mean Corpuscular Volume 99.9 fL (80.0-100.0); Monocytes # (auto) 0.3 10 ^3/uL (0-1.3); Monocytes % (auto) 6.6 % (0.0-12.0); Neutrophils # (auto) 4.1 10 ^3/uL (1.6-8.6); Neutrophils % (auto) 82.5 % (37.0-80.0); Nucleated Red Blood Cells % 0.1 %; Red Blood Cells 3.36 10^6/uL (4.0-5.20); Red Cell Distribution Width 16.2 % (11.8-14.3); White Blood Cell 4.9 10^3/uL (4.4-10.8)
[2023-10-04 07:55] LABS: Chloride 98 mmol/L (98-107); Potassium 4.7 mmol/L (3.5-5.1); Sodium 133 mmol/L (136-145)
[2023-10-04 07:56] LABS: Anion Gap 12 (5-15); Calcium 7.8 mg/dL (8.5-10.1); Carbon Dioxide 23 mmol/L (20-30)
[2023-10-04 08:01] LABS: BUN/Creatinine Ratio 7.1 (10.0-20.0); Glucose 100 mg/dL (74-106)
[2023-10-04 08:03] LABS: Blood Urea Nitrogen 63 mg/dL (9-23)
[2023-10-04] MEDS: ASCORBIC ACID 500 MG TAB PO SCH ×2 (10:00→22:01)
[2023-10-04] MEDS: LABETALOL HCL 200 MG TAB PO SCH ×2 (10:00→21:41)
[2023-10-04] MEDS: cefTRIAXone 1GM/50ML D5W 50 ML IV SCH (10:22)
[2023-10-04] MEDS: SEVELAMER 800 MG TAB PO SCH ×3 (10:23→18:39)
[2023-10-04] MEDS: ZINC SULFATE 220mg CAP or TAB PO SCH (10:23)
[2023-10-04] MEDS: ASPirin-EC 81 mg tab PO SCH (10:24)
[2023-10-04] MEDS: ATORVASTATIN 20 MG TAB PO SCH (10:25)
[2023-10-04] MEDS: CITALOPRAM HYDROBR 20 MG TAB PO SCH (10:26)
[2023-10-04] MEDS: CHOLECALCIFEROL (VITD3) 2,000 UNIT CAP/TAB PO SCH (10:39)
[2023-10-04] MEDS: ENOXAPARIN SOD 30 MG/0.3 ML SYRINGE SC SCH (10:39)
[2023-10-04] MEDS: DexAMETHasone SOD PHOS 10MG/1ML VIAL INJ IV SCH (10:39)
[2023-10-04] MEDS ORDERED: ENOXAPARIN SOD 30 MG/0.3 ML SYRINGE ONE (10:39)
[2023-10-04] MEDS: AZITHROMYCIN 500MG/ 250ML 250 ML IV SCH (10:40)
[2023-10-04 11:06] LABS: Protein, Body Fluid 2.4 g/dL (.)
[2023-10-04] MEDS: REMDESIVIR 100mg 100 MG in SODIUM CHL 0.9% 230 ML IV SCH (15:00)
[2023-10-04] MEDS: NIFEdipine ER 30 MG TAB PO SCH (18:47)
[2023-10-05] VITALS (8 sets, daily range): BP systolic 120–145; BP diastolic 52–68; PULSE 79–90; RESP 20–22; TEMP 97.6–99.4; O2SAT 92–99
[2023-10-05] MEDS: FUROSEMIDE 40 MG/4 ML VIAL IV SCH ×2 (06:00→18:03)
[2023-10-05] MEDS: hydrALAZINE HCL 25 MG TAB PO SCH ×3 (06:00→21:43)
[2023-10-05] MEDS: ACCU-CHEK COMFORT CURVE STRIP VI SCH ×4 (06:18→21:41)
[2023-10-05] MEDS: InsuLIN REG 1unit/0.01ml Soln (100units/ml) SC SCH ×4 (06:18→21:42)
[2023-10-05] MEDS ORDERED: SODIUM CHL 0.9% 1000 ML BAG XX ONE (07:00)
[2023-10-05] MEDS: AZITHROMYCIN 500MG/ 250ML 250 ML IV SCH (09:44)
[2023-10-05] MEDS: DexAMETHasone SOD PHOS 10MG/1ML VIAL INJ IV SCH (09:45)
[2023-10-05] MEDS: cefTRIAXone 1GM/50ML D5W 50 ML IV SCH (09:45)
[2023-10-05] MEDS: ZINC SULFATE 220mg CAP or TAB PO SCH (09:46)
[2023-10-05] MEDS: CITALOPRAM HYDROBR 20 MG TAB PO SCH (09:46)
[2023-10-05] MEDS: ASCORBIC ACID 500 MG TAB PO SCH ×2 (09:46→21:43)
[2023-10-05] MEDS: ATORVASTATIN 20 MG TAB PO SCH (09:46)
[2023-10-05] MEDS: SEVELAMER 800 MG TAB PO SCH ×3 (09:50→17:56)
[2023-10-05] MEDS: ASPirin-EC 81 mg tab PO SCH (09:50)
[2023-10-05] MEDS: ENOXAPARIN SOD 30 MG/0.3 ML SYRINGE SC SCH (09:54)
[2023-10-05] MEDS: CHOLECALCIFEROL (VITD3) 2,000 UNIT CAP/TAB PO SCH (10:00)
[2023-10-05] MEDS: LABETALOL HCL 200 MG TAB PO SCH ×2 (10:00→21:43)
[2023-10-05 10:59] LABS: Albumin 3.7 g/dL (3.2-4.8); Bilirubin, Direct 0.3 mg/dL (<0.3); Bilirubin, Total 0.4 mg/dL (0.2-1.0); Total Protein 6.7 g/dL (5.7-8.2)
[2023-10-05] MEDS: HYDROcodone-ACET 5/325MG TAB PO PRN (12:42)
[2023-10-05 15:50] LABS: Base Excess -1.5 mmol/L (-2.0-2.0)
[2023-10-05] MEDS: REMDESIVIR 100mg 100 MG in SODIUM CHL 0.9% 230 ML IV SCH (16:09)
[2023-10-05] MEDS: NIFEdipine ER 30 MG TAB PO SCH (17:56)
[2023-10-06] VITALS (8 sets, daily range): BP systolic 137–160; BP diastolic 60–90; PULSE 79–95; RESP 15–20; TEMP 36.8; O2SAT 92–100
[2023-10-06] MEDS: ACETAMINOPHEN 325 MG TAB PO PRN (02:56)
[2023-10-06] MEDS: InsuLIN REG 1unit/0.01ml Soln (100units/ml) SC SCH ×4 (06:11→20:33)
[2023-10-06] MEDS: ACCU-CHEK COMFORT CURVE STRIP VI SCH ×4 (06:17→22:00)
[2023-10-06] MEDS: hydrALAZINE HCL 25 MG TAB PO SCH ×3 (06:17→22:55)
[2023-10-06] MEDS: FUROSEMIDE 40 MG/4 ML VIAL IV SCH ×2 (06:17→17:40)
[2023-10-06] MEDS ORDERED: SODIUM CHL 0.9% 1000 ML BAG XX ONE (07:00)
[2023-10-06] MEDS: SEVELAMER 800 MG TAB PO SCH ×3 (08:00→17:40)
[2023-10-06] MEDS: cefTRIAXone 1GM/50ML D5W 50 ML IV SCH (08:42)
[2023-10-06] MEDS: DexAMETHasone SOD PHOS 10MG/1ML VIAL INJ IV SCH (09:42)
[2023-10-06] MEDS: ZINC SULFATE 220mg CAP or TAB PO SCH (09:43)
[2023-10-06] MEDS: ATORVASTATIN 20 MG TAB PO SCH (09:43)
[2023-10-06] MEDS: AZITHROMYCIN 500MG/ 250ML 250 ML IV SCH (09:43)
[2023-10-06] MEDS: CITALOPRAM HYDROBR 20 MG TAB PO SCH (09:43)
[2023-10-06] MEDS: ASCORBIC ACID 500 MG TAB PO SCH ×2 (09:43→22:56)
[2023-10-06] MEDS: ASPirin-EC 81 mg tab PO SCH (09:43)
[2023-10-06] MEDS: LABETALOL HCL 200 MG TAB PO SCH ×2 (09:43→22:56)
[2023-10-06] MEDS: CHOLECALCIFEROL (VITD3) 2,000 UNIT CAP/TAB PO SCH (09:43)
[2023-10-06] MEDS: ENOXAPARIN SOD 30 MG/0.3 ML SYRINGE SC SCH (09:43)
[2023-10-06] MEDS: NIFEdipine ER 30 MG TAB PO SCH (17:40)
[2023-10-07] VITALS (7 sets, daily range): BP systolic 111–145; BP diastolic 56–61; PULSE 76–86; RESP 17–21; TEMP 97.3–99.1; O2SAT 93–100
[2023-10-07] MEDS: InsuLIN REG 1unit/0.01ml Soln (100units/ml) SC SCH ×4 (06:27→21:23)
[2023-10-07] MEDS: ACCU-CHEK COMFORT CURVE STRIP VI SCH ×4 (06:27→21:23)
[2023-10-07 06:31] LABS: Basophils # (auto) 0 10 ^3/uL (0-0.2); Basophils % (auto) 0.1 % (0.0-2.0); Eosinophils # (auto) 0.1 10 ^3/uL (0-0.8); Eosinophils % (auto) 0.7 % (0.0-7.0); Hematocrit 31.6 % (36.0-46.0); Hemoglobin 10.3 g/dL (12.2-16.2); Lymphocytes # (auto) 0.6 10 ^3/uL (0.4-5.4); Lymphocytes % (auto) 5.8 % (10.0-50.0); Mean Corpuscular Hemoglobin 32.4 pg (28.0-32.0); Mean Corpuscular Hgb Conc. 32.5 g/dL (32.0-36.0); Mean Corpuscular Volume 99.8 fL (80.0-100.0); Monocytes # (auto) 0.7 10 ^3/uL (0-1.3); Monocytes % (auto) 6.9 % (0.0-12.0); Neutrophils % (auto) 86.5 % (37.0-80.0); Red Blood Cells 3.17 10^6/uL (4.0-5.20); Red Cell Distribution Width 16.2 % (11.8-14.3); White Blood Cell 10.4 10^3/uL (4.4-10.8)
[2023-10-07] MEDS: hydrALAZINE HCL 25 MG TAB PO SCH ×3 (06:37→21:22)
[2023-10-07] MEDS: FUROSEMIDE 40 MG/4 ML VIAL IV SCH ×2 (06:38→18:00)
[2023-10-07 06:43] LABS: Chloride 106 mmol/L (98-107); Potassium 3.7 mmol/L (3.5-5.1); Sodium 142 mmol/L (136-145)
[2023-10-07 06:44] LABS: Anion Gap 8 (5-15); Calcium 8.3 mg/dL (8.5-10.1); Carbon Dioxide 28 mmol/L (20-30)
[2023-10-07 06:48] LABS: Glucose 97 mg/dL (74-106)
[2023-10-07 06:49] LABS: BUN/Creatinine Ratio 7.8 (10.0-20.0); Blood Urea Nitrogen 43 mg/dL (9-23)
[2023-10-07] MEDS: cefTRIAXone 1GM/50ML D5W 50 ML IV SCH (10:55)
[2023-10-07] MEDS: DexAMETHasone SOD PHOS 10MG/1ML VIAL INJ IV SCH (10:55)
[2023-10-07] MEDS: CITALOPRAM HYDROBR 20 MG TAB PO SCH (10:56)
[2023-10-07] MEDS: LABETALOL HCL 200 MG TAB PO SCH ×2 (10:56→21:23)
[2023-10-07] MEDS: SEVELAMER 800 MG TAB PO SCH ×3 (10:56→18:00)
[2023-10-07] MEDS: ENOXAPARIN SOD 30 MG/0.3 ML SYRINGE SC SCH (10:56)
[2023-10-07] MEDS: ZINC SULFATE 220mg CAP or TAB PO SCH (10:56)
[2023-10-07] MEDS: CHOLECALCIFEROL (VITD3) 2,000 UNIT CAP/TAB PO SCH (10:56)
[2023-10-07] MEDS: ATORVASTATIN 20 MG TAB PO SCH (10:56)
[2023-10-07] MEDS: ASPirin-EC 81 mg tab PO SCH (11:03)
[2023-10-07] MEDS: ASCORBIC ACID 500 MG TAB PO SCH ×2 (11:03→21:22)
[2023-10-07] MEDS: AZITHROMYCIN 500MG/ 250ML 250 ML IV SCH (11:04)
[2023-10-07 15:24] LABS: Base Excess 1.3 mmol/L (-2.0-2.0)
[2023-10-07] MEDS: NIFEdipine ER 30 MG TAB PO SCH (18:00)
[2023-10-07] MEDS ORDERED: IOHEXOL 350 MG/ML 100ML IJ ONE (21:37)
[2023-10-08] VITALS (7 sets, daily range): BP systolic 101–120; BP diastolic 49–55; PULSE 57–76; RESP 16–22; TEMP 97.9–98.5; O2SAT 93–97
[2023-10-08] MEDS: FUROSEMIDE 40 MG/4 ML VIAL IV SCH ×2 (05:17→18:36)
[2023-10-08] MEDS: hydrALAZINE HCL 25 MG TAB PO SCH ×3 (05:36→21:38)
[2023-10-08] MEDS: ACCU-CHEK COMFORT CURVE STRIP VI SCH ×4 (06:32→21:37)
[2023-10-08] MEDS: InsuLIN REG 1unit/0.01ml Soln (100units/ml) SC SCH ×4 (06:32→21:42)
[2023-10-08 06:48] LABS: Chloride 103 mmol/L (98-107); Potassium 4.1 mmol/L (3.5-5.1); Sodium 141 mmol/L (136-145)
[2023-10-08 06:49] LABS: Anion Gap 11 (5-15); Calcium 8.6 mg/dL (8.5-10.1); Carbon Dioxide 27 mmol/L (20-30)
[2023-10-08 06:54] LABS: BUN/Creatinine Ratio 10.1 (10.0-20.0); Glucose 100 mg/dL (74-106)
[2023-10-08 07:06] LABS: Blood Urea Nitrogen 68 mg/dL (9-23)
[2023-10-08] MEDS ORDERED: IOHEXOL 350 MG/ML 100ML IJ ONE (07:58)
[2023-10-08] MEDS: SEVELAMER 800 MG TAB PO SCH ×3 (08:38→18:28)
[2023-10-08] MEDS: cefTRIAXone 1GM/50ML D5W 50 ML IV SCH (08:38)
[2023-10-08] MEDS: CITALOPRAM HYDROBR 20 MG TAB PO SCH (11:29)
[2023-10-08] MEDS: DexAMETHasone SOD PHOS 10MG/1ML VIAL INJ IV SCH (11:29)
[2023-10-08] MEDS: ZINC SULFATE 220mg CAP or TAB PO SCH (11:29)
[2023-10-08] MEDS: ASCORBIC ACID 500 MG TAB PO SCH ×2 (11:30→21:37)
[2023-10-08] MEDS: ATORVASTATIN 20 MG TAB PO SCH (11:30)
[2023-10-08] MEDS: LABETALOL HCL 200 MG TAB PO SCH ×2 (11:30→21:37)
[2023-10-08] MEDS: ASPirin-EC 81 mg tab PO SCH (11:30)
[2023-10-08] MEDS: CHOLECALCIFEROL (VITD3) 2,000 UNIT CAP/TAB PO SCH (11:31)
[2023-10-08] MEDS: AZITHROMYCIN 250 MG TAB PO SCH (11:31)
[2023-10-08] MEDS: ENOXAPARIN SOD 30 MG/0.3 ML SYRINGE SC SCH (11:31)
[2023-10-08] MEDS: NIFEdipine ER 30 MG TAB PO SCH (18:37)
[2023-10-09] VITALS (8 sets, daily range): BP systolic 109–122; BP diastolic 50–64; PULSE 64–86; RESP 16–18; TEMP 97.6–98.1; O2SAT 93–100
[2023-10-09] MEDS: hydrALAZINE HCL 25 MG TAB PO SCH ×3 (06:00→21:49)
[2023-10-09] MEDS: ACCU-CHEK COMFORT CURVE STRIP VI SCH ×3 (06:48→21:53)
[2023-10-09] MEDS: InsuLIN REG 1unit/0.01ml Soln (100units/ml) SC SCH ×3 (06:48→21:59)
[2023-10-09] MEDS: FUROSEMIDE 40 MG/4 ML VIAL IV SCH (06:48)
[2023-10-09 06:53] LABS: Anion Gap 11 (5-15); Carbon Dioxide 25 mmol/L (20-30); Chloride 102 mmol/L (98-107); Potassium 4.6 mmol/L (3.5-5.1); Sodium 138 mmol/L (136-145)
[2023-10-09 06:55] LABS: Calcium 8.5 mg/dL (8.5-10.1)
[2023-10-09 06:59] LABS: BUN/Creatinine Ratio 10.6 (10.0-20.0); Glucose 101 mg/dL (74-106)
[2023-10-09 07:06] LABS: Blood Urea Nitrogen 81 mg/dL (9-23)
[2023-10-09] MEDS: cefTRIAXone 1GM/50ML D5W 50 ML IV SCH (09:00)
[2023-10-09] MEDS: SEVELAMER 800 MG TAB PO SCH ×2 (09:30→12:18)
[2023-10-09] MEDS: LABETALOL HCL 200 MG TAB PO SCH ×2 (10:00→21:49)
[2023-10-09] MEDS: ZINC SULFATE 220mg CAP or TAB PO SCH (11:37)
[2023-10-09] MEDS: ENOXAPARIN SOD 30 MG/0.3 ML SYRINGE SC SCH (11:37)
[2023-10-09] MEDS: AZITHROMYCIN 250 MG TAB PO SCH (11:37)
[2023-10-09] MEDS: CITALOPRAM HYDROBR 20 MG TAB PO SCH (11:38)
[2023-10-09] MEDS: DexAMETHasone SOD PHOS 10MG/1ML VIAL INJ IV SCH (11:38)
[2023-10-09] MEDS: CHOLECALCIFEROL (VITD3) 2,000 UNIT CAP/TAB PO SCH (11:38)
[2023-10-09] MEDS: ASCORBIC ACID 500 MG TAB PO SCH ×2 (11:38→21:49)
[2023-10-09] MEDS: ASPirin-EC 81 mg tab PO SCH (11:38)
[2023-10-09] MEDS: ATORVASTATIN 20 MG TAB PO SCH (11:38)
[2023-10-10 05:00] VITALS: BP_SYST 121; BP_SYST 139; BP_DIAS 60; BP_DIAS 76; PULSE 75; PULSE 80; RESP 16; TEMP 98.2; TEMP 98.6; O2SAT 98; O2SAT 99
[2023-10-10 06:10] LABS: Chloride 102 mmol/L (98-107); Potassium 3.4 mmol/L (3.5-5.1); Sodium 142 mmol/L (136-145)
[2023-10-10 06:11] LABS: Anion Gap 10 (5-15); Carbon Dioxide 30 mmol/L (20-30)
[2023-10-10 06:12] LABS: Calcium 8.6 mg/dL (8.5-10.1)
[2023-10-10] MEDS: FUROSEMIDE 40 MG/4 ML VIAL IV SCH (06:14)
[2023-10-10] MEDS: hydrALAZINE HCL 25 MG TAB PO SCH (06:15)
[2023-10-10 06:16] LABS: BUN/Creatinine Ratio 9.4 (10.0-20.0); Glucose 104 mg/dL (74-106)
[2023-10-10] MEDS: ACCU-CHEK COMFORT CURVE STRIP VI SCH (06:21)
[2023-10-10 06:37] LABS: Blood Urea Nitrogen 41 mg/dL (9-23)
[2023-10-10] MEDS: InsuLIN REG 1unit/0.01ml Soln (100units/ml) SC SCH (06:50)
[2023-10-10] MEDS ORDERED: SODIUM CHL 0.9% 1000 ML BAG XX ONE (07:00)
[2023-10-10 08:00] VITALS: BP 133/55; PULSE 70; PULSE 71; RESP 16; TEMP 98.3; O2SAT 98
[2023-10-10] MEDS: SEVELAMER 800 MG TAB PO SCH (08:24)
[2023-10-10] MEDS: cefTRIAXone 1GM/50ML D5W 50 ML IV SCH (08:24)
[2023-10-10 09:00] VITALS: BP 133/55; PULSE 70; RESP 16; TEMP 98.3; O2SAT 98
[2023-10-10 10:00] VITALS: O2SAT 98
[2023-10-10] MEDS: AZITHROMYCIN 250 MG TAB PO SCH (10:00)
[2023-10-10] MEDS: CITALOPRAM HYDROBR 20 MG TAB PO SCH (10:00)
[2023-10-10] MEDS: ASCORBIC ACID 500 MG TAB PO SCH (10:00)
[2023-10-10] MEDS: ATORVASTATIN 20 MG TAB PO SCH (10:00)
[2023-10-10] MEDS: DexAMETHasone SOD PHOS 10MG/1ML VIAL INJ IV SCH (10:00)
[2023-10-10] MEDS: CHOLECALCIFEROL (VITD3) 2,000 UNIT CAP/TAB PO SCH (10:00)
[2023-10-10] MEDS: ZINC SULFATE 220mg CAP or TAB PO SCH (10:00)
[2023-10-10] MEDS: LABETALOL HCL 200 MG TAB PO SCH (10:00)
[2023-10-10] MEDS: ASPirin-EC 81 mg tab PO SCH (10:00)
[2023-10-10] MEDS: ENOXAPARIN SOD 30 MG/0.3 ML SYRINGE SC SCH (10:00)
[2023-10-10 10:23] VITALS: BP 133/55; PULSE 70; RESP 16; TEMP 98.3; O2SAT 98
[2023-10-10] MEDS ORDERED: EPOETIN ALFA-EPBX 4,000 UNIT/ML VIAL SC ONE (21:00)
[2023-10-11] MEDS ORDERED: SODIUM CHL 0.9% 1000 ML BAG XX ONE (07:00)
[2023-10-11] MEDS ORDERED: HEPARIN SODIUM (PORCINE) 5000 UNITS/ML 1ML VIAL SC SCH (10:00)
[2023-10-11] MEDS ORDERED: EPOETIN ALFA-EPBX 4,000 UNIT/ML VIAL SC ONE (21:00)
[2023-10-13 09:29] LABS: Hepatitis B Surface Antigen Negative (Negative)
[2023-10-13 09:49] LABS: Hepatitis A Ab IgM Negative
[2023-10-13 09:50] LABS: Hepatitis B Core IgM Negative
[2023-10-13 09:52] LABS: Hepatitis C Antibody Negative (Negative)
== END 2023-10-10 11:06 | disposition home health service (06) | DRG 177 ==
LOC: ER 14:25 → TELE 19:28 → TELE-WESTW 10-01 10:28
PROVIDERS: ADMIT Nurse Practitioner Family; ATTEND Nurse Practitioner Acute Care
PROC: XW033E5 Introduction of Remdesivir Anti-infective into Peripheral Vein, Percutaneous Approach, New Technology Group 5 (ICD-10-PCS; principal; 2023-10-01)
PROC: 5A1D70Z Performance of Urinary Filtration, Intermittent, Less than 6 Hours Per Day (ICD-10-PCS; 2023-10-01)
PROC: 0W993ZZ Drainage of Right Pleural Cavity, Percutaneous Approach (ICD-10-PCS; 2023-10-03)
PROC: 5A1D70Z Performance of Urinary Filtration, Intermittent, Less than 6 Hours Per Day (ICD-10-PCS; 2023-10-04)
PROC: 5A1D70Z Performance of Urinary Filtration, Intermittent, Less than 6 Hours Per Day (ICD-10-PCS; 2023-10-06)
PROC: 0W993ZZ Drainage of Right Pleural Cavity, Percutaneous Approach (ICD-10-PCS; 2023-10-09)
PROC: 5A1D70Z Performance of Urinary Filtration, Intermittent, Less than 6 Hours Per Day (ICD-10-PCS; 2023-10-09)
DX: U07.1 COVID-19 (principal); I21.A1 Myocardial infarction type 2; I50.33 Acute on chronic diastolic (congestive) heart failure; J12.82 Pneumonia due to coronavirus disease 2019; J96.21 Acute and chronic respiratory failure with hypoxia; N18.6 End stage renal disease; I13.2 Hypertensive heart and chronic kidney disease with heart failure and with stage 5 chronic kidney disease, or end stage renal disease; E87.20 Acidosis, unspecified; J98.11 Atelectasis; Z99.2 Dependence on renal dialysis; D63.1 Anemia in chronic kidney disease; E11.22 Type 2 diabetes mellitus with diabetic chronic kidney disease; E87.5 Hyperkalemia; K52.9 Noninfective gastroenteritis and colitis, unspecified; E11.649 Type 2 diabetes mellitus with hypoglycemia without coma; R56.9 Unspecified convulsions; R31.9 Hematuria, unspecified; E66.9 Obesity, unspecified; Z23 Encounter for immunization; E78.5 Hyperlipidemia, unspecified; F32.A Depression, unspecified; Z68.31 Body mass index [BMI] 31.0-31.9, adult; I25.2 Old myocardial infarction; Z82.49 Family history of ischemic heart disease and other diseases of the circulatory system; Z83.3 Family history of diabetes mellitus; Z63.4 Disappearance and death of family member
CPT/HCPCS: 36415; 36600; 71045; 71275; 76604; 80048; 80053; 80074; 80076; 82805; 82962; 83605; 83880; 83986; 84132; 84484; 85025; 85610; 85730; 86141; 87205; 87340; 87426; 87804; 89051; 90935; 93005; 94640; 99291; G0378; G9035; J1100; J1642; J1815; J2405; J7060